=== PATIENT | female | born 1955 | race Caucasian/White ===

== ENCOUNTER → 2019-05-20 12:47 | Outpatient (BNVA) | payer MEDICARE, MEDICAID, SELFPAY | PROVIDERS: Family Provider Family Medicine; PCP Family Medicine; Visit Provider Nurse Practitioner Psychiatric/Mental Health | DX: F31.81 Bipolar II disorder (principal); F17.210 Nicotine dependence, cigarettes, uncomplicated; F41.1 Generalized anxiety disorder; F10.21 Alcohol dependence, in remission | CPT/HCPCS: 99213 ==

== ENCOUNTER → 2019-07-15 09:52 | Outpatient (BNVA) | payer MEDICARE, MEDICAID, SELFPAY | PROVIDERS: Family Provider Family Medicine; PCP Family Medicine; Visit Provider Nurse Practitioner Psychiatric/Mental Health | DX: F31.81 Bipolar II disorder (principal); F41.1 Generalized anxiety disorder; F17.210 Nicotine dependence, cigarettes, uncomplicated; F10.21 Alcohol dependence, in remission | CPT/HCPCS: 99213 ==

== ENCOUNTER → 2019-10-17 08:16 | Outpatient (BNVA) | payer MEDICARE, MEDICAID, SELFPAY | PROVIDERS: Family Provider Family Medicine; PCP Family Medicine; Visit Provider Nurse Practitioner Psychiatric/Mental Health | DX: F31.81 Bipolar II disorder (principal); F41.1 Generalized anxiety disorder; F17.210 Nicotine dependence, cigarettes, uncomplicated; F10.21 Alcohol dependence, in remission | CPT/HCPCS: 99213 ==

== ENCOUNTER → 2019-11-12 07:32 | Outpatient (BNVA) | payer MEDICARE, MEDICAID, SELFPAY | PROVIDERS: Family Provider Family Medicine; PCP Family Medicine; Visit Provider Nurse Practitioner Psychiatric/Mental Health | DX: F31.81 Bipolar II disorder (principal); F41.1 Generalized anxiety disorder; F17.210 Nicotine dependence, cigarettes, uncomplicated; F10.21 Alcohol dependence, in remission | CPT/HCPCS: 99214 ==

== ENCOUNTER → 2019-11-18 08:56 | Outpatient (BNVA) | payer MEDICARE, MEDICAID, SELFPAY | PROVIDERS: Family Provider Family Medicine; PCP Family Medicine; Visit Provider Nurse Practitioner Psychiatric/Mental Health | DX: Z79.899 Other long term (current) drug therapy (principal) | CPT/HCPCS: 80061; 83036 ==

== ENCOUNTER → 2019-12-11 07:27 | Outpatient (BNVA) | payer MEDICARE, MEDICAID, SELFPAY | PROVIDERS: Family Provider Family Medicine; PCP Family Medicine; Visit Provider Nurse Practitioner Psychiatric/Mental Health | DX: F31.81 Bipolar II disorder (principal); F41.1 Generalized anxiety disorder; F17.210 Nicotine dependence, cigarettes, uncomplicated; F10.21 Alcohol dependence, in remission | CPT/HCPCS: 99214 ==

== ENCOUNTER → 2020-01-22 07:52 | Outpatient (BNVA) | payer MEDICARE, MEDICAID, SELFPAY | PROVIDERS: Family Provider Family Medicine; PCP Family Medicine; Visit Provider Nurse Practitioner Psychiatric/Mental Health | DX: F31.81 Bipolar II disorder (principal); F41.1 Generalized anxiety disorder; F17.210 Nicotine dependence, cigarettes, uncomplicated; F10.21 Alcohol dependence, in remission | CPT/HCPCS: 99213 ==

== ENCOUNTER → 2020-02-26 07:30 | Outpatient (BNVA) | payer MEDICARE, MEDICAID, SELFPAY | PROVIDERS: Family Provider Family Medicine; PCP Family Medicine; Visit Provider Nurse Practitioner Psychiatric/Mental Health | DX: F31.81 Bipolar II disorder (principal); F41.1 Generalized anxiety disorder; F17.210 Nicotine dependence, cigarettes, uncomplicated; F10.21 Alcohol dependence, in remission | CPT/HCPCS: 99213 ==

== ENCOUNTER → 2020-04-20 07:41 | Outpatient (BNVA) | payer MEDICARE, MEDICAID, SELFPAY | PROVIDERS: Family Provider Family Medicine; PCP Family Medicine; Visit Provider Nurse Practitioner Psychiatric/Mental Health | DX: F31.81 Bipolar II disorder (principal); F41.1 Generalized anxiety disorder; F17.210 Nicotine dependence, cigarettes, uncomplicated | CPT/HCPCS: 99214 ==

== ENCOUNTER → 2020-04-21 14:58 | Outpatient (BNVA) | payer MEDICARE, MEDICAID, SELFPAY | PROVIDERS: Family Provider Family Medicine; PCP Family Medicine; Visit Provider Internal Medicine | DX: Z11.59 Encounter for screening for other viral diseases (principal); Z86.010 Personal history of colon polyps; Z01.818 Encounter for other preprocedural examination | CPT/HCPCS: 87635 ==

== ENCOUNTER 2020-04-27 08:29 | Day surgery (SDC) | payer MEDICARE, MEDICAID, SELFPAY ==
[2020-04-27 08:43] VITALS: BP 173/85; PULSE 81; RESP 18; O2SAT 96
[2020-04-27] MEDS: sodium chloride 0.9% 1,000 ML 30 ML IV (08:52)
--- NOTE | 2020-04-27 09:06 | ANES.PREANE2 ---
Pre-Anesthetic Assessment Pre-Anesthetic Assessment: Height/Weight: Height 1.65 m Weight 74.843 kg Pulse Resp BP Pulse Ox 81 18 173/85 96 04/27/20 08:43 04/27/20 08:43 04/27/20 08:43 04/27/20 08:43 Preop Diagnosis: hematochezia Proposed Procedure: Operation Date: 04/27/20 09:30 Proposed Procedures p Colonoscopy 40599 Z86.010(Not Applicable) - Tariq Carroll MD Familial anesthetic complications: None Was Beta Celina taken within 24 hours: N/A Last intake: Intake Last Liquid Date 04/26/20 Last Liquid Time 22:30 Last Solid Date 04/25/20 Last Solid Time 12:00 Social: Social History: Alcohol (bottle of wine nightly, last drink monday) and Tobacco Comment: No hx of seizures from alchohol withdrawal Exam: Pre-Anes Outpt Exam: alert, oriented x 3, clear to auscultation bilaterally and regular rate & rhythm Airway: MP: 3 Dentition: Full Pulmonary: Pulmonary: COPD CV/HEM: CV/HEM: HTN GI: GI: GERD Neuropsych: Neuropsych: Anxiety Anesthetic Plan: ASA status: 2 Anesthesia: MAC Risk of > 500 ml blood loss (7ml/kg in children): No Meds/Allergies Current Medications: Current Medications Generic Name Dose Route Start Last Admin Trade Name Freq PRN Reason Stop Dose Admin Sodium Chloride 1,000 mls @ 30 ml s/hr 04/27/20 08:45 04/27/20 08:52 Sodium Chloride 0.9% IV 04/28/20 08:44 30 mls/hr .Q24H BRITNEY Administration PFSH Anesthesia PFSH: Medical History Alcohol dependence in sustained full remission Bipolar II disorder Generalized anxiety disorder Nicotine dependence, cigarettes, uncomplicated Non morbid obesity Social History (Updated 04/21/20 @ 13:[address]) Smoking and tobacco status: current every day smoker Quit status (tobacco): has tried quititng History of recent travel: No Data Anesthesia Cardiac Studies: No Data to Display
--- NOTE | 2020-04-27 09:50 | W.PM.OPSUD ---
Surgery/Procedure H&P Update DATE OF PROCEDURE: April 27, 2020 DATE H&P PERFORMED: 04/21/20 PREOP DIAGNOSIS: hematochezia PLANNED PROCEDURE: Operation Date: 04/27/20 09:30 Proposed Procedures p Colonoscopy 49519 Z86.010(Not Applicable) - Tariq Carroll MD
[2020-04-27 10:23] VITALS: BP 150/82; PULSE 72; RESP 16; TEMP 36.1; O2SAT 97
[2020-04-27 10:41] VITALS: BP 161/72; PULSE 47; RESP 16; O2SAT 97
--- NOTE | 2020-04-27 11:53 | ANE.PACU2 ---
Documented by User: Manoj Rosenberg CRNA 04/27/20 11:53 Inpatient post-anesthesia follow up: Airway intact: Yes Vital signs: Temperature 97 F Pulse Rate 47 Respiratory Rate 16 Blood Pressure 161/72 Pulse Oximetry 97 Oxygen Delivery Me thod Room Air Oxygen Flow Rate Fraction of Inspir ed Oxygen Hydration adequate: Yes Nausea and vomiting: No Pain level: 1 Mental status: Baseline
== END 2020-04-27 10:55 | disposition home or self-care (01) ==
PROVIDERS: PCP Family Medicine; Visit Provider Internal Medicine
PROC: 0DJD8ZZ Inspection of Lower Intestinal Tract, Via Natural or Artificial Opening Endoscopic (ICD-10-PCS; CPT 45378; principal; 2020-04-27 09:30)
DX: K92.1 Melena (principal); K52.9 Noninfective gastroenteritis and colitis, unspecified; Z86.010 Personal history of colon polyps; F31.81 Bipolar II disorder; F17.210 Nicotine dependence, cigarettes, uncomplicated; J44.9 Chronic obstructive pulmonary disease, unspecified; I10 Essential (primary) hypertension; K21.9 Gastro-esophageal reflux disease without esophagitis; F41.9 Anxiety disorder, unspecified
CPT/HCPCS: 12345; 45380; 88305; J2704; J7030

== ENCOUNTER → 2020-05-18 07:37 | Outpatient (BNVA) | payer MEDICARE, MEDICAID, SELFPAY | PROVIDERS: PCP Family Medicine; Visit Provider Nurse Practitioner Psychiatric/Mental Health | DX: F31.81 Bipolar II disorder (principal); F41.1 Generalized anxiety disorder; F17.210 Nicotine dependence, cigarettes, uncomplicated | CPT/HCPCS: 99213 ==

== ENCOUNTER → 2020-07-06 07:27 | Outpatient (BNVA) | payer MEDICARE, MEDICAID, SELFPAY | PROVIDERS: PCP Family Medicine; Visit Provider Nurse Practitioner Psychiatric/Mental Health | DX: F31.81 Bipolar II disorder (principal); F41.1 Generalized anxiety disorder; F17.210 Nicotine dependence, cigarettes, uncomplicated; F10.21 Alcohol dependence, in remission | CPT/HCPCS: 99214 ==

== ENCOUNTER → 2020-08-24 07:29 | Outpatient (BNVA) | payer MEDICARE, MEDICAID, SELFPAY | PROVIDERS: PCP Family Medicine; Visit Provider Nurse Practitioner Psychiatric/Mental Health | DX: F31.81 Bipolar II disorder (principal); F41.1 Generalized anxiety disorder; F17.210 Nicotine dependence, cigarettes, uncomplicated; F10.21 Alcohol dependence, in remission | CPT/HCPCS: 99214 ==

== ENCOUNTER → 2020-09-28 07:19 | Outpatient (BNVA) | payer MEDICARE, MEDICAID, SELFPAY | PROVIDERS: PCP Family Medicine; Visit Provider Nurse Practitioner Psychiatric/Mental Health | DX: F31.81 Bipolar II disorder (principal); F41.1 Generalized anxiety disorder; F17.210 Nicotine dependence, cigarettes, uncomplicated; Z79.899 Other long term (current) drug therapy; F10.21 Alcohol dependence, in remission | CPT/HCPCS: 99214 ==

== ENCOUNTER → 2020-09-30 09:24 | Outpatient (BNVA) | payer MEDICARE, MEDICAID, SELFPAY | PROVIDERS: PCP Family Medicine; Visit Provider Nurse Practitioner Psychiatric/Mental Health | DX: S82.851A Displaced trimalleolar fracture of right lower leg, initial encounter for closed fracture (principal); X58.XXXA Exposure to other specified factors, initial encounter | CPT/HCPCS: 73610 ==

== ENCOUNTER 2020-09-30 15:32 | Outpatient (CLI) | payer MEDICARE, MEDICAID, SELFPAY | END 2020-09-30 15:33 | disposition home or self-care (01) | LOC: SPT 15:33 | PROVIDERS: PCP Family Medicine; Visit Provider Specialist | DX: Z46.89 Encounter for fitting and adjustment of other specified devices (principal); S82.851D Displaced trimalleolar fracture of right lower leg, subsequent encounter for closed fracture with routine healing; X58.XXXD Exposure to other specified factors, subsequent encounter | CPT/HCPCS: 80053; 80061; 83036; 97760; L4361 ==

== ENCOUNTER 2020-09-30 20:35 | Emergency (ER) | payer MEDICARE, MEDICAID, SELFPAY ==
[2020-09-30 20:45] VITALS: BP 154/69; PULSE 86; RESP 16; TEMP 36.8; O2SAT 95; BMI 26.1
[2020-09-30 21:02] VITALS: BP 140/71; PULSE 83; RESP 18; O2SAT 95
--- NOTE | 2020-09-30 21:06 | W.ED.GENADLT ---
HPI - General Adult General: Chief complaint: General Medical Stated complaint: low potassium, low sodium Time Seen by Provider: 09/30/20 20:39 Source: patient Mode of arrival: ambulatory Limitations: no limitations History of Present Illness: HPI narrative: 65-year-old female who states she had. But none today and her provider called her today and told she come the ER for low sodium and potassium. Her sodium level was 129 potassium was 2.8. She has no medical complaints. States she been feeling fine. She had no Associated symptoms: Deny chest pain, dyspnea, headache(s), nausea, rash or vomiting Review of Systems Const: Denies: fever(s), chills, body aches or change in appetite Eyes: Denies: blurry vision or eye discomfort ENMT: Denies: throat pain or dental pain Card: Denies: chest pain Resp: Denies: dyspnea GI: Denies: abdominal pain, nausea, vomiting or diarrhea : Denies: dysuria Musc: Denies: neck pain or back pain Skin/Breast: Denies: rash Neuro: Denies: headache(s) Psych: Denies: depression Neil/Lymph: Denies: easy bruising All/Imm: Denies: urticaria PFSH ED PFSH: Medical History Alcohol dependence in sustained full remission Bipolar II disorder Generalized anxiety disorder Nicotine dependence, cigarettes, uncomplicated Non morbid obesity Social History Smoking and tobacco status: current every day smoker Quit status (tobacco): has tried quititng History of recent travel: No Physical Exam Const: COMMON NORMALS: no acute distress, patient oriented x3 and healthy appearing HENMT: COMMON NORMALS: normocephalic and atraumatic HEAD & SCALP: normocephalic and atraumatic Eye: COMMON NORMALS: Equal, round and reactive pupils present and EOMs intact bilaterally PUPIL: Yes Equal, round and reactive pupils present Neck/C-Spine: COMMON NORMALS: full ROM and supple Chest: COMMONS NORMALS: normal inspection of the chest and normal palpation of entire chest wall Resp: COMMON NORMALS: normal respiratory effort, No retractions, No use of accessory muscles and clear to auscultation bilaterally AUSCULTATION: clear to auscultation bilaterally Cardio: COMMON NORMALS: regular rate, regular rhythm and No murmurs present (Cardio) RATE: regular rate RHYTHM: regular rhythm GI: COMMON NORMALS: Normal to inspection, nondistended, normoactive bowel sounds present, Soft to palpation, non-tender and no masses PALPATION: Yes Soft to palpation Extremity: COMMON NORMALS: normal to inspection and full ROM Neuro: COMMON NORMALS: patient oriented x3, moves all extremities and no focal motor deficits Psych: COMMON NORMALS: mental status grossly normal, Normal thought process present and cooperative THOUGHT PROCESS: Normal thought process present Skin: COMMON NORMALS: no rashes or lesions noted and no wounds GENERAL SKIN EXAM: no rashes or lesions noted Course Vital Signs: Vital signs: Vital Signs Temperature 98.2 F 09/30/20 20:45 Pulse Rate 74 09/30/20 21:59 Respiratory Rate 18 09/30/20 21:02 Blood Pressure 150/84 09/30/20 21:59 Pulse Oximetry 95 09/30/20 21:02 MDM - General Adult MDM Narrative: Medical decision making narrative: Patient presents here with hyponatremia and hypokalemia. Patient is asymptomatic and feels well. Did give patient IV fluids here and potassium replacements. I recommended a repeat BMP here before I discharged her. She states she feels well and just wants to go home. I strongly recommended a repeat BMP but she refused at this time. Informed to drink plenty of fluids at home and will discharge her with potassium replacement. She is to follow-up with PCP in 2 to 4 days and needs a repeat BMP then. She is return if she has any worsening. She understands agrees to plan. Lab Data: Labs: Lab Results 09/30/20 09/30/20 Range/Units 21:00 21:00 WBC 7.7 (4.0-10.0) 10^3/ uL RBC 4.11 (4.1-5.3) 10^6/u L Hgb 13.7 (11.5-15.3) g/dL Hct 38.4 (37.0-47.0) % MCV 93.4 (81-99) fL MCH 33.3 (28.0-34.0) pg MCHC 35.7 (30.0-36.0) g/dL RDW 13.0 (12.1-15.1) % Plt Count 351 (130-400) 10^3/c mm MPV 8.7 (7.4-10.4) fL Neut % (Auto) 47.1 % Lymph % (Auto) 41.3 % [place] % (Auto) 9.4 % Eos % (Auto) 1.3 % Baso % (Auto) 0.5 % Neut # (Auto) 3.64 (1.8-7.7) 10^3/u L Lymph # (Auto) 3.2 (0.8-4.8) 10^3/u L [place] # (Auto) 0.7 (0.2-0.9) 10^3/u L Eos # (Auto) 0.1 (0.0-0.8) 10^3/u L Baso # (Auto) 0.0 (0.0-0.1) 10^3/u L Nucleated RBC % (a uto) 0 % Nucleated RBCs # 0.0 /100WBC Sodium 126 L (136-145) mmol/L Potassium 2.9 L (3.5-5.1) mmol/L Chloride 86 L (98-107) mmol/L Carbon Dioxide 25 (22-29) mmol/L Anion Gap 17.9 (5-19) BUN 6 L (8-23) mg/dL Creatinine 0.5 (0.5-0.9) mg/dL GFR Calculation 123.8 (90-130) mL/min Glucose 113 (65-115) mg/dL Calculated Osmolal ity 260 L (285-295) mOsm/k g Calcium 9.0 (8.5-10.5) mg/dL Magnesium 1.9 (1.7-2.3) mg/dL Total Bilirubin 0.4 (0.15-1.2) mg/dL AST 29 (0-32) U/L ALT 11 (0-33) U/L Alkaline Phosphata se 106 H (35-105) IU/L Total Protein 6.9 (6.6-8.7) g/dL Albumin 4.7 (3.5-5.2) g/dL Globulin 2.2 (1.3-4.6) g/dL Discharge Plan Discharge Patient Disposition: Home Clinical Impression: Hyponatremia, Hypokalemia Condition: Stable Prescriptions: New potassium chloride 20 mEq packet 40 meq PO BID 7 Days RF: 0 No Action alprazolam [Xanax] 0.5 mg tablet 0.5 mg PO BID PRN (Reason: anxiety) Qty: 60 RF: 3 Trintellix 20 mg tablet 20 mg PO QAM Qty: 30 RF: 3 Chantix 1 mg tablet 1 mg PO BID Qty: 56 RF: 3 (DME) Jeffery Walker See Rx Instructions .ROUTE .MEDSUPPLY Qty: 1 RF: 0 prednisone 20 mg tablet 20 mg PO DAILY Qty: 20 RF: 0 sumatriptan succinate [Imitrex STATdose Pen] 6 mg/0.5 mL pen injector 6 mg SUBCUT .prn 30 Days Qty: 0.5 RF: 5 trazodone 50 mg tablet 150 mg PO BEDTIME@2100 RF: 0 omeprazole 20 mg capsule,delayed release(DR/EC) 20 mg PO DAILY@0800 RF: 0 hydrochlorothiazide 25 mg tablet 25 mg PO DAILY@0500 RF: 0 Lamictal 100 mg tablet 100 mg PO DAILY@2200 RF: 0 Abilify 5 mg tablet 5 mg PO DAILY@0500 RF: 0 Tylenol 325 mg Tablet 325 - 650 mg PO Q4H PRN (Reason: Pain) RF: 0 Discharge Orders: Discharge ED (Routine); Ordered 09/30/20 Ordered By: Anna George Referrals: Sven Gallardo MD [Primary Care Provider] - 1-3 days Discharge Diet: Advance as tolerated Discharge Activity: Resume usual activity Patient Instructions: Hyponatremia (ED), Hypokalemia (ED) Coding Level of Care Code ED Boiler Installer for Sherryg Fwd Exam Comprehensive
[2020-09-30] MEDS: sodium chloride 0.9% 1,000 ML 999 ML IV (21:14)
[2020-09-30 21:21] LABS: Basophils % 0.5 %; Eosinophils # 0.1 10^3/uL (0.0-0.8); Eosinophils % 1.3 %; Hematocrit 38.4 % (37.0-47.0); Hemoglobin 13.7 g/dL (11.5-15.3); Lymphocytes # 3.2 10^3/uL (0.8-4.8); Lymphocytes % 41.3 %; Mean Corpuscular HGB Conc 35.7 g/dL (30.0-36.0); Mean Corpuscular Hemoglobin 33.3 pg (28.0-34.0); Mean Corpuscular Volume 93.4 fL (81-99); Mean Platelet Volume 8.7 fL (7.4-10.4); Monocytes # 0.7 10^3/uL (0.2-0.9); Monocytes % 9.4 %; Neutrophils # 3.64 10^3/uL (1.8-7.7); Neutrophils % 47.1 %; Nucleated Red Blood Cells % 0 %; Platelet Count 351 10^3/cmm (130-400); Red Blood Count 4.11 10^6/uL (4.1-5.3); White Blood Count 7.7 10^3/uL (4.0-10.0)
[2020-09-30 21:30] LABS: Alanine Aminotransferase 11 U/L (0-33); Albumin Level 4.7 g/dL (3.5-5.2); Alkaline Phosphatase 106 IU/L (35-105); Anion Gap 17.9 (5-19); Aspartate Amino Transferase 29 U/L (0-32); Blood Urea Nitrogen 6 mg/dL (8-23); Carbon Dioxide 25 mmol/L (22-29); Chloride 86 mmol/L (98-107); Globulin 2.2 g/dL (1.3-4.6); Glomerular Filtration Rate 123.8 mL/min (90-130); Glucose 113 mg/dL (65-115); Magnesium 1.9 mg/dL (1.7-2.3); Osmolality Calculated 260 mOsm/kg (285-295); Sodium 126 mmol/L (136-145); Total Bilirubin 0.4 mg/dL (0.15-1.2); Total Protein 6.9 g/dL (6.6-8.7)
[2020-09-30 21:31] LABS: Potassium 2.9 mmol/L (3.5-5.1)
[2020-09-30] MEDS: sodium chloride 0.9% 500 ML 999 ML IV (21:58)
[2020-09-30] MEDS: potassium chloride ER 20 mEq Tablet 40 MEQ PO (21:58)
[2020-09-30 21:59] VITALS: BP 150/84; PULSE 74
--- NOTE | 2020-09-30 23:07 | PC.NURSE ---
Pt requested to go home. Pt states I'm fine, I'm ready to go . Physician notified.
[2020-09-30 23:16] VITALS: BP 169/78; PULSE 77; RESP 18; TEMP 36.6; O2SAT 97
== END 2020-09-30 23:18 | disposition home or self-care (01) ==
PROVIDERS: Emergency Provider Emergency Medicine; PCP Family Medicine
DX: E87.1 Hypo-osmolality and hyponatremia (principal); E87.6 Hypokalemia; F17.210 Nicotine dependence, cigarettes, uncomplicated
CPT/HCPCS: 80053; 83735; 85025; 96360; 99283; J7030; J7040

== ENCOUNTER → 2020-10-07 13:03 | Outpatient (BNVA) | payer MEDICARE, MEDICAID, SELFPAY | PROVIDERS: PCP Family Medicine; Visit Provider Family Medicine | DX: E87.6 Hypokalemia (principal) | CPT/HCPCS: 80048 ==

== ENCOUNTER → 2020-10-14 14:53 | Outpatient (BNVA) | payer MEDICARE, MEDICAID, SELFPAY | PROVIDERS: PCP Family Medicine; Visit Provider Specialist | DX: S82.851A Displaced trimalleolar fracture of right lower leg, initial encounter for closed fracture (principal); M25.571 Pain in right ankle and joints of right foot; X58.XXXA Exposure to other specified factors, initial encounter; Z46.89 Encounter for fitting and adjustment of other specified devices; S82.851D Displaced trimalleolar fracture of right lower leg, subsequent encounter for closed fracture with routine healing; X58.XXXD Exposure to other specified factors, subsequent encounter | CPT/HCPCS: 73610; 97760; L1902 ==

== ENCOUNTER 2020-10-14 16:43 | Outpatient (CLI) | payer MEDICARE, MEDICAID, SELFPAY | END 2020-10-14 16:44 | disposition home or self-care (01) | LOC: SPT 16:44 | PROVIDERS: PCP Family Medicine; Visit Provider Specialist | DX: Z46.89 Encounter for fitting and adjustment of other specified devices (principal); S82.851D Displaced trimalleolar fracture of right lower leg, subsequent encounter for closed fracture with routine healing; X58.XXXD Exposure to other specified factors, subsequent encounter | CPT/HCPCS: 97760; L1902 ==

== ENCOUNTER → 2020-10-26 08:07 | Outpatient (BNVA) | payer MEDICARE, MEDICAID, SELFPAY | PROVIDERS: PCP Family Medicine; Visit Provider Nurse Practitioner Psychiatric/Mental Health | DX: F31.81 Bipolar II disorder (principal); F41.1 Generalized anxiety disorder; F17.210 Nicotine dependence, cigarettes, uncomplicated; F10.21 Alcohol dependence, in remission; Z79.899 Other long term (current) drug therapy | CPT/HCPCS: 99214 ==

== ENCOUNTER → 2020-12-29 08:02 | Outpatient (BNVA) | payer MEDICARE, MEDICAID, SELFPAY | PROVIDERS: PCP Family Medicine; Visit Provider Nurse Practitioner Psychiatric/Mental Health | DX: F31.81 Bipolar II disorder (principal); F41.1 Generalized anxiety disorder; F17.210 Nicotine dependence, cigarettes, uncomplicated; F10.21 Alcohol dependence, in remission | CPT/HCPCS: 99214 ==

== ENCOUNTER → 2021-02-23 06:59 | Outpatient (BNVA) | payer MEDICARE, MEDICAID, SELFPAY | PROVIDERS: PCP Family Medicine; Visit Provider Nurse Practitioner Psychiatric/Mental Health | DX: F31.81 Bipolar II disorder (principal); F41.1 Generalized anxiety disorder; F17.210 Nicotine dependence, cigarettes, uncomplicated; F10.21 Alcohol dependence, in remission | CPT/HCPCS: 99214 ==

== ENCOUNTER → 2021-03-30 07:50 | Outpatient (BNVA) | payer MEDICARE, MEDICAID, SELFPAY | PROVIDERS: PCP Family Medicine; Visit Provider Nurse Practitioner Psychiatric/Mental Health | DX: F31.81 Bipolar II disorder (principal); F41.1 Generalized anxiety disorder; F17.210 Nicotine dependence, cigarettes, uncomplicated; F10.21 Alcohol dependence, in remission | CPT/HCPCS: 99214 ==

== ENCOUNTER → 2021-04-20 15:19 | Outpatient (BNVA) | payer MEDICARE, MEDICAID, SELFPAY | PROVIDERS: PCP Family Medicine; Visit Provider Family Medicine | DX: M17.11 Unilateral primary osteoarthritis, right knee (principal) | CPT/HCPCS: 73562 ==

== ENCOUNTER → 2021-06-29 08:21 | Outpatient (BNVA) | payer MEDICARE, MEDICAID, SELFPAY | PROVIDERS: PCP Family Medicine; Visit Provider Nurse Practitioner Psychiatric/Mental Health | DX: F31.81 Bipolar II disorder (principal); F41.1 Generalized anxiety disorder; F17.210 Nicotine dependence, cigarettes, uncomplicated; F10.21 Alcohol dependence, in remission | CPT/HCPCS: 99214 ==

== ENCOUNTER 2021-07-06 08:39 | Outpatient (CLI) | payer MEDICARE, MEDICAID, SELFPAY ==
--- NOTE | 2021-07-06 08:43 | XR_ITS ---
WS: [id number] HIP WITH PELVIS RIGHT TECHNIQUE: 3 views of the right hip with pelvis CLINICAL INFORMATION: worsening right leg pain COMPARISON: FINDINGS: Mild to moderate degenerative arthritis RIGHT hip with joint space narrowing. No acute fractures. Nor mal RIGHT pubic rami. Pelvic phleboliths. XR/XR hip RT 2-3V wo/w pel* [id number] IMPRESSION: Mild to moderate degenerative arthritis RIGHT hip. No acute fractures. Tonnis classification: grade 2: small cysts in femoral head/acetabulum or moder ate joint space narrowing or moderate loss of head sphericity
--- NOTE | 2021-07-06 08:43 | XR_ITS ---
WS: [id number] LUMBAR SPINE TECHNIQUE: 3 views of the lumbar spine CLINICAL INFORMATION: worsening right leg pain COMPARISON: None. FINDINGS: Five [id number] lumbar vertebral bodies. Small riblets at T12. Osteopenia. Cholecystectomy clips . Disc space narrowing worse L4-L5 and L5-S1. Slight anterolisthesis L4 on L5 measuring 4.5 mm. Moderat e facet arthropathy L4-L5 and L5-S1. No acute compression fractures XR/XR lumbar spine 2-3V* [id number] IMPRESSION: 1. Mild spondylitic changes disc space narrowing worse at L4-L5 and L5-S1. 2. Slight anterolisthesis L4 on L5 measuring 4.5 mm. 3. Moderate facet arthropathy L4-L5 and L5-S1. 4. No acute compression fractures.
== END 2021-07-06 08:40 | disposition home or self-care (01) ==
LOC: RAD 08:43
PROVIDERS: PCP Family Medicine; Visit Provider Family Medicine
DX: M79.604 Pain in right leg (principal); M16.11 Unilateral primary osteoarthritis, right hip; M47.816 Spondylosis without myelopathy or radiculopathy, lumbar region; M47.817 Spondylosis without myelopathy or radiculopathy, lumbosacral region
CPT/HCPCS: 72100; 73502

== ENCOUNTER → 2021-07-29 08:08 | Outpatient (BNVA) | payer MEDICARE, MEDICAID, SELFPAY | PROVIDERS: PCP Family Medicine; Visit Provider Nurse Practitioner Psychiatric/Mental Health | DX: F31.81 Bipolar II disorder (principal); F41.1 Generalized anxiety disorder; F17.210 Nicotine dependence, cigarettes, uncomplicated; F10.21 Alcohol dependence, in remission | CPT/HCPCS: 99214 ==

== ENCOUNTER 2021-08-16 14:41 | Outpatient (CLI) | payer MEDICARE, MEDICAID, SELFPAY ==
--- NOTE | 2021-08-16 15:15 | MR_ITS ---
WS: [id number] MRI LUMBAR SPINE NONCONTRAST HISTORY: M51.16 - Intervertebral disc disorders with radiculopathy..., RIGHT groin and leg pain. COMPARISON: CT 02/03/2019 TECHNIQUE: Sagittal and axial multisequence imaging is submitted. Mild anterior wedging and prior compression fractures at T3, T4 and T5. Mild disc bulging and small o steophytes throughout the thoracic spine. 5 lumbar type vertebral bodies. Rudimentary ribs are noted involving the most inferior thoracic verte bral body as seen on a prior CT. L4 anterolisthesis by 5 mm. Mild disc desiccation without narrowing throughout the thoracic spine. No fracture or marrow edema. Conus terminates normally at L1-2 disc level. L1-L2: Mild annular disc bulge. No stenosis. L2-L3: Annular disc bulging slightly asymmetric to the LEFT. Mild ligamentum flavum and facet arthrit is. No significant stenosis. L3-L4: Annular disc bulge with a moderate-sized RIGHT subarticular and foraminal disc protrusion. Dis c is extending into the foramen causing a moderate stenosis and contacts both the RIGHT L3 and L4 ner ve roots. Very mild narrowing of the LEFT foramen. L4-L5: Diffuse annular disc bulging and osteophytic ridging. Ligamentum flavum hypertrophy is moderat e bilateral. Slightly greater hypertrophy involving the LEFT ligamentum flavum. Combination of findin gs is resulting in at least mild central, bilateral subarticular recess and foraminal stenosis. Sligh tly greater contact on the LEFT traversing L5 nerve root. L5-S1: Mild disc bulge with a central tiny protrusion. Mild contact but no displacement on the S1 ner ve roots. MR/MR lumbar spine wo con* [id number] IMPRESSION: 1. There is at least mild central, bilateral subarticular recess and foraminal stenosis at L4-5 due to combination of disc disease and facet disease. Greates t contact with displacement involving the LEFT traversing L5 nerve root. 2. Moderate size RIGHT subarticular and foraminal disc protrusion at L3-4 with mild contact on both the RIGHT L3 and L4 nerve roots. Moderate stenosis RIGHT L3-4 foramen. 3. Very small central disc protrusion at L5-S1 with minimal contact on the S1 nerve roots.
== END 2021-08-16 14:42 | disposition home or self-care (01) ==
PROVIDERS: PCP Family Medicine; Visit Provider Family Medicine
DX: M51.16 Intervertebral disc disorders with radiculopathy, lumbar region (principal); M48.061 Spinal stenosis, lumbar region without neurogenic claudication; M51.36 Other intervertebral disc degeneration, lumbar region; M51.26 Other intervertebral disc displacement, lumbar region; M51.27 Other intervertebral disc displacement, lumbosacral region
CPT/HCPCS: 72148

== ENCOUNTER → 2021-08-19 09:25 | Outpatient (BNVA) | payer MEDICARE, MEDICAID, SELFPAY | PROVIDERS: PCP Family Medicine; Referring Provider Family Medicine; Visit Provider Physician Assistant | DX: M51.36 Other intervertebral disc degeneration, lumbar region (principal); M51.26 Other intervertebral disc displacement, lumbar region; M43.16 Spondylolisthesis, lumbar region | CPT/HCPCS: 99204; 99999 ==

== ENCOUNTER → 2021-08-24 12:49 | Outpatient (BNVA) | payer MEDICARE, MEDICAID, SELFPAY | PROVIDERS: PCP Family Medicine; Referring Provider Physician Assistant; Visit Provider Anesthesiology Pain Medicine | DX: G89.29 Other chronic pain (principal); M43.16 Spondylolisthesis, lumbar region; M51.26 Other intervertebral disc displacement, lumbar region; M51.36 Other intervertebral disc degeneration, lumbar region; M51.16 Intervertebral disc disorders with radiculopathy, lumbar region; M54.2 Cervicalgia; M17.11 Unilateral primary osteoarthritis, right knee; F17.210 Nicotine dependence, cigarettes, uncomplicated; Z79.891 Long term (current) use of opiate analgesic | CPT/HCPCS: 99205 ==

== ENCOUNTER → 2021-08-30 12:32 | Outpatient (BNVA) | payer MEDICARE, MEDICAID, SELFPAY | PROVIDERS: PCP Family Medicine; Visit Provider Anesthesiology Pain Medicine | DX: G89.29 Other chronic pain (principal); M54.16 Radiculopathy, lumbar region; F17.210 Nicotine dependence, cigarettes, uncomplicated; Z79.891 Long term (current) use of opiate analgesic | CPT/HCPCS: 64483; 64484; J1100; J3490 ==

== ENCOUNTER → 2021-09-13 12:38 | Outpatient (BNVA) | payer MEDICARE, MEDICAID, SELFPAY | PROVIDERS: PCP Family Medicine; Visit Provider Anesthesiology Pain Medicine | DX: G89.29 Other chronic pain (principal); M54.16 Radiculopathy, lumbar region; F17.210 Nicotine dependence, cigarettes, uncomplicated; Z79.891 Long term (current) use of opiate analgesic | CPT/HCPCS: 64483; 64484; J1100; J3490 ==

== ENCOUNTER → 2021-09-20 13:12 | Outpatient (BNVA) | payer MEDICARE, MEDICAID, SELFPAY | PROVIDERS: PCP Family Medicine; Visit Provider Nurse Practitioner Psychiatric/Mental Health | DX: F31.81 Bipolar II disorder (principal); F41.1 Generalized anxiety disorder; F17.210 Nicotine dependence, cigarettes, uncomplicated; F10.21 Alcohol dependence, in remission; Z79.899 Other long term (current) drug therapy | CPT/HCPCS: 99214 ==

== ENCOUNTER → 2021-10-04 12:42 | Outpatient (BNVA) | payer MEDICARE, MEDICAID, SELFPAY | PROVIDERS: PCP Family Medicine; Visit Provider Anesthesiology Pain Medicine | DX: G89.29 Other chronic pain (principal); M43.16 Spondylolisthesis, lumbar region; M51.26 Other intervertebral disc displacement, lumbar region; M51.36 Other intervertebral disc degeneration, lumbar region; M51.16 Intervertebral disc disorders with radiculopathy, lumbar region; M51.17 Intervertebral disc disorders with radiculopathy, lumbosacral region; M17.11 Unilateral primary osteoarthritis, right knee; M54.2 Cervicalgia; M79.605 Pain in left leg; F17.210 Nicotine dependence, cigarettes, uncomplicated; Z79.891 Long term (current) use of opiate analgesic | CPT/HCPCS: 99212 ==

== ENCOUNTER → 2021-10-05 10:12 | Outpatient (BNVA) | payer MEDICARE, MEDICAID, SELFPAY | PROVIDERS: PCP Family Medicine; Visit Provider Physician Assistant | DX: M43.16 Spondylolisthesis, lumbar region (principal); M51.26 Other intervertebral disc displacement, lumbar region; M51.37 Other intervertebral disc degeneration, lumbosacral region | CPT/HCPCS: 99213; 99214 ==

== ENCOUNTER 2021-11-08 06:00 | Day surgery (SDC) | payer MEDICARE, MEDICAID, SELFPAY ==
[2021-11-08 09:47] VITALS: BMI 27.1
--- NOTE | 2021-11-08 10:46 | ANES.PREANE2 ---
Pre-Anesthetic Assessment Height/Weight: Height 1.63 m Weight 71.668 kg Preop Diagnosis: hematochezia Operation Date: 11/10/21 07:00 Proposed Procedures p Spinal Fusion W/PLIF L3 L4/5 L5/S1 [id number]/M43.16(Not Applicable) - Adrien Nascimento, DO Familial anesthetic complications: none Social Alcohol (drink a bottle of wine nightly - drinking to kill pain) and Tobacco Airway Mallampati: Class III Dentition: false and full Pulmonary Chronic Obstructive Pulmonary Disease CV/HEM Hypertension GI Gastroesophageal Reflux Disease Anesthetic Plan ASA status: 3 Anesthesia: General Risk of > 500 ml blood loss (7ml/kg in children): No Other Pertinent Information Patient took phentermine on monday and will only be out by 5 days before surgery - will need to wait at least 2 more days Medications/Allergies Home Medications Medication Instructions Recorded Confirmed Last Taken Type acetaminophen 325 mg tablet 325 - 650 mg PO Q4H PRN 09/30/20 11/08/21 09/30/20 History (Tylenol) hydrochlorothiazide 25 mg tablet 25 mg PO DAILY@0500 #90 tab 07/15/21 11/08/21 Unknown Rx omeprazole 20 mg capsule,delayed See Rx Instructions .ROUTE 08/17/21 11/08/21 Unknown Rx release .COMPLEX #30 cap alprazolam 0.5 mg tablet (Xanax) 0.5 mg PO BID PRN #60 tab 09/20/21 11/08/21 Unknown Rx aripiprazole 5 mg tablet (Abilify) 5 mg PO .morning #30 tab 09/20/21 11/08/21 Unknown Rx lamotrigine 200 mg tablet 200 mg PO .5 pm #30 tab 09/20/21 11/08/21 Unknown Rx (Lamictal) trazodone 50 mg tablet 150 mg PO DIRECTED #90 tab 09/20/21 11/08/21 Unknown Rx vortioxetine 20 mg tablet 20 mg PO QAM #30 tab 09/20/21 11/08/21 Unknown Rx (Trintellix) cyclobenzaprine 5 mg tablet 5 mg PO Q8H 7 Days #21 tab 09/30/21 11/08/21 Unknown Rx diclofenac potassium 50 mg tablet 50 mg PO TID PRN 7 Days #20 tab 09/30/21 11/08/21 Unknown Rx phentermine 37.5 mg tablet 37.5 mg PO DAILY #30 tab 10/13/21 11/08/21 11/05/21 Rx Bone Growth Stimulator E0748 #1 ea 11/01/21 Unknown Rx Allergies Allergy/AdvReac Type Severity Reaction Status Date / Time codeine Allergy Unknown Unknown Verified 10/05/21 10:17 meperidine [From Demerol] Allergy Unknown Unknown Verified 10/05/21 10:17 Penicillins Allergy Unknown Unknown Verified 10/05/21 10:17 prochlorperazine Allergy Unknown Unknown Verified 10/05/21 10:17 [From Compazine] [facility] Anesthesia Medical History Alcohol dependence in sustained full remission Bipolar II disorder Generalized anxiety disorder Nicotine dependence, cigarettes, uncomplicated Non morbid obesity Psychiatric care Solar aging of skin Social History Smoking and tobacco status: current every day smoker cigarettes Quit status (tobacco): has tried quititng History of recent travel: No Data Anesthesia : 11/08/21 10:03 Cardiac Studies: No Data to Display
--- NOTE | 2021-11-08 10:58 | ECG_ITS ---
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 Measurements Intervals [place] Rate: 75 P: 43 [place]: 197 QRS: -27 QRSD: 104 T: 54 QT: 375 QTc: 421 Interpretive Statements SINUS RHYTHM BORDERLINE LEFT AXIS DEVIATION [QRS AXIS < -20] Compared to ECG 05/28/2015 15:11:22 No significant changes Electronically Signed On 11-08-2021 17:36:12 CDT by Jenaro Oseguera M.D. [id number] f
[2021-11-08 11:12] LABS: Blood Urea Nitrogen 5 mg/dL (8-23); Calcium 9.1 mg/dL (8.5-10.5); Carbon Dioxide 28 mmol/L (22-29); Chloride 89 mmol/L (98-107); Glomerular Filtration Rate 123.4 mL/min (90-130); Glucose 132 mg/dL (65-115); Osmolality Calculated 271 mOsm/kg (285-295); Sodium 131 mmol/L (136-145)
[2021-11-08 11:27] LABS: Anion Gap 16.6 (5-19); Potassium 2.6 mmol/L (3.5-5.1)
--- NOTE | 2021-11-08 11:28 | SUR.PREOP ---
critical potassium level called from lab. Level 2.[address] Patel
--- NOTE | 2021-11-08 11:37 | SUR.PREOP ---
Dr Nascimento's office was notified of critical lab result. They will contact patient to refer to PCP or ER for potassium replacement.
== END 2021-11-08 06:01 | disposition home or self-care (01) ==
LOC: OR 02-21 20:45
PROVIDERS: Anesthesiology; PCP Family Medicine; Visit Provider Orthopaedic Surgery
DX: Z01.818 Encounter for other preprocedural examination (principal)
CPT/HCPCS: 80048; 93005

== ENCOUNTER → 2021-11-17 08:21 | Outpatient (BNVA) | payer MEDICARE, MEDICAID, SELFPAY | PROVIDERS: PCP Family Medicine; Visit Provider Nurse Practitioner Psychiatric/Mental Health | DX: Z79.899 Other long term (current) drug therapy (principal) | CPT/HCPCS: 80053; 80061; 83036 ==

== ENCOUNTER 2021-12-22 15:26 | Inpatient (IN) | payer MEDICARE, MEDICAID, SELFPAY ==
[2021-12-21 09:48] VITALS: BMI 24.7
[2021-12-21 10:36] LABS: Basophils % 0.3 %; Eosinophils # 0.1 10^3/uL (0.0-0.8); Eosinophils % 0.8 %; Hematocrit 39.1 % (37.0-47.0); Hemoglobin 13.7 g/dL (11.5-15.3); Lymphocytes # 1.7 10^3/uL (0.8-4.8); Lymphocytes % 11.7 %; Mean Corpuscular Hemoglobin 32.1 pg (28.0-34.0); Mean Corpuscular Volume 91.6 fl (81-99); Mean Platelet Volume 9.2 fL (7.4-10.4); Monocytes # 0.9 10^3/uL (0.2-0.9); Monocytes % 6.4 %; Neutrophils # 11.16 10^3/uL (1.8-7.7); Nucleated Red Blood Cells % 0 %; Platelet Count 712 10^3/cmm (130-400); Red Blood Count 4.27 10^6/uL (4.1-5.3); Red Cell Distribution Width 12.6 % (12.1-15.1); White Blood Count 14.1 10^3/uL (4.0-10.0)
--- NOTE | 2021-12-21 10:43 | ANES.PREANE2 ---
Pre-Anesthetic Assessment Height/Weight: Height 1.63 m Weight 65.317 kg Preop Diagnosis: hematochezia Operation Date: 12/22/21 11:20 Proposed Procedures p Spinal Fusion L3-pelvis [id number](Not Applicable) - Adrien Nascimento DO s Posterior Lumbar Interbody Fusion L4/5 L5/S1 SI JOINT FUSION M43.16(Not Applicable) - Adrien Nascimento DO Familial anesthetic complications: None Was Beta Celina taken within 24 hours: N/A Was Clonidine taken within 24 hours: N/A Social Tobacco and No alcohol ETOH abuse hx, no withdrawl seizures or DTs. Uses marijuana Exam alert, oriented x 3, clear to auscultation bilaterally and regular rate & rhythm Airway Submandibular: within normal limits Cervical ROM: within normal limits Mallampati: Class II Dentition: false Pulmonary Denies COPD, asthma, CHASITY CV/HEM METS > 4 Sodium 127 K 3.2 Chronic hyponatremia Recurrent hypokalemia Hepatic None reported GI Hx of hematochezia Metabolic None reported Musc/skel Lower Back Pain, Osteoarthritis/DJD and None reported Sciatic nerve pain Spondylolisthesis Herniated disc Neuropsych Bipolar and Neuropathy Denies recent falls/head trauma Anesthetic Plan ASA status: 3 (66 year old smoker with hx of ETOH abuse, marijuana use, hypokalemaia, hyponatremia ) Anesthesia: Anesthesia Evaluation and General Other: We discussed risk and benefits of general anesthesia including PONV, sore throat (sometimes severe), corneal abrasion, positioning and peripheral nerve injuries, life threatening allergic reaction, post operative ICU admission requiring prolonged intubation, stroke, heart attack, , and rare incidences of recall. Patient consents to proceed with general anesthesia. Plan GETA, 2 PIV, arterial line Risk of > 500 ml blood loss (7ml/kg in children): Yes, adequate IV access and fluids planned Medications/Allergies Home Medications Medication Instructions Recorded Confirmed Last Taken Type acetaminophen 325 mg tablet 325 - 650 mg PO Q4H PRN Pain 09/30/20 12/21/21 09/30/20 History (Tylenol) hydrochlorothiazide 25 mg tablet 25 mg PO DAILY@0500 #90 tabs 07/15/21 12/21/21 Unknown Rx omeprazole 20 mg capsule,delayed See Rx Instructions .Route 08/17/21 12/21/21 Unknown Rx release .COMPLEX #30 caps aripiprazole 5 mg tablet (Abilify) 5 mg PO .morning #30 tabs 09/20/21 12/21/21 Unknown Rx lamotrigine 200 mg tablet 200 mg PO .5 pm #30 tabs 09/20/21 12/21/21 Unknown Rx (Lamictal) trazodone 50 mg tablet 150 mg PO DIRECTED #90 tabs 09/20/21 12/21/21 Unknown Rx vortioxetine 20 mg tablet 20 mg PO QAM #30 tabs 09/20/21 12/21/21 Unknown Rx (Trintellix) cyclobenzaprine 5 mg tablet 5 mg PO Q8H 7 days #21 tabs 09/30/21 12/21/21 Unknown Rx phentermine 37.5 mg tablet 37.5 mg PO DAILY #30 tabs 10/13/21 12/21/21 11/19/21 Rx Bone Growth Stimulator E0748 #1 ea 11/01/21 12/20/21 Unknown Rx cyclobenzaprine 10 mg tablet 10 mg PO TID PRN muscle spasm #20 22 12/21/21 Unknown Rx tabs alprazolam 0.5 mg tablet (Xanax) 0.5 mg PO BID PRN anxiety #60 tabs 12/10/21 12/21/21 Unknown Rx Allergies Allergy/AdvReac Type Severity Reaction Status Date / Time codeine Allergy Unknown Unknown Verified 12/20/21 14:41 meperidine [From Demerol] Allergy Unknown Unknown Verified 12/20/21 14:41 Penicillins Allergy Unknown Unknown Verified 12/20/21 14:41 prochlorperazine Allergy Unknown Unknown Verified 12/20/21 14:41 [From Compazine] [facility] Anesthesia Medical History Alcohol dependence in sustained full remission Bipolar II disorder Generalized anxiety disorder Nicotine dependence, cigarettes, uncomplicated Non morbid obesity Psychiatric care Solar aging of skin Social History Smoking and tobacco status: current every day smoker cigarettes Quit status (tobacco): has tried quititng History of recent travel: No Data Anesthesia : 12/21/21 10:20 12/21/21 10:20 Short CBC 12/21/21 Range/Units 10:20 WBC 14.1 H (4.0-10.0) 10^3/uL Hgb 13.7 (11.5-15.3) g/dL Hct 39.1 (37.0-47.0) % MCV 91.6 (81-99) fl Plt Count 712 H (130-400) 10^3/cmm Neut % (Auto) 79.0 % Neut # (Auto) 11.16 H (1.8-7.7) 10^3/uL Cardiac Studies: No Data to Display
[2021-12-21 11:55] LABS: Blood Urea Nitrogen 11 mg/dL (8-23); Carbon Dioxide 23 mmol/L (22-29); Creatinine Clr Calc Pharmacy 64.3707
[2021-12-21 12:08] LABS: Anion Gap 21.2 (5-19); Calcium 9.7 mg/dL (8.5-10.5); Chloride 86 mmol/L (98-107); Glucose 121 mg/dL (65-115); Osmolality Calculated 265 mOsm/kg (285-295); Potassium 3.2 mmol/L (3.5-5.1); Sodium 127 mmol/L (136-145)
--- NOTE | 2021-12-21 14:25 | PC.NURSE ---
Dr. Portillo notified of patient potassium level 3.2.
[2021-12-22] VITALS (35 sets, daily range): BP systolic 104–168; BP diastolic 61–91; PULSE 69–86; RESP 12–27; TEMP 36.2–36.6; O2SAT 63–99; BMI 24.9
[2021-12-22] MEDS: sodium chloride 0.9% 1,000 ML 30 ML IV (10:25)
--- NOTE | 2021-12-22 11:46 | P.ANESUD_ITS ---
Pre-Anesthetic Update Pre-Anesthetic Assessment: Date of Surgery/Procedure: 12/22/21 Preop Pita gnosis: Spondylolisthesis L4-5, Herniated nucleus pulposus L3-4, Proposed Procedure: Operation Date: 12/22/21 11:20 Proposed Procedures p Spinal Fusion L3-pelvis [id number](Not Applicable) - Adrien Lima Pily, DO s Posterior Lumbar Interbody Fusion L4/5 L5/S1 SI JOINT FUSION M43.16(Not Applicable) - Adrien Lima Pily, DO Any changes to Pre-Anesthetic Assessment?: No Last Intake: Intake Last Liquid Date 12/21/21 Last Liquid Time 23:45 Last Solid Date 12/21/21 Last Solid Time 08:30 Labs Last 48hrs: Short CBC 12/21/21 Range/Units 10:20 WBC 14.1 H (4.0-10.0) 10^3/ uL Hgb 13.7 (11.5-15.3) g/dL Hct 39.1 (37.0-47.0) % MCV 91.6 (81-99) fl Plt Count 712 H (130-400) 10^3/c mm Neut % (Auto) 79.0 % Neut # (Auto) 11.16 H (1.8-7.7) 10^3/u L BMP 12/21/21 10:20 Sodium 127 L Potassium 3.2 L Chloride 86 L Carbon Dioxide 23 BUN 11 Creatinine 0.6 Glucose 121 H Calcium 9.7 Vitals: Temperature 97.3 F L 12/22/21 09:56 Temperature Source Temporal Artery S can 12/22/21 09:56 Pulse Rate 86 12/22/21 09:56 Respiratory Rate 18 12/22/21 09:56 Blood Pressure 138/73 12/22/21 09:56 Blood Pressure Meghan n 94 12/22/21 09:56 Pulse Oximetry 94 12/22/21 09:56 Oxygen Delivery Me thod 12/22/21 10:04 Exam: Pre-Anes Outpt Exam: alert, oriented x 3, clear to auscultation bilaterally and regular rate & rhythm Cardiac Studies: No Data to Display
--- NOTE | 2021-12-22 11:55 | P.HP_ITS ---
Providers/Chief Complaint Primary Care Provider: Sven Gallardo MD Chief Complaint: PSF AND PLIF History of Present Illness Rola Morton is a 66 year old female Patient states that the pain is sharp and throbbing with 50% pain in her low back 50% pain in her right leg. The pain runs from the lumbar into the right buttocks and groin as well as into the lower right leg and knee. Patient states she had two injections with pain management without much relieve the pain.? She is failed to improve with conservative treatment involves physical therapy, pain clinic injections and conservative management. Review of Systems Const: Denies: fever(s) ENMT: Denies: throat pain, ear or mastoid pain, nasal discharge, nasal conge stion or sinus pain Card: Denies: chest pain Resp: Denies: dyspnea or wheezing GI: Denies: abdominal pain, nausea, vomiting or diarrhea Musc: Reports: back pain Skin/Breast: Denies: rash Neuro: Denies: headache(s) Psych: Denies: difficulty concentrating Medications/Allergies Home Medications Medication Instructions Recorded Confirmed Last Taken Type acetaminophen 325 mg tablet 325 - 650 mg PO Q4H PRN Pain 09/30/20 12/22/21 12/21/21 10:00 History (Tylenol) hydrochlorothiazide 25 mg tablet 25 mg PO DAILY@0500 #90 tabs 07/15/21 12/22/21 12/21/21 07:00 Rx omeprazole 20 mg capsule,delayed See Rx Instructions .Route 08/17/21 12/22/21 12/22/21 09:00 Rx release .COMPLEX #30 caps aripiprazole 5 mg tablet (Abilify) 5 mg PO .morning #30 tabs 09/20/21 12/22/21 12/21/21 07:00 Rx lamotrigine 200 mg tablet 200 mg PO .5 pm #30 tabs 09/20/21 12/22/21 12/21/21 22:00 Rx (Lamictal) trazodone 50 mg tablet 150 mg PO DIRECTED #90 tabs 09/20/21 12/22/21 12/21/21 23:00 Rx vortioxetine 20 mg tablet 20 mg PO QAM #30 tabs 09/20/21 12/22/21 12/21/21 09:00 Rx (Trintellix) phentermine 37.5 mg tablet 37.5 mg PO DAILY #30 tabs 10/13/21 12/21/21 11/19/21 Rx Bone Growth Stimulator E0748 #1 ea 11/01/21 12/20/21 Unknown Rx alprazolam 0.5 mg tablet (Xanax) 0.5 mg PO BID PRN anxiety #60 tabs 12/10/21 12/22/21 12/20/21 Rx Allergies Allergy/AdvReac Type Severity Reaction Status Date / Time codeine Allergy Unknown Unknown Verified 12/22/21 09:57 meperidine [From Demerol] Allergy Unknown Unknown Verified 12/22/21 09:57 Penicillins Allergy Unknown Unknown Verified 12/22/21 09:57 prochlorperazine Allergy Unknown Unknown Verified 12/22/21 09:57 [From Compazine] PFSH Acute PFSH: Medical History Alcohol dependence in sustained full remission Bipolar II disorder Generalized anxiety disorder Nicotine dependence, cigarettes, uncomplicated Non morbid obesity Psychiatric care Solar aging of skin Social History Smoking and tobacco status: current every day smoker cigarettes Quit status (tobacco): has tried quititng History of recent travel: No Vitals/I&O/Wt Last Vital Signs Temp 97.3 F L 12/22/21 09:56 Pulse 86 12/22/21 09:56 Resp 18 12/22/21 09:56 BP 138/73 12/22/21 09:56 Pulse Ox 94 12/22/21 09:56 O2 Del Method 12/22/21 10:04 Weight last 48 hrs Weight 144 lb Physical Exam Narrative: CONSTITUTIONAL: The patient is a normal appearing [] in no apparent distress. GENERAL: Patient in no acute distress. CARDIAC: Regular rate and rhythm. CHEST: Normal inspiratory effort, normal respiratory rate. ABDOMEN: Soft and nontender. SKIN: Clear, warm and intact. NEURO?PSYCH: The patient is alert and oriented to person, place and time. Sensorv /SILT Motor StrengthShoulder abduction C5 5/5Wrist extension C6 5/5Elbow extension C7 5/5Hand Naval Aircrewman Operator C8 5/5Finger abduction T15/5 Radial/ Ulnar/ Median n intact LowerSensory (SILT)Motor StrengthHin flexion L2/3Ant/inner thigh 5/5Hip adduction L2/3 5/5Knee extension L4 Lat thigh, 5/5Toe dorsiflexion L5 5/5Ankle dorsiflexion L5/ [id number] flexion S1 5/5 DTRBleeps 2+Triceps 2+Brachioradialis 2+Patellar 2+Achilles 2+ MUSCULOSKELETAL: [] UPPEREXTREMITIES: The patient had full active ROM in fingers, wrist, elbow, and shoulder. The patient demonstrated ability to fully flex /extend/abduct/adduct fingers, make ok sign, cross 2nd/3rd digits, extend 1st digit fully.. Radial pulse 2+, CR<2 seconds. LOWER EXTREMITIES: Pt has full, active ROM of toes, ankle, knee, and hip. Patrice salis pedis/posterior tibialis pulses 2+, CR<2 seconds. SPINE: Skin warm, dry, intact. Data : 12/21/21 10:20 12/21/21 10:20 A&P Assessment and plan (1) Spondylolisthesis at L4-L5 level: L3 to pelvis fusion with decompression Status: Acute Attestations Medical Necessity Statement*: failed conservative tx Coding Level of Care Code Acute Other Sports Official for [facility] Fwd Diagnoses Spondylolisthesis at L4-L5 level M43.16
--- NOTE | 2021-12-22 13:10 | ECG_ITS ---
[facility] Test Date: 2021-12-22 Pat Name: Rola Morton Department: Room: Gender: Female Associate Professor Of Theology: : 1955 Requested By: Veronique Patel Order Number: [id number] German MD: Judi Ulloa M.D. Measurements Intervals [place] Rate: 76 P: 77 AK: 174 QRS: 6 QRSD: 110 T: 37 QT: 444 QTc: 500 Interpretive Statements SINUS RHYTHM ST ELEVATION, CONSIDER INFERIOR INJURY [MARKED ST ELEVATION W/O NORMALLY INFLECTED T-WAVE IN II/aVF] ACUTE CO INTERPRETATION BASED ON A DEFAULT AGE OF 40 YEARS Compared to ECG 11/08/2021 10:21:22 ST (T wave) deviation now present Myocardial infarct finding now present Electronically Signed On 12-23-2021 18:46:54 CDT by Judi Ulloa M.D. [email or web address] [email or web address].[email or web address]/store/[id number] f
--- NOTE | 2021-12-22 13:39 | ECG_ITS ---
[facility] Test Date: 2021-12-22 Pat Name: Rola Morton Department: Room: Gender: Female C Engineer: : 1955 Requested By: Adrien Lima Order Number: [id number] German MD: Judi Ulloa M.D. Measurements Intervals [place] Rate: 76 P: 81 NE: 189 QRS: -3 QRSD: 110 T: 61 QT: 441 QTc: 499 Interpretive Statements SINUS RHYTHM PROLONGED QT INTERVAL Compared to ECG 12/22/2021 13:14:53 Prolonged QT interval now present ST (T wave) deviation no longer present Myocardial infarct finding no longer present Electronically Signed On 12-23-2021 18:46:43 CDT by Judi Ulloa M.D. [id number] f
--- NOTE | 2021-12-22 13:56 | XACV_ITS ---
Ht: 163 cm Wt: 66 kg BSA: 1.73 m2 Gender: Female : 1955 Any Known Allergies: Other Exam Priority: Routine Procedure(s): Procedure Description: Diagnostic procedure Procedure Description: Coronary Angiography Procedure Description: Left heart cath Procedure Description: LV gram Diagnostic Cath Status: Emergency Diagnostic Findings * No significant disease noted in the Left Main, Left Anterior Descending, Right, or Circumflex coronary arteries. * INDICATION: 66 year old female with no significant prior to cardiac history was planned for L3 to pelvis fusion with decompression. After anesthesia was administered, patient went into ventricular tachycardia that was sustained. Post conversion back to sinus rhythm showed borderline ST elevations in inferior leads. Cardiac Plywood Stock Grader was activated. * Coronary angiography shows right dominance. Conclusions 1. No significant disease noted in the Left Main, Left Anterior Descending, Right, or Circumflex coronary arteries. 2. Mild left ventricular systolic dysfunction. Ejection fraction of 45%. Recommendations * Aggressive risk factor modification. * Outpatient cardiology follow up in 4 weeks. Interventional RX Recommendation: medical therapy and/or counseling Diagnostic RX Recommendation: medical therapy and/or counseling Anticoagulation: Heparin Ventriculography Ejection Fraction: 45.0 % Pressures Phase:Rest AO : 130 / 71 ( 98 ) @ 3:25:00 PM 131 / 69 ( 98 ) @ 3:25:00 PM LV : 131 / 2 / 27 @ 3:24:00 PM 136 / 2 / 27 @ 3:24:00 PM 140 / 3 / 30 @ 3:25:00 PM 138 / 3 / 30 @ 3:25:00 PM Valves Phase:DefaultPhase AV : 7.0 @ 2:30:50 PM AV Mean Gradient: 8.0 @ 2:30:50 PM Clinical Evaluation EBL: 5mL-10mL Procedural Details Pre-Procedure Time Out. Identified patient by full name and date of as verbalized by the patient/guarantor. Does the consent match the physician's order: N/A Emergent. Accurate & Complete Informed Consent: N/A Emergent. Inpatient/Outpatient History & Physical on Chart: N/A Emergent. If H&P is completed, is and addenduem needed: N/A Emergent; If yes, is the addendum complete: N/A Emergent. Visualize and Verify Site with Patient/Guarantor: N/A. Relevant Radiology Images available: N/A Emergent. Pre-op teaching completed and patient verbalized understanding. The risks, benefits, and alternatives of sedation and/or procedure were discussed by physician. The patient agrees to continue. Procedure started. [facility] Clinical Fraility Score: 4: Vulnerable. Plywood Stock Grader Indications: ACS <= 24 hours. Chest Pain Symptom Assessment: Typical Angina Symptoms. Cardiovascular Instability: Yes, if yes, Persistant Ischemic Symptoms. Correct patient, site and procedure confirmed by cath team. Current diagnosis: STEMI. PERRLA. Strong, equal hand division chair bilaterally. Lungs clear x 5 lobes. IV Site on Arrival: 18 gauge in the right anticubital. Oxygen started at 2liters/min via nasal canula. right groin was prepped with chloroprep then draped in the usual sterile fashion. right radial was prepped with chloroprep then draped in the usual sterile fashion. Current Diagnosis : STEMI. Baseline sample Acquired. HR: 80 BPM. IV Fluids: 0.9% NaCl at KVO. 600 mL infused prior to medical laboratory technicians. January Rocha RT(R) was relieved by Osvaldo Buenrostro RN, MAP MOUNTER as monitoring person. Anesthesi here providing sedation during the case. Physician arrived. Physician scrubbed in. Immediate Pre-Procedure Time Out. Correct Patient: Yes; Correct Procedure: Yes; Correct Site: Yes; Correct Patient Position: Yes; Correct Supplies: Yes; Dried Flammable Prep: Yes; Blood Products Available: N/A;. Lidocaine 1% infiltrated to the right groin. Arterial access obtained with micropuncture set. A 5 somali TIG catheter in over wire. Multiple views taken of left coronary artery. Catheter redirected to the RCA. Multiple views taken of right coronary artery. Catheter removed over the wire. A 5 somali Angled Pig catheter in over wire. EDP Sample taken: LV 131/2,27; HR: 78 BPM; SpO2: 99%. LV gram performed in NG @ 10 mL/second for a total of 30 mL. Patient EF: Abnormal. EDP Sample taken: LV 140/3,30; HR: 78 BPM; SpO2: 99%. Pullback taken: LV 138/3,30; AO 130/71(98); Mean: 8mmHg, Peak to Peak: 7mmHg, SEP: 19sec/min; HR: 78 BPM; SpO2: 100%. Catheter removed over the wire. Physician review of films. Physician scrubbed out. A TR Band was successful obtaining hemostatsis at the Right Femoral artery insertion site. TR band placed. Hemostasis obtained. Post Procedure: Pulses reassessed and unchanged. PERRLA. Strong, equal hand division chair bilaterally. No VTE prophylaxis required. Medication waste Lido 2 ml Nitro 49.8 mg Heparin 1000 units. Total IV fluids: 500 mL. Fluoro: 2:05. Contrast type used: Omnipaque 300 mg/mL, 150 mL bottle. [id number]. Post-op diagnosis: Mild CAD; Mildly depressed EF. Complications: NONE. Estimated blood loss: 5mL-10mL. Responsiveness - Normal response to verbal stimuli; alert and oriented, PERRLA. Airway - Unaffected, no intervention required; spontaneous ventilation. Circulation: W/N/L, pulses unchanged. Nausea/Vomiting: No. Procedure completed. Patient transferred by bed to ICU. Access Site Site: Right Femoral artery Sheath Size: 6 Fr Hemostasis Method: TR Band Hemostasis Success: Successful Procedure Medications Start: 2:20 PM Stop: 2:20 PM Medication: Nitrogylcerin Amount: 200 mcg Route: I.A. Start: 2:20 PM Stop: 2:20 PM Medication: Heparin Amount: 5000 units Route: I.V. I, the attending physician, have reviewed and verified all procedure medications. Yes, all medications given per verbal order Report Signatures Finalized by Jenaro Oseguera MD on 01/01/2022 09:27 PM
--- NOTE | 2021-12-22 14:13 | P.HP_ITS ---
Same Day Surgery H&P Indication for Procedure/HPI DATE OF PROCEDURE: December 22, 2021 PREOP DIAGNOSIS: Spondylolisthesis L4-5, Herniated nucleus pulposus L3-4, PLANNED PROCEDURE: Operation Date: 12/22/21 11:20 Proposed Procedures p Spinal Fusion L3-pelvis [id number](Not Applicable) - Adrien Nascimento DO s Posterior Lumbar Interbody Fusion L4/5 L5/S1 SI JOINT FUSION M43.16(Not Applicable) - Adrien Nascimento DO Medications/Allergies* Home Medications Medication Instructions Recorded Confirmed Type acetaminophen 325 mg tablet 325 - 650 mg PO Q4H PRN Pain 09/30/20 12/22/21 History (Tylenol) Allergies/Adverse Reactions Allergy/AdvReac Type Severity Reaction Status Date / Time codeine Allergy Unknown Unknown Verified 12/22/21 09:57 meperidine [From Demerol] Allergy Unknown Unknown Verified 12/22/21 09:57 Penicillins Allergy Unknown Unknown Verified 12/22/21 09:57 prochlorperazine Allergy Unknown Unknown Verified 12/22/21 09:57 [From Compazine] Current Medications: Generic Name Dose Route Start Last Admin Trade Name Freq PRN Reason Stop Dose Admin Sodium Chloride 1,000 mls @ 30 mls/hr 12/22/21 10:00 12/22/21 10:25 Sodium Chloride 0.9% IV 12/23/21 09:59 30 mls/hr .Q24H BRITNEY Administration Pertinent History/Comorbid Conditions* Medical History (Updated 10/05/21 @ 17:27 by Jagdish Browne PA-C) Alcohol dependence in sustained full remission Bipolar II disorder Generalized anxiety disorder Nicotine dependence, cigarettes, uncomplicated Non morbid obesity Psychiatric care Solar aging of skin Social History Smoking and tobacco status: current every day smoker cigarettes Quit status (tobacco): has tried quititng History of recent travel: No Coding Level of Care Code Acute 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
--- NOTE | 2021-12-22 14:28 | P.CONIM_ITS ---
Providers/Reason For Consult Consulting Physician/Specialty*: Jenaro Oseguera MD/Interventional Cardiology Reason for Consult*: Ventricular tachycardia Requesting Physician: Dr Bob Attending Physician: Adrien Nascimento DO Primary Care Provider: Sven Gallardo MD History of Present Illness History of Present Illness Rola Morton is a 66 year old female with no significant prior to cardiac history was planned for L3 to pelvis fusion with decompression. After anesthesia was administered, patient went into ventricular tachycardia that was sustained. Post conversion back to sinus rhythm showed borderline ST elevations in inferior leads. Cardiac Manager Of Loss Prevention Operations was activated. Patient was brought to the cardiac Manager Of Loss Prevention Operations. Coronary angiogram revealed nonobstructive CAD. Review of Systems Const: Denies: fever(s) ENMT: Denies: throat pain, ear or mastoid pain, nasal discharge, nasal congestion or sinus pain Card: Denies: chest pain Resp: Denies: dyspnea or wheezing GI: Denies: abdominal pain, nausea, vomiting or diarrhea Musc: Reports: back pain Skin/Breast: Denies: rash Neuro: Denies: headache(s) Psych: Denies: difficulty concentrating Medications/Allergies Home Medications Medication Instructions Recorded Confirmed Last Taken Type acetaminophen 325 mg tablet 325 - 650 mg PO Q4H PRN Pain 09/30/20 12/22/21 12/21/21 10:00 History (Tylenol) hydrochlorothiazide 25 mg tablet 25 mg PO DAILY@0500 #90 tabs 07/15/21 12/22/21 12/21/21 07:00 Rx omeprazole 20 mg capsule,delayed See Rx Instructions .Route 08/17/21 12/22/21 12/22/21 09:00 Rx release .COMPLEX #30 caps aripiprazole 5 mg tablet (Abilify) 5 mg PO .morning #30 tabs 09/20/21 12/22/21 12/21/21 07:00 Rx lamotrigine 200 mg tablet 200 mg PO .5 pm #30 tabs 09/20/21 12/22/21 12/21/21 22:00 Rx (Lamictal) trazodone 50 mg tablet 150 mg PO DIRECTED #90 tabs 09/20/21 12/22/21 12/21/21 23:00 Rx vortioxetine 20 mg tablet 20 mg PO QAM #30 tabs 09/20/21 12/22/2112/21/22 09:00 Rx (Trintellix) phentermine 37.5 mg tablet 37.5 mg PO DAILY #30 tabs 10/13/21 12/21/21 11/19/21 Rx Bone Growth Stimulator E0748 #1 ea 11/01/21 12/20/21 Unknown Rx alprazolam 0.5 mg tablet (Xanax) 0.5 mg PO BID PRN anxiety #60 tabs 12/10/21 12/22/21 12/20/21 Rx Allergies Allergy/AdvReac Type Severity Reaction Status Date / Time codeine Allergy Unknown Unknown Verified 12/22/21 09:57 meperidine [From Demerol] Allergy Unknown Unknown Verified 12/22/21 09:57 Penicillins Allergy Unknown Unknown Verified 12/22/21 09:57 prochlorperazine Allergy Unknown Unknown Verified 12/22/21 09:57 [From Compazine] Current Medications Generic Name Dose Route Start Last Admin Trade Name Freq PRN Reason Stop Dose Admin Sodium Chloride 1,000 mls @ 30 mls/hr 12/22/21 10:00 12/22/21 10:25 Sodium Chloride 0.9% IV 12/23/21 09:59 30 mls/hr .Q24H BRITNEY Administration PFSH Acute PFSH: Medical History Alcohol dependence in sustained full remission Bipolar II disorder Generalized anxiety disorder Nicotine dependence, cigarettes, uncomplicated Non morbid obesity Psychiatric care Solar aging of skin Social History Smoking and tobacco status: current every day smoker cigarettes Quit status (tobacco): has tried quititng History of recent travel: No Vitals/I&O/Wt Last Vital Signs Temp 97.2 F L 12/22/21 13:52 Pulse 82 12/22/21 13:52 Resp 18 12/22/21 13:52 BP 138/73 12/22/21 09:56 Pulse Ox 94 12/22/21 09:56 O2 Del Method 12/22/21 10:04 O2 Flow Rate 6 12/22/21 13:52 12/21/21 12/22/21 12/22/21 22:59 06:59 14:59 Intake Total 10 / 10 Output Total 0 / 0 Balance 10 / 10 Weight last 48 hrs Weight 144 lb Physical Exam Narrative: GENERAL: Patient is drowsy NECK: No jugular vein distension. [] HEENT: No cyanosis. No icterus. No pallor. [] HEART: Regular S1 and S2. No murmur, rub or gallop. [] LUNGS: Clear to auscultate bilaterally. [] ABDOMEN: Soft, nontender and nondistended. Positive bowel sounds. No guarding, rebound or tenderness. [] CENTRAL NERVOUS SYSTEM: Grossly nonfocal. [] EXTREMITIES: Lower extremities with no edema bilaterally. Pulses palpable in the lower extremities, both dorsalis pedis and posterior tibial. [] Data : 12/21/21 10:20 12/21/21 10:20 A&P Assessment and plan (1) Ventricular tachycardia: Status: Acute Plan Patient had ventricular tachycardia under general anesthesia. Post conversion EKG demonstrated borderline ST elevations in inferior leads. Coronary angiogram not demonstrating any significant CAD. Mildly decreased LV systolic function on LV gram Keep potassium more than 4, magnesium more than 2. Will obtain echocardiogram. Blood pressure control Thank you for involving us with care of this patient. We will continue to follow. 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
--- NOTE | 2021-12-22 14:29 | W.PM.OPSUD ---
Surgery/Procedure H&P Update DATE OF PROCEDURE: December 22, 2021 DATE H&P PERFORMED: 12/22/21 H&P UPDATE INFORMATION: I have reviewed H&P completed within last 30 days, I have examined patient prior to procedure and No changes to prior documentation PREOP DIAGNOSIS: Ventricular tachycardia PRIMARY INDICATION FOR PROCEDURE: Ventricular tachycardia PLANNED PROCEDURE: Left heart catheterization with possible percutaneous coronary intervention PATIENT REASSESSED PRIOR TO SEDATION, WITH NO CHANGE NOTED: Yes PHYSICAL EXAM: alert, oriented x 3, clear to auscultation bilaterally and regular rate & rhythm OTHER PERTINENT EXAM FINDINGS: Anesthesia team available for administration of sedation ADDITIONAL INFORMATION: Moderate sedation
--- NOTE | 2021-12-22 14:30 | PC.NURSE ---
AFTER INTUBATION PT BEGAN HAVING CHANGES IN RHYTHM. PT MAINTAINED PULSE. ANESTHESIOLOGIST AND MACHINE INSTALLER CALLED TO ROOM. 12 LEAD EKG ORDERED WELL BMP LABS. EKG WAS REVIEWED BY CARDIOLOGY. PHYSICIANS DECIDED IT WAS PTS BEST INTEREST TO CANCEL CASE. THIS RN AND PALLET REPAIRER PROCEEDED WITH WAKING PT AND TRANSFERED HER TO PACU.
[2021-12-22 15:21] LABS: Troponin T (5th) Once 13 ng/L (0-10)
[2021-12-22] MEDS: fentaNYL 50 mcg/mL INJ 2mL 12.5 MCG IVP (15:41)
[2021-12-22] MEDS: HYDROcodone-acetaminophen 5-325 mg Tablet PO ×2 (16:54→23:05)
[2021-12-22] MEDS: lamoTRIgine 100 mg Tablet 200 MG PO (16:55)
--- NOTE | 2021-12-22 17:58 | P.MISC_ITS ---
Miscellaneous Note Note: Called to OR. Patient had went into sustained VTACH (stable) and was in what appeared to be a bigeminal rhythm. She was acutely Hypertensive w/ systolics of 230s and diastolics over 100. Anesthesia had already been deepened for the BP and was coming down. 12 lead EKG was obtained intraoperatively and showed ST elevation. BMP and troponins were drawn. Contacted cardiologists (Laila and harmeet). Repeat EKG 20 minutes following first EKG still showed some elevation. Thus the patient was awoken and brought to laboratory apparatus glass blower. Mild CAD found and some reduced EF possible. Dr. Nascimento made the decision to postpone the case as well, before results of second EKG, for further cardiac evaluation before juliet paulie.
--- NOTE | 2021-12-22 19:30 | PC.NURSE ---
Pt. laying in bed, no complaints or needs expressed at this time. TR band in place to right radial cath site. Will continue to deflate and remove as ordered.
--- NOTE | 2021-12-22 19:37 | PC.NURSE ---
received patient form calibration laboratory technician stff at 1500. Patient is alert and oriented to person, place, time, and situation, but is lethargic. RR:14, HR: 74, BP: 158/69, Temp: 98. SPO2: 98%. Patient's family brought to bedside. Patient complains of pain to the right leg related to preexisting nerve issues which she was supposed to get surgery for today.
--- NOTE | 2021-12-22 19:38 | PC.NURSE ---
Patient reported urge to urinate, but unable to do so. Nurse bladder scanned patient and it shows 700mL of urine is retained. NUrse assisted patient with ambulation in room and helped her to a bedside commode. After ambulation, she was able to void. 400mL.
--- NOTE | 2021-12-22 19:40 | PC.NURSE ---
SHift Summary: uneventful shift. Patient came back form metallurgy laboratory technician, has been alert and oriented to person, place, time, and situation. Vitals iwthin normal limits. TR band in place, but only 3 mL of air remaining during shift change with no signs of bleeding. Hydrocodone for pain control, patient also reports a warm blanket to affected leg and brief ambulation helps with pain.
[2021-12-22 19:55] LABS: Blood Urea Nitrogen 9 mg/dL (8-23); Calcium 9.4 mg/dL (8.5-10.5); Carbon Dioxide 25 mmol/L (22-29); Glucose 113 mg/dL (65-115)
[2021-12-22 20:17] LABS: Anion Gap 19.2 (5-19); Chloride 91 mmol/L (98-107); Osmolality Calculated 273 mOsm/kg (285-295); Potassium 3.2 mmol/L (3.5-5.1); Sodium 132 mmol/L (136-145)
--- NOTE | 2021-12-22 21:00 | PC.NURSE ---
TR band removed from RIght radial cath site. Site is clean, clear, and intact. Gauze with tagaderm placed over site. No needs expressed at this time.
[2021-12-23] VITALS (12 sets, daily range): BP systolic 109–142; BP diastolic 69–95; PULSE 66–76; RESP 10–24; TEMP 36.6; O2SAT 92–97
[2021-12-23] MEDS: hydroCHLOROthiazide 25 mg Tablet PO (05:50)
[2021-12-23 06:55] LABS: Basophils % 0.5 %; Eosinophils # 0.2 10^3/uL (0.0-0.8); Eosinophils % 2.1 %; Hematocrit 37.2 % (37.0-47.0); Hemoglobin 12.6 g/dL (11.5-15.3); Lymphocytes # 2.5 10^3/uL (0.8-4.8); Lymphocytes % 32.5 %; Mean Corpuscular HGB Conc 33.9 g/dL (30.0-36.0); Mean Corpuscular Hemoglobin 31.7 pg (28.0-34.0); Mean Corpuscular Volume 93.7 fl (81-99); Monocytes # 0.6 10^3/uL (0.2-0.9); Monocytes % 7.9 %; Neutrophils % 54.9 %; Nucleated Red Blood Cells % 0 %; Platelet Count 703 10^3/cmm (130-400); Red Blood Count 3.97 10^6/uL (4.1-5.3); Red Cell Distribution Width 12.7 % (12.1-15.1); White Blood Count 7.6 10^3/uL (4.0-10.0)
[2021-12-23 07:09] LABS: Blood Urea Nitrogen 8 mg/dL (8-23); Calcium 9.5 mg/dL (8.5-10.5); Carbon Dioxide 26 mmol/L (22-29); Chloride 92 mmol/L (98-107); Glucose 120 mg/dL (65-115); Osmolality Calculated 272 mOsm/kg (285-295); Sodium 131 mmol/L (136-145)
[2021-12-23] MEDS: HYDROcodone-acetaminophen 5-325 mg Tablet PO ×2 (07:35→12:10)
--- NOTE | 2021-12-23 07:41 | PC.NURSE ---
C/O 02/21 pain to Right knee, PRN Landers administered per MAR
--- NOTE | 2021-12-23 07:53 | P.PN_ITS ---
Subjective Subjective: Patient resting comfortably. Complains of right leg pain and back pain. Denies any chest pain, shortness of breath. Vitals/I&O/Wt Last Vital Signs Temp 98 F 12/22/21 17:05 Pulse 68 12/23/21 06:00 Resp 17 12/22/21 17:10 BP 120/72 12/22/21 17:10 Pulse Ox 97 12/22/21 17:10 O2 Del Method 12/22/21 17:05 O2 Flow Rate 6 12/22/21 14:03 12/22/21 12/23/21 12/23/21 22:59 06:59 14:59 Output Total 400 / 400 300 / 700 Balance -400 / -390 -300 / -690 Weight last 48 hrs Weight 145 lb Weight 144 lb Physical Exam Narrative: She is alert orient x3 has a good general appearance normal mood and affect. Pain with palpation in her low back down the right lower extremity. Positive straight leg raise on the right. Skin is clear warm femoral cap refill dorsalis pedis posterior pulses are palpable calves are supple. HENMT: COMMON NORMALS: normocephalic HEAD & SCALP: normocephalic Resp: COMMON NORMALS: normal respiratory effort Cardio: COMMON NORMALS: regular rate and regular rhythm RATE: regular rate RHYTHM: regular rhythm GI: COMMON NORMALS: Soft to palpation and non-tender PALPATION: Yes Soft to palpation : COMMON NORMALS: Yes no CVA tenderness BLADDER/KIDNEY EXAM: Yes no CVA tenderness Back/Pelvis: COMMON NORMALS: no CVA tenderness Psych: COMMON NORMALS: mental status grossly normal and cooperative Data : 12/23/21 06:18 12/23/21 06:18 A&P Assessment and plan (1) DDD (degenerative disc disease), lumbosacral: With her arrhythmias preoperatively Dr. Nascimento made the decision to abort the surgery for cardiac work-up. This a.m. she is hypokalemic with a potassium of 3.0. She denies any chest pain shortness of breath. Discussed at length with her that this is the safest decision to make sure she is medically stable to proceed with anything operative on her back. We will await for medical clearance from the chicken raiser and the hospitalist team will proceed with rescheduling her for the lumbar procedure in the future. At this point will defer to the chicken raiser and hospitalist team and we will see her back in the office for reevaluation. Status: Acute (2) Spondylolisthesis at L4-L5 level: Status: Acute (3) Herniated nucleus pulposus, L3-4 right: Status: Acute Attestations Medical Necessity Statement*: defer to medical team Coding Level of Care Code Acute Correctional Probation Officer for g Fwd Diagnoses DDD (degenerative disc disease), lumbosacral M51.37 Spondylolisthesis at L4-L5 level M43.16 Herniated nucleus pulposus, L3-4 right M51.26
[2021-12-23] MEDS: ARIPiprazole 10 mg Tablet 5 MG PO (08:32)
--- NOTE | 2021-12-23 10:01 | P.PN_ITS ---
Subjective Subjective: Patient is stable. No complaints of chest pain. No more VT episodes Vitals/I&O/Wt Last Vital Signs Temp 98 F 12/22/21 17:05 Pulse 74 12/23/21 09:00 Resp 19 H 12/23/21 09:00 BP 125/87 12/23/21 09:00 Pulse Ox 92 12/23/21 09:00 O2 Del Method 12/22/21 17:05 O2 Flow Rate 6 12/22/21 14:03 12/22/21 12/23/21 12/23/21 22:59 06:59 14:59 Intake Total 250 / 250 Output Total 400 / 400 300 / 700 Balance -400 / -390 -300 / -690 250 / 250 Weight last 48 hrs Weight 145 lb Physical Exam Narrative: GENERAL: Patient is drowsy NECK: No jugular vein distension. [] HEENT: No cyanosis. No icterus. No pallor. [] HEART: Regular S1 and S2. No murmur, rub or gallop. [] LUNGS: Clear to auscultate bilaterally. [] ABDOMEN: Soft, nontender and nondistended. Positive bowel sounds. No guarding, rebound or tenderness. [] CENTRAL NERVOUS SYSTEM: Grossly nonfocal. [] EXTREMITIES: Lower extremities with no edema bilaterally. Pulses palpable in the lower extremities, both dorsalis pedis and posterior tibial. [] Data : 12/23/21 06:18 12/23/21 06:18 A&P Assessment and plan (1) Ventricular tachycardia: Status: Acute Plan Patient had ventricular tachycardia under general anesthesia. Post conversion EKG demonstrated borderline ST elevations in inferior leads. Coronary angiogram not demonstrating any significant CAD. Mildly decreased LV systolic function on LV gram Echocardiogram shows EF of 45 to 50%. Patient is hypokalemic. Getting replacement for potassium today. Will start Coreg 3.125 mg twice daily and KCl 10 mEq. Patient is stable to be discharged from cardiology standpoint. Please call with questions Attestations Medical Necessity Statement*: Care not expected to cross 2 midnights. Coding Level of Care Code Acute Community Health Counselor for Mauro Ariza Diagnoses Ventricular tachycardia I47.2
--- NOTE | 2021-12-23 12:49 | PM.DCS ---
Discharge Providers Date of Admission: 12/22/21 15:26 Date of Discharge: December 23, 2021 Attending Provider at Admission: Adrien Nascimento DO Attending Provider at Discharge: Adrien Nascimento DO Primary Care Provider: Sven Gallardo MD Diagnoses at Discharge Discharge Diagnosis (1) DDD (degenerative disc disease), lumbosacral: Status: Acute (2) Spondylolisthesis at L4-L5 level: Status: Acute (3) Herniated nucleus pulposus, L3-4 right: Status: Acute Reason for Visit Reason for Visit: PSF AND PLIF Hospital Course Hospital Course Patient surgery was canceled and she ended up getting a heart cath. Discharge Data Studies Completed and Pending Pending at discharge Category Date Time Status CLERICAL GRADER request for service Routine Exams 12/22/21 13:56 Taken CV. echo complete* [id number] Routine Ultrasound 12/22/21 20:18 Taken Laboratory Results WBC 7.6 10^3/uL (4.0-10.0) 12/23/21 06:18 RBC 3.97 10^6/uL (4.1-5.3) L 12/23/21 06:18 Hgb 12.6 g/dL (11.5-15.3) 12/23/21 06:18 Hct 37.2 % (37.0-47.0) 12/23/21 06:18 MCV 93.7 fl (81-99) 12/23/21 06:18 MCH 31.7 pg (28.0-34.0) 12/23/21 06:18 MCHC 33.9 g/dL (30.0-36.0) 12/23/21 06:18 RDW 12.7 % (12.1-15.1) 12/23/21 06:18 Plt Count 703 10^3/cmm (130-400) H 12/23/21 06:18 MPV 9.0 fL (7.4-10.4) 12/23/21 06:18 Neut % (Auto) 54.9 % 12/23/21 06:18 Lymph % (Auto) 32.5 % 12/23/21 06:18 [place] % (Auto) 7.9 % 12/23/21 06:18 Eos % (Auto) 2.1 % 12/23/21 06:18 Baso % (Auto) 0.5 % 12/23/21 06:18 Neut # (Auto) 4.20 10^3/uL (1.8-7.7) 12/23/21 06:18 Lymph # (Auto) 2.5 10^3/uL (0.8-4.8) 12/23/21 06:18 [place] # (Auto) 0.6 10^3/uL (0.2-0.9) 12/23/21 06:18 Eos # (Auto) 0.2 10^3/uL (0.0-0.8) 12/23/21 06:18 Baso # (Auto) 0.0 10^3/uL (0.0-0.1) 12/23/21 06:18 Nucleated RBC % (auto) 0 % 12/23/21 06:18 Nucleated RBCs # 0.0 /100WBC 12/23/21 06:18 Sodium 131 mmol/L (136-145) L 12/23/21 06:18 Potassium 3.0 mmol/L (3.5-5.1) L 12/23/21 06:18 Chloride 92 mmol/L (98-107) L 12/23/21 06:18 Carbon Dioxide 26 mmol/L (22-29) 12/23/21 06:18 Anion Gap 16.0 (5-19) 12/23/21 06:18 BUN 8 mg/dL (8-23) 12/23/21 06:18 Creatinine 0.6 mg/dL (0.5-0.9) 12/23/21 06:18 GFR Calculation 100.0 mL/min (90-130) 12/23/21 06:18 Glucose 120 mg/dL (65-115) H 12/23/21 06:18 Calculated Osmolality 272 mOsm/kg (285-295) L 12/23/21 06:18 Calcium 9.5 mg/dL (8.5-10.5) 12/23/21 06:18 Troponin T Gen 5 ng/L 13 ng/L (0-10) H 12/22/21 13:14 Blood Type O Positive 12/22/21 10:15 Rho(D) Type Positive 12/22/21 10:15 Antibody Screen Negative 12/22/21 10:15 Vitals Last Vital Signs Temp 98 F 12/22/21 17:05 Pulse 74 12/23/21 09:00 Resp 19 H 12/23/21 09:00 BP 125/87 12/23/21 09:00 Pulse Ox 92 12/23/21 09:00 O2 Del Method 12/22/21 17:05 O2 Flow Rate 6 12/22/21 14:03 Discharge Plan Discharge Patient Disposition: Home Condition: Stable Prescriptions: Continued Trintellix 20 mg tablet 20 mg PO QAM Qty: 30 6RF alprazolam [Xanax] 0.5 mg tablet 0.5 mg PO BID PRN (Reason: anxiety) Qty: 60 3RF hydrochlorothiazide 25 mg tablet 25 mg PO DAILY@0500 Qty: 90 3RF (DME) Bone Growth Stimulator E0748 See Rx Instructions .Route .MEDSUPPLY Qty: 1 0RF Rx Instructions: As directed Subvenite 200 mg tablet 200 mg PO DAILY@17 trazodone 50 mg tablet 150 mg PO BEDTIME acetaminophen 500 mg Tablet 1,000 mg PO Q6H PRN (Reason: Pain) aripiprazole 5 mg tablet 5 mg PO QAM magnesium oxide 400 mg magnesium Tablet 400 mg PO QAM omeprazole 20 mg capsule,delayed release(DR/EC) 20 mg PO QAM Discharge Orders: Discharge Order (Routine); Ordered 12/23/21 Ordered By: Adrien Nascimento Discharge Diet: Advance as tolerated Discharge Activity: Limit activity as instructed Patient Instructions: Opioid Safety Activity Restrictions/Additional Instructions: follow up at spine clinic in 2 weeks Discharge Attestations Time Spent in Discharge Care*: less than 30 min Quality Metrics Clinical Quality Measures [ No reported AMI, CVA or VTE this stay] Coding Level of Care Code Acute Chg FW DC note Diagnoses DDD (degenerative disc disease), lumbosacral M51.37 Spondylolisthesis at L4-L5 level M43.16 Herniated nucleus pulposus, L3-4 right M51.26
--- NOTE | 2021-12-23 12:54 | PC.NURSE ---
Discharge order Patient notified this nurse Dr. Oseguera informed her she is cleared on cardiology and can d/c once Dr. Nascimento approves. this nurse called Dr. Oseguera who informed this nurse patient can d/c after receiving po 40 mEq lasix x1 dose for low k on labs. dr nascimento approved d/c and put in d/c orders
[2021-12-23] MEDS: potassium chloride ER 20 mEq Tablet 40 MEQ PO (13:00)
--- NOTE | 2021-12-23 16:04 | PC.NURSE ---
All D/C instructions educated to patient and , no questions or concerns expressed. patient signed d/c form
--- NOTE | 2021-12-23 16:19 | PC.NURSE ---
Patient JAVAD at this time, transported by significant other
--- NOTE | 2021-12-23 20:18 | USCV_ITS ---
Rola Morton Age: 66 Gender: F : 1955 Exam Date: 12/23/2021 02:41 Ordering Phys: Jenaro Oseguera M.D ([email or web address]) Technologist: BALWINDER Exam Location: [facility] – [place] Indication: BP: 120 / 72 HR: 81 Rhythm: Sinus Technical Quality: Adequate MEASUREMENTS (Male / Female) Normal Values 2D ECHO LV Diastolic Diameter PLAX 3.9 cm 4.2 - 5.9 / 3.9 - 5.3 cm LV Systolic Diameter PLAX 2.6 cm IVS Diastolic Thickness 1.5 cm 0.6 - 1.0 / 0.6 - 0.9 cm IVS Systolic Thickness 1.5 cm LVPW Diastolic Thickness 1.2 cm 0.6 - 1.0 / 0.6 - 0.9 cm LVPW Systolic Thickness 1.3 cm LVOT Diameter 1.8 cm LV Ejection Fraction 2D Teich 59.9 % LV Ejection Fraction MOD 2C 69.7 % LV Ejection Fraction 2C AL 69.0 % LA Diameter 3.0 cm LA Width 3.0 cm LA Height 4.9 cm RA Width 3.2 cm Aorta at Sinotubular Diameter 3.1 cm IVC Diameter 1.6 cm M-MODE Aortic Annulus Diameter 3.1 cm LA Ao Ratio MM 1.0 MV E Point Septal Separation 0.3 cm DOPPLER AV Peak Velocity 116.0 cm/s LVOT Peak Velocity 104.0 cm/s AV Area Cont Eq vti 2.3 cm squared AV Area Cont Eq pk 2.4 cm squared MV Area PHT 4.1 cm squared Mitral E to A Ratio 1.7 MV E' Velocity 50.5 cm/s Mitral E to MV E' Ratio 10.4 Mitral E to LV E' Lateral Ratio 10.6 Mitral E to LV E' Septal Ratio 10.1 TR Peak Velocity 211.0 cm/s TR Peak Gradient 17.8 mmHg TV Peak E Velocity 58.0 cm/s Right Atrial Pressure 5.0 mmHg Pulmonary Artery Systolic Pressu 22.8 mmHg PV Peak Velocity 91.0 cm/s RV Acceleration Time 0.1 s RV Ejection Time 0.4 s RV AcT/ET 0.3 FINDINGS Left Ventricle Normal left ventricular size. LV systolic function is mildly reduced with EF of 45 to 50%. Borderline global hypokinesis. Right Ventricle The right ventricle is normal in size and function. Right Atrium The right atrium is normal in size. Left Atrium The left atrium is normal in size. Mitral Valve Structurally normal mitral valve without significant stenosis or prolapse. There is no mitral regurgitation. Aortic Valve Structurally normal aortic valve without significant sclerosis or stenosis. There is no aortic regurgitation. Tricuspid Valve Mild tricuspid regurgitation. Pulmonary artery systolic pressure is normal. Pulmonic Valve Trace pulmonic regurgitation Pericardium Trivial pericardial effusion Aorta Normal ascending aorta dimension. IVC CONCLUSIONS LV systolic function is borderline reduced with EF of 45 to 50%. Borderline global hypokinesis. Mild tricuspid regurgitation. Trace pulmonic regurgitation. Trivial pericardial effusion. No comparison studies present Jenaro Oseguera MD (Electronically Signed) Final Date: 23 December 2021 18:41 S
== END 2021-12-23 16:21 | disposition home or self-care (01) | DRG 552 ==
LOC: ICU 15:29
PROVIDERS: Anesthesiology; Internal Medicine; Admitting Provider Orthopaedic Surgery; PCP Family Medicine; Visit Provider Orthopaedic Surgery
PROC: B2111ZZ Fluoroscopy of Multiple Coronary Arteries using Low Osmolar Contrast (ICD-10-PCS; principal; 2021-12-22 14:00)
DX: M43.16 Spondylolisthesis, lumbar region (principal); I47.2 Ventricular tachycardia; E87.1 Hypo-osmolality and hyponatremia; M51.37 Other intervertebral disc degeneration, lumbosacral region; M51.26 Other intervertebral disc displacement, lumbar region; I25.10 Atherosclerotic heart disease of native coronary artery without angina pectoris; E87.6 Hypokalemia; I10 Essential (primary) hypertension; F17.210 Nicotine dependence, cigarettes, uncomplicated
CPT/HCPCS: 36415; 80048; 84484; 85025; 86850; 86900; 93005; 93306; 93452; 93458; 96360; C1769; C1887; C1894; J1100; J1644; J2250; J2405; J2704; J3010; J3490; J7030; Q9967

== ENCOUNTER → 2021-12-31 09:49 | Outpatient (BNVA) | payer MEDICARE, MEDICAID, SELFPAY | PROVIDERS: PCP Family Medicine; Visit Provider Nurse Practitioner Family | DX: I25.10 Atherosclerotic heart disease of native coronary artery without angina pectoris (principal); F17.210 Nicotine dependence, cigarettes, uncomplicated | CPT/HCPCS: 36415; 80048; 99213; 99214 ==

== ENCOUNTER → 2022-01-06 13:51 | Outpatient (BNVA) | payer MEDICARE, MEDICAID, SELFPAY | PROVIDERS: PCP Family Medicine; Visit Provider Orthopaedic Surgery | DX: M54.50 Low back pain, unspecified (principal) | CPT/HCPCS: 99214 ==

== ENCOUNTER 2022-02-04 13:43 | Inpatient (IN) | payer MEDICARE, MEDICAID, SELFPAY ==
[2022-01-31 08:24] VITALS: BMI 25.4
--- NOTE | 2022-01-31 08:50 | ANES.PREANE2 ---
Pre-Anesthetic Assessment Height/Weight: Height 1.63 m Weight 67.132 kg Preop Diagnosis: Ventricular tachycardia Operation Date: 02/04/22 07:00 Proposed Procedures p L3-PELVIS PSF W PLIF @ L4/5 L5/S1 SI JOINT FUSION [id number](Not Applicable) - Adrien Nascimento, DO Familial anesthetic complications: Vtach after induction (microbiology laboratory manager activated, no obstruction) Social Tobacco and No alcohol Exam alert, oriented x 3, clear to auscultation bilaterally and regular rate & rhythm Airway Mallampati: Class I Dentition: full Pulmonary Asthma, Chronic Obstructive Pulmonary Disease and Sleep Apnea CV/HEM Hypertension mild CAD GI Gastroesophageal Reflux Disease Metabolic recurrent and chronic hyponatremia and hypokalemia Anesthetic Plan ASA status: 3 Anesthesia: General Other: A-line Risk of > 500 ml blood loss (7ml/kg in children): Yes, adequate IV access and fluids planned Medications/Allergies Home Medications Medication Instructions Recorded Confirmed Last Taken Type hydrochlorothiazide 25 mg tablet 25 mg PO DAILY@0500 #90 tabs 07/15/21 01/31/22 Unknown Rx Bone Growth Stimulator E0748 #1 ea 11/01/21 01/25/22 Unknown Rx alprazolam 0.5 mg tablet (Xanax) 0.5 mg PO BID PRN anxiety #60 tabs 12/10/21 01/31/22 Unknown Rx acetaminophen 500 mg tablet 1,000 mg PO Q6H PRN Pain 12/23/21 01/31/22 Unknown History carvedilol 3.125 mg tablet (Coreg) 3.125 mg PO BID #120 tabs 12/23/21 01/31/22 Unknown Rx magnesium oxide 400 mg PO QAM 12/23/21 01/31/22 Unknown History omeprazole 20 mg capsule,delayed 20 mg PO QAM 12/23/21 01/31/22 Unknown History release potassium chloride 10 mEq 10 meq PO DAILY #60 caps 12/23/21 01/31/22 Unknown Rx capsule,extended release aripiprazole 5 mg tablet (Abilify) 5 mg PO .morning #30 tabs 01/25/22 01/31/22 Unknown Rx lamotrigine 200 mg tablet 200 mg PO .5 pm #30 tabs 01/25/22 01/31/22 Unknown Rx (Lamictal) trazodone 50 mg tablet 150 mg PO DIRECTED #90 tabs 01/25/22 01/31/22 Unknown Rx vortioxetine 20 mg tablet 20 mg PO QAM #30 tabs 01/25/22 01/31/22 Unknown Rx (Trintellix) Allergies Allergy/AdvReac Type Severity Reaction Status Date / Time codeine Allergy Unknown Unknown Verified 01/25/22 11:25 meperidine [From Demerol] Allergy Unknown Unknown Verified 01/25/22 11:25 Penicillins Allergy Unknown Unknown Verified 01/25/22 11:25 prochlorperazine Allergy Unknown Unknown Verified 01/25/22 11:25 [From Compazine] [facility] Anesthesia Medical History Alcohol dependence in sustained full remission Atherosclerosis of coronary artery Bipolar II disorder Generalized anxiety disorder Nicotine dependence, cigarettes, uncomplicated Non morbid obesity Psychiatric care Solar aging of skin Social History Smoking and tobacco status: current every day smoker cigarettes Quit status (tobacco): has tried quititng History of recent travel: No Data Anesthesia Cardiac Studies: Echocardiogram 12/23/21
[2022-01-31 09:45] LABS: Anion Gap 15.3 (5-19); Blood Urea Nitrogen 8 mg/dL (8-23); Carbon Dioxide 28 mmol/L (22-29); Chloride 98 mmol/L (98-107); Glomerular Filtration Rate 83.5 mL/min (90-130); Glucose 97 mg/dL (65-115); Osmolality Calculated 284 mOsm/kg (285-295); Potassium 3.3 mmol/L (3.5-5.1); Sodium 138 mmol/L (136-145)
[2022-02-04] VITALS (25 sets, daily range): BP systolic 80–132; BP diastolic 49–108; PULSE 67–88; RESP 14–74; TEMP 36.2–37; O2SAT 90–99; BMI 25.4
--- NOTE | 2022-02-04 | SCC_ITS ---
Procedure done: 1. L5/S1 Interbody fusion with posterolateral fusion 2. Instrumentation L3/S1 3. Lumbopelvic fixation 4. Cage at L5/S1 5. L3/4 Laminectomy with partial facetectomies 6. L4/5 Laminectomy with partial facetectomies 7. L5/S1 laminectomy with partial facetectomies 8. Use of autograft from same incision 9. allograft 10. Bone marrow aspirate from right iliac crest 11. use of computer navigation/ stereotactic for spine 8 seconds of fluoroscopic guidance, for a cumulative dose of 25.8 mGy, was provided to Dr. Nascimento by the radiology department. C-arm images of the lumbar spine were saved for the patient's permanent record. [facility]
--- NOTE | 2022-02-04 | XR_ITS ---
WS: [id number] Lumbar spine, C-arm fluoroscopy, 02/04/2022 Clinical Data: L3-pelvis plif Comparison: Lumbar spine, 07/06/2021. Findings: Dr. Nascimento performed a lumbosacral posterior fusion with bilateral pedicle screws and connecting rods from L3 to S1. There are oblique screws fusing the SI joints. There is an artificial disc at L5-S1. There are laminectomies from L3 through L5. There is bony fusion from L4 through L5 bilaterally. XR/XR lumbar spine 2-3V* [id number] Impression: Posterior lumbosacral fusion.
[2022-02-04] MEDS: sodium chloride 0.9% 1,000 ML 30 ML IV (07:51)
[2022-02-04 08:00] LABS: Basophils # 0.1 10^3/uL (0.0-0.1); Basophils % 0.8 %; Eosinophils # 0.3 10^3/uL (0.0-0.8); Eosinophils % 3.5 %; Hematocrit 39.1 % (37.0-47.0); Hemoglobin 13.2 g/dL (11.5-15.3); Lymphocytes # 3.2 10^3/uL (0.8-4.8); Lymphocytes % 41.1 %; Mean Corpuscular HGB Conc 33.8 g/dL (30.0-36.0); Mean Corpuscular Hemoglobin 31.7 pg (28.0-34.0); Mean Corpuscular Volume 93.8 fl (81-99); Mean Platelet Volume 8.9 fL (7.4-10.4); Monocytes # 0.5 10^3/uL (0.2-0.9); Monocytes % 6.6 %; Neutrophils # 3.66 10^3/uL (1.8-7.7); Neutrophils % 47.7 %; Nucleated Red Blood Cells % 0 %; Platelet Count 411 10^3/cmm (130-400); Red Blood Count 4.17 10^6/uL (4.1-5.3); Red Cell Distribution Width 13.3 % (12.1-15.1); White Blood Count 7.7 10^3/uL (4.0-10.0)
[2022-02-04 08:16] LABS: Anion Gap 16.1 (5-19); Blood Urea Nitrogen 6 mg/dL (8-23); Calcium 9.7 mg/dL (8.5-10.5); Carbon Dioxide 28 mmol/L (22-29); Chloride 99 mmol/L (98-107); Glomerular Filtration Rate 83.5 mL/min (90-130); Glucose 111 mg/dL (65-115); Osmolality Calculated 286 mOsm/kg (285-295); Potassium 4.1 mmol/L (3.5-5.1); Sodium 139 mmol/L (136-145)
--- NOTE | 2022-02-04 08:57 | W.PM.OPSUD ---
Surgery/Procedure H&P Update DATE OF PROCEDURE: February 04, 2022 DATE H&P PERFORMED: 01/06/22 H&P UPDATE INFORMATION: I have reviewed H&P completed within last 30 days, I have examined patient prior to procedure and No changes to prior documentation PREOP DIAGNOSIS: Spondylolisthesis L4-5, right-sided L3-4 HNP,DDD Lspine PLANNED PROCEDURE: Operation Date: 02/04/22 08:30 Proposed Procedures p L3-PELVIS PSF W PLIF @ L4/5 L5/S1 SI JOINT FUSION [id number](Not Applicable) - Adrien Nascimento, DO
--- NOTE | 2022-02-04 09:18 | P.ANESUD_ITS ---
Pre-Anesthetic Update Pre-Anesthetic Assessment: Date of Surgery/Procedure: 02/04/22 Preop Pita gnosis: Spondylolisthesis L4-5, right-sided L3-4 HNP,DDD Lspine Proposed Procedure: Operation Date: 02/04/22 08:30 Proposed Procedures p L3-PELVIS PSF W PLIF @ L4/5 L5/S1 SI JOINT FUSION [id number](Not Applicable) - Adrien Nascimento, DO Any changes to Pre-Anesthetic Assessment?: No Last Intake: Intake Last Liquid Date 02/03/22 Last Liquid Time 23:30 Last Solid Date 02/03/22 Last Solid Time 23:30 Labs Last 48hrs: Short CBC 02/04/22 Range/Units 07:50 WBC 7.7 (4.0-10.0) 10^3/ uL Hgb 13.2 (11.5-15.3) g/dL Hct 39.1 (37.0-47.0) % MCV 93.8 (81-99) fl Plt Count 411 H (130-400) 10^3/c mm Neut % (Auto) 47.7 % Neut # (Auto) 3.66 (1.8-7.7) 10^3/u L BMP 02/04/22 07:50 Sodium 139 Potassium 4.1 Chloride 99 Carbon Dioxide 28 BUN 6 L Creatinine 0.7 Glucose 111 Calcium 9.7 Vitals: Temperature 97.7 F 02/04/22 07:25 Temperature Source Temporal Artery S can 02/04/22 07:25 Pulse Rate 67 02/04/22 07:25 Respiratory Rate 16 02/04/22 07:25 Blood Pressure 132/108 02/04/22 07:25 Blood Pressure Meghan n 116 02/04/22 07:25 Pulse Oximetry 97 02/04/22 07:25 Oxygen Delivery Me thod 02/04/22 07:25 Exam: Pre-Anes Outpt Exam: alert, oriented x 3, clear to auscultation bilate rally and regular rate & rhythm Cardiac Studies: Echocardiogram 12/23/21
[2022-02-04 12:32] LABS: Hematocrit 28.5 % (37.0-47.0); Hemoglobin 9.7 g/dL (11.5-15.3)
--- NOTE | 2022-02-04 13:02 | PM.OP ---
Operative Report Date of procedure: February 04, 2022 Pre-op diagnosis: Preop Diagnosis Spondylolisthesis L4-5, right-sided L3-4 HNP,DDD Lspine Post-op diagnosis: same Procedure done: 1. L5/S1 Interbody fusion with posterolateral fusion 2. Instrumentation L3/S1 3. Lumbopelvic fixation 4. Cage at L5/S1 5. L3/4 Laminectomy with partial facetectomies 6. L4/5 Laminectomy with partial facetectomies 7. L5/S1 laminectomy with partial facetectomies 8. Use of autograft from same incision 9. allograft 10. Bone marrow aspirate from right iliac crest 11. use of computer navigation/ stereotactic for spine Surgeon: Adrien Nascimento Galley Cook: Jagdish Browne Galley Cook: The neurosurgical physician assistant, Jagdish Browne, SALAS was needed for his expertise under the microscope. He was important and necessary throughout the procedure to complete in a safe and timely manner. He assisted with patient positioning prepping and draping tissue retraction suctioning of the operative field protection of the dural sac and tissue closure Estimated blood loss (mL): 1,200 Procedure: 1. L5/S1 Interbody fusion with posterolateral fusion 2. Instrumentation L3/S1 3. Lumbopelvic fixation 4. Cage at L5/S1 5. L3/4 Laminectomy with partial facetectomies 6. L4/5 Laminectomy with partial facetectomies 7. L5/S1 laminectomy with partial facetectomies 8. Use of autograft from same incision 9. allograft 10. Bone marrow aspirate from right iliac crest 11. use of computer navigation/ stereotactic for spine Patient is brought to the operative suite. After undergoing anesthesia, the patient had neuro monitoring attached. Patient was then placed in the prone position on the Aleksander table. All areas of impingement were well-padded. Patient was then prepped and draped in the normal sterile fashion. Skin incision was then made over the L3 to S1 space. Subperiosteal dissection was made out to the transverse processes of L3, L4, L5, and the sacral ala. The pedicle screws the [employer] bone marrow aspirate kit was used to aspirate bone marrow aspirate from the right iliac crest. This was done by using the sharp probe to open up the bone. Aspiration was performed and then the blunt probe was then used to dissect down to through the bone tunnel. An aspirating well drawn back a millimeter approximately 20 cc of bone marrow aspirate was used. Admixed with the allograft and autograft bone that will be used. Next attention was brought to the placement of the fiducial for computer navigation. 2 pins were placed into the right iliac crest. These pins were later can be removed. The fusion was attached. The C-arm was brought in and spun around the patient and the information was loaded the computer this will allow the placement of pedicle screws through navigation. The technique for placing the pedicle screws was to use a drill followed by the gearshift probe linked to computer navigation. Followed by the ball probe to feel the superior inferior medial lateral oconnor of the pedicles. Then placement of the screws with computer navigation. Was done at each pedicle. Screws were placed at L 3 bilaterally, L4 bilaterally, L5 bilaterally and S1 bilaterally. Next attention was brought to placing the iliac screws. These were placed in the sacral ala iliac fashion. This was done using computer navigation. The gearshift probe was placed into the sacrum through the ala through the SI joint into the iliac crest. Pedicle feeler was then used. Then the screws placed under computer navigation. These were size 80 8.5 millimeters screws from [place]. This was placed bilaterally into the left and right side. Next attention was brought to performing the laminectomy of L3. This was done with a high-speed bur. Partial facetectomies were also performed at L3-4 bilaterally. This again was done with a high-speed bur. Kerrison rongeurs were then used to clean the edges. The ligamentum flavum was taken down from L3-L4. Once is completed a [place] was used to ensure that the L3 nerve was freed up bilaterally through the L3-4 foramens and the L4 nerve went around bilateral pedicles. Next attention was brought to performing the laminectomy of L4. This was done with a high-speed bur. Partial facetectomies were also performed at L4/5 bilaterally. This again was done with a high-speed bur. Kerrison rongeurs were then used to clean the edges. The ligamentum flavum was taken down from L4/5. Once is completed a Brenda was used to ensure that the L4 nerve was freed up bilaterally through the L4/5 foramens and the L5 nerve went around bilateral pedicles. Next attention was brought to performing the laminectomy ofL5. This was done using the high-speed bur Kerrisons and curettes. Once the lamina was removed and then attention was brought to performing a partial facetectomy on the contralateral side. This was done again using the high-speed bur curettes and Kerrisons. The ligamentum flavum was taken down bilaterally from L5 to S1. Attention was then brought to the facet on the ipsilateral side. The facet was taken down. The S1 nerve was decompressed as it passed around the S1 pedicle. The laminectomy was done for purposes of decompressing the nerve as well as placement of the cage. The L5 nerve was identified as it traversed through the L5/S1 foramen. The thecal sac was identified and retracted. The L5/S1 disc base was identified. Using a knife the disc base was opened. And then sequential kristina were placed. The first shaver was a 6 and the last shaver was a 11. Using a pituitary and down going curette the endplates were scraped and disc material was removed from the space. Once adequate decompression of the disc base was felt to be had. Osteoamp sponge was packed into the anterior aspect of the disc base. Then a size 12 cage from [employer] was placed after packing osteoamp into the cage. While placing the cage the thecal sac and S1 nerve was protected. C arm was used to ensure that the cages placed in the appropriate position. Attention was then brought to attaching the rods to the screws placed in the L3 bilaterally, L4 bilaterally, L5 bilaterally, S1 bilaterally and also down to the iliac screws bilaterally. Caps were torqued into position. Locking the construct in place. Wound was copiously irrigated and then attention was brought to decorticating the facets and transverse processes laterally. Bone that was taken down from the lamina was used along with osteoamp fibers and sponges were packed into the lateral gutters along the facet joints. This was done bilaterally. Wound was then closed in a layered fashion starting with the thoracolumbar fascia. 0-vicryl was used the sub cutaneous tissue was closed with 2-0 vicryl and skin with 4-0 monocryl. Glue was then used to seal the skin and a steril dressing was applied. Patient was then placed in the supine position. The endotracheal tube was removed and patient was transferred to the PACU in stable condition.
--- NOTE | 2022-02-04 13:34 | ANE.PACU2 ---
Inpatient post-anesthesia follow up: Airway intact: Yes Vital signs: Temperature 97.1 F Pulse Rate 81 Respiratory Rate 18 Blood Pressure 95/61 Pulse Oximetry 93 Oxygen Delivery Me thod Room Air Oxygen Flow Rate Fraction of Inspir ed Oxygen Hydration adequate: Yes Nausea and vomiting: No Pain level: 1 Mental status: Baseline
[2022-02-04] MEDS: lactated ringers 1,000 ML 90 ML IV ×2 (14:22→19:32)
[2022-02-04] MEDS: ketorolac 30 mg/mL INJ IVP (14:23)
--- NOTE | 2022-02-04 14:31 | PC.NURSE ---
nurse notified for Blood pressure
--- NOTE | 2022-02-04 15:04 | PC.NURSE ---
nurse was notified about low blood pressure
[2022-02-04] MEDS: clindamycin 900 MG/50 ML PREMIX 100 MG IV (16:54)
[2022-02-04] MEDS: lamoTRIgine 100 mg Tablet 200 MG PO (16:54)
[2022-02-04] MEDS: sodium chloride 0.9% (100 ml) 100 ML 150 ML (17:04)
[2022-02-04] MEDS: docusate sodium 100 mg Capsule PO (17:04)
[2022-02-04] MEDS: HYDROcodone-acetaminophen 5-325 mg Tablet PO ×2 (17:04→21:53)
[2022-02-04] MEDS: ondansetron 2 mg/ML SDV 2 mL 4 MG IVP (17:50)
[2022-02-04] MEDS: alum-mag-hydroxide-sime 30 mL UDC PO (17:52)
[2022-02-04] MEDS: morphine 4 mg/mL SDV 1 mL IVP (17:55)
[2022-02-05] VITALS (8 sets, daily range): BP systolic 95–124; BP diastolic 54–70; PULSE 67–77; RESP 16–19; TEMP 36.4–36.8; O2SAT 90–98
[2022-02-05] MEDS: clindamycin 900 MG/50 ML PREMIX 100 MG IV ×2 (00:23→08:05)
[2022-02-05] MEDS: alum-mag-hydroxide-sime 30 mL UDC PO (03:57)
[2022-02-05] MEDS: HYDROcodone-acetaminophen 5-325 mg Tablet PO ×5 (04:16→20:58)
[2022-02-05] MEDS: hydroCHLOROthiazide 25 mg Tablet PO (05:44)
[2022-02-05] MEDS: magnesium oxide 400 mg tablet PO (05:45)
[2022-02-05] MEDS: lactated ringers 1,000 ML 90 ML IV (05:46)
--- NOTE | 2022-02-05 07:28 | P.PN_ITS ---
Subjective Subjective: POD 1 Patient up in bed no apparent distress. Moderate back pain mild leg pain. Denies any chest pain, shortness of breath, headaches. Vitals/I&O/Wt Last Vital Signs Temp 98.2 F 02/05/22 04:00 Pulse 68 02/05/22 04:00 Resp 17 02/05/22 04:00 BP 105/61 02/05/22 04:00 Pulse Ox 96 02/05/22 04:00 O2 Del Method 02/04/22 15:30 02/04/22 02/05/22 02/05/22 22:59 06:59 14:59 Intake Total 1964.5 / 3964.5 1751 / 5715.5 Output Total 220 / 1760 1175 / 2935 Balance 1744.5 / 2204.5 576 / 2780.5 Weight last 48 hrs Weight 148 lb Physical Exam Narrative: Patient presents alert and oriented x3 with a good general appearance normal mood and affect. Normal coordination normal stability. Mild tenderness around the incisional site with the incision appears clean and dry with Hemovac intact. No signs of erythema or drainage. No signs of infection. Patient denies any fevers or chills. 4/5 motor strength both lower extremities with negative straight leg raise bilaterally. Calves are supple no medial thigh tenderness. Pulses are 2+ at the dorsalis pedis and posterior tibial region. Good capillary refill throughout normal sensation light touch both lower extremities. Urinary Catheter Management: Masters: Cath Placed During This Visit: yes Reason for Continuing Indwelling Catheter: Required Immobilization for Trauma or Surgery or Anesthesia Urinary Catheter Date of Insertion: 02/04/22 Urinary Catheter Time of Insertion: 10:00 Data : 02/04/22 12:25 02/04/22 07:50 A&P Assessment and plan (1) Status post lumbar spinal fusion: We will discontinue the Masters catheter. Have physical therapy evaluate for mobilizing in the halls. Continue incentive spirometry for pulmonary toilet. Work with laxative of choice to help with the BM. We will hold her discharge until tomorrow morning for better pain control and mobilization for more stable transition home. We will discontinue Hemovac drain tomorrow prior to discharge. (2) Acute blood loss as cause of postoperative anemia: Attestations Medical Necessity Statement*: Discharge home tomorrow when better pain control and medically stable Coding Level of Care Code Acute Law Enforcement Instructor for Chg Fwd Diagnoses Status post lumbar spinal fusion Z98.1 Acute blood loss as cause of postoperative anemia D62
[2022-02-05] MEDS: ARIPiprazole 10 mg Tablet 5 MG PO (08:05)
[2022-02-05] MEDS: ketorolac 30 mg/mL INJ IVP ×3 (08:05→20:58)
[2022-02-05] MEDS: docusate sodium 100 mg Capsule PO ×2 (08:06→18:25)
[2022-02-05] MEDS: carvedilol 3.125 mg Tablet PO ×2 (08:06→18:25)
[2022-02-05] MEDS: potassium chloride ER 10 mEq Tablet PO (08:06)
[2022-02-05] MEDS: pantoprazole DR 40 mg Tablet PO (08:06)
[2022-02-05 08:13] LABS: Hemoglobin 9.5 g/dL (11.5-15.3)
[2022-02-05 09:11] LABS: Anion Gap 14.2 (5-19); Blood Urea Nitrogen 10 mg/dL (8-23); Calcium 8.2 mg/dL (8.5-10.5); Carbon Dioxide 26 mmol/L (22-29); Chloride 93 mmol/L (98-107); Glomerular Filtration Rate 83.5 mL/min (90-130); Glucose 108 mg/dL (65-115); Osmolality Calculated 270 mOsm/kg (285-295); Potassium 3.2 mmol/L (3.5-5.1); Sodium 130 mmol/L (136-145)
[2022-02-05] MEDS: lamoTRIgine 100 mg Tablet 200 MG PO (16:52)
[2022-02-05] MEDS: morphine 4 mg/mL SDV 1 mL IVP (18:25)
[2022-02-06] VITALS: BP 150/80; PULSE 86; RESP 18; TEMP 36.6; O2SAT 96
[2022-02-06] MEDS: lactated ringers 1,000 ML 90 ML IV (00:06)
[2022-02-06] MEDS: ondansetron 2 mg/ML SDV 2 mL 4 MG IVP (00:20)
[2022-02-06] MEDS: HYDROcodone-acetaminophen 5-325 mg Tablet PO ×2 (03:06→14:14)
[2022-02-06] MEDS: ALPRAZolam 0.5 mg Tablet PO (03:14)
[2022-02-06 04:00] VITALS: BP 109/67; PULSE 82; RESP 17; TEMP 36.8; O2SAT 92
[2022-02-06] MEDS: magnesium oxide 400 mg tablet PO (06:06)
[2022-02-06] MEDS: hydroCHLOROthiazide 25 mg Tablet PO (06:06)
[2022-02-06 06:09] VITALS: RESP 18
[2022-02-06] MEDS: morphine 4 mg/mL SDV 1 mL IVP (06:09)
--- NOTE | 2022-02-06 07:47 | PM.PN ---
Subjective Subjective: POD 2 Patient resting comfortably. Mild back pain leg pain has improved. She still has not had a bowel movement. Denies any chest pain, shortness of breath, headaches. Vitals/I&O/Wt Last Vital Signs Temp 98.3 F 02/06/22 04:00 Pulse 82 02/06/22 04:00 Resp 18 02/06/22 06:09 BP 109/67 02/06/22 04:00 Pulse Ox 92 02/06/22 04:00 O2 Del Method 02/05/22 16:00 02/05/22 02/06/22 02/06/22 22:59 06:59 14:59 Intake Total 1000 / 1530 750 / 2280 Output Total 150 / 150 Balance 850 / 1380 750 / 2130 Weight last 48 hrs Weight 148 lb Physical Exam Narrative: Patient presents alert and oriented x3 with a good general appearance normal mood and affect.? Normal coordination normal stability.? Mild tenderness around the incisional site with the incision appears clean and dry.? No signs of erythema or drainage.? No signs of infection.? Patient denies any fevers or chills.? 4/5 motor strength both lower extremities with negative straight leg raise bilaterally.? Calves are supple no medial thigh tenderness.? Pulses are 2+ at the dorsalis pedis and posterior tibial region.? Good capillary refill throughout normal sensation light touch both lower extremities. Abdomen slightly distended but soft positive for bowel sounds. Urinary Catheter Management: Masters: Cath Placed During This Visit: yes, but has since been removed by the nurse Reason for Continuing Indwelling Catheter: Decision to DC Catheter Urinary Catheter Date of Insertion: 02/04/22 Urinary Catheter Time of Insertion: 10:00 Date Urinary Catheter Removed: 02/05/22 Time Urinary Catheter Discontinued: 11:00 Data : 02/05/22 07:55 02/05/22 07:55 A&P Assessment and plan (1) Acute blood loss as cause of postoperative anemia: Encourage mobilization with a walker. Discussed with the nurse to have laxative choice to help with bowel movement prior to discharge. We will see her back in the office in 1 week's time for a wound check. Continue with incentive spirometry at home for pulmonary toilet. She will call if she is having problems. (2) Status post lumbar spinal fusion: Attestations Medical Necessity Statement*: DC home today Coding Level of Care Code Acute Last Marker for Chg Fwd Diagnoses Acute blood loss as cause of postoperative anemia D62 Status post lumbar spinal fusion Z98.1
[2022-02-06 07:57] VITALS: BP 102/51; PULSE 81; RESP 16; TEMP 36.8; O2SAT 91
[2022-02-06] MEDS: docusate sodium 100 mg Capsule PO (08:33)
[2022-02-06] MEDS: bisacodyl 10 mg Supp PR (08:33)
[2022-02-06] MEDS: ARIPiprazole 10 mg Tablet 5 MG PO (08:34)
[2022-02-06] MEDS: carvedilol 3.125 mg Tablet PO (08:34)
[2022-02-06] MEDS: potassium chloride ER 10 mEq Tablet PO (08:34)
[2022-02-06] MEDS: pantoprazole DR 40 mg Tablet PO (08:34)
[2022-02-06] MEDS: magnesium hydroxide 30 mL UDC PO (11:00)
[2022-02-06 11:59] VITALS: BP 105/61; PULSE 85; RESP 16; TEMP 37.5; O2SAT 91
[2022-02-06] MEDS: Fleet Enema 133 mL Enema PR (13:35)
--- NOTE | 2022-02-06 14:47 | PC.NURSE ---
discharge instructions given and explained.pt and cg verb understanding of instructions.douglas gardiner notified that pain med was escribed to [facility]..and they are not open today.he will have med escribed to [facility] in [place].discharged via w/c to exit.spouse to drive pt home.
--- NOTE | 2022-02-06 14:49 | PM.DCS ---
Discharge Providers Date of Admission: 02/04/22 13:43 Date of Discharge: February 06, 2022 Attending Provider at Admission: Adrien Nascimento DO Attending Provider at Discharge: Adrien Nascimento DO Primary Care Provider: Sven Gallardo MD Diagnoses at Discharge Discharge Diagnosis (1) Acute blood loss as cause of postoperative anemia: Status: Acute (2) Status post lumbar spinal fusion: Status: Acute Reason for Visit Reason for Visit: PLIF L3-PELVIS L4/5 L5/S1 Hospital Course Hospital Course uneventful Physical Exam Urinary Catheter Management: Masters: Cath Placed During This Visit: yes, but has since been removed by the nurse Reason for Continuing Indwelling Catheter: Decision to DC Catheter Urinary Catheter Date of Insertion: 02/04/22 Urinary Catheter Time of Insertion: 10:00 Date Urinary Catheter Removed: 02/05/22 Time Urinary Catheter Discontinued: 11:00 Discharge Data Studies Completed and Pending Completed Studies During Hospitalization Category Date Time Status XR lumbar spine 2-3V* 87600 Routine Exams 02/04/22 Completed Pending at discharge Category Date Time Status C-arm Fluoroscopy [id number] Routine Exams 02/04/22 07:14 Taken Radiology Impressions Lumbar Spine X-Ray 02/04/22 00:00 Impression: Posterior lumbosacral fusion. Laboratory Results WBC 7.7 10^3/uL (4.0-10.0) 02/04/22 07:50 RBC 4.17 10^6/uL (4.1-5.3) 02/04/22 07:50 Hgb 9.5 g/dL (11.5-15.3) L 02/05/22 07:55 Hct 27.0 % (37.0-47.0) L 02/05/22 07:55 MCV 93.8 fl (81-99) 02/04/22 07:50 MCH 31.7 pg (28.0-34.0) 02/04/22 07:50 MCHC 33.8 g/dL (30.0-36.0) 02/04/22 07:50 RDW 13.3 % (12.1-15.1) 02/04/22 07:50 Plt Count 411 10^3/cmm (130-400) H 02/04/22 07:50 MPV 8.9 fL (7.4-10.4) 02/04/22 07:50 Neut % (Auto) 47.7 % 02/04/22 07:50 Lymph % (Auto) 41.1 % 02/04/22 07:50 Bea[place]gard % (Auto) 6.6 % 02/04/22 07:50 Eos % (Auto) 3.5 % 02/04/22 07:50 Baso % (Auto) 0.8 % 02/04/22 07:50 Neut # (Auto) 3.66 10^3/uL (1.8-7.7) 02/04/22 07:50 Lymph # (Auto) 3.2 10^3/uL (0.8-4.8) 02/04/22 07:50 Bea[place]gard # (Auto) 0.5 10^3/uL (0.2-0.9) 02/04/22 07:50 Eos # (Auto) 0.3 10^3/uL (0.0-0.8) 02/04/22 07:50 Baso # (Auto) 0.1 10^3/uL (0.0-0.1) 02/04/22 07:50 Nucleated RBC % (auto) 0 % 02/04/22 07:50 Nucleated RBCs # 0.0 /100WBC 02/04/22 07:50 Sodium 130 mmol/L (136-145) L 02/05/22 07:55 Potassium 3.2 mmol/L (3.5-5.1) L 02/05/22 07:55 Chloride 93 mmol/L (98-107) L 02/05/22 07:55 Carbon Dioxide 26 mmol/L (22-29) 02/05/22 07:55 Anion Gap 14.2 (5-19) 02/05/22 07:55 BUN 10 mg/dL (8-23) 02/05/22 07:55 Creatinine 0.7 mg/dL (0.5-0.9) 02/05/22 07:55 GFR Calculation 83.5 mL/min (90-130) L 02/05/22 07:55 Glucose 108 mg/dL (65-115) 02/05/22 07:55 Calculated Osmolality 270 mOsm/kg (285-295) L 02/05/22 07:55 Calcium 8.2 mg/dL (8.5-10.5) L 02/05/22 07:55 Blood Type O Positive 02/04/22 07:50 Rho(D) Type Positive 02/04/22 07:50 Antibody Screen Negative 02/04/22 07:50 Crossmatch See Detail 02/04/22 07:50 Vitals Last Vital Signs Temp 99.5 F 02/06/22 11:59 Pulse 85 02/06/22 11:59 Resp 16 02/06/22 11:59 BP 105/61 02/06/22 11:59 Pulse Ox 91 02/06/22 11:59 O2 Del Method 02/06/22 11:59 Discharge Plan Discharge Patient Disposition: Home Condition: Stable Prescriptions: New hydrocodone-acetaminophen 5-325 mg Tablet 1 - 2 tab PO Q4H PRN (Reason: Postop Pain) Qty: 40 0RF Continued alprazolam [Xanax] 0.5 mg tablet 0.5 mg PO BID PRN (Reason: anxiety) Qty: 60 3RF aripiprazole [Abilify] 5 mg tablet 5 mg PO .morning Qty: 30 6RF Rx Instructions: Take one tablet every morning lamotrigine [Lamictal] 200 mg tablet 200 mg PO .5 pm Qty: 30 6RF Rx Instructions: Take one tablet at 5 pm Trintellix 20 mg tablet 20 mg PO QAM Qty: 30 6RF trazodone 50 mg tablet 150 mg PO DIRECTED Qty: 90 6RF Rx Instructions: Take three tablets 30-60 min prior to bedtime hydrochlorothiazide 25 mg tablet 25 mg PO DAILY@0500 Qty: 90 3RF (DME) Bone Growth Stimulator E0748 See Rx Instructions .Route .MEDSUPPLY Qty: 1 0RF Rx Instructions: As directed acetaminophen 500 mg Tablet 1,000 mg PO Q6H PRN (Reason: Pain) magnesium oxide 400 mg magnesium Tablet 400 mg PO QAM omeprazole 20 mg capsule,delayed release(DR/EC) 20 mg PO QAM carvedilol [Coreg] 3.125 mg tablet 3.125 mg PO BID Qty: 120 2RF Rx Instructions: must administer with a meal/food potassium chloride 10 mEq capsule, extended release 10 meq PO DAILY Qty: 60 2RF Discharge Orders: Discharge Order (Routine); Ordered 02/06/22 Ordered By: Jagdish Browne Referrals: Sven Gallardo MD [Primary Care Provider] - 1 week (Please call and schedule a follow up appointment on Wednesday 02/07. ) Discharge Diet: Advance as tolerated Discharge Activity: Limit activity as instructed Patient Instructions: Hydrocodone/Acetaminophen (By mouth), Lumbar Spinal Fusion (GEN) Activity Restrictions/Additional Instructions: Thank you for choosing [facility] for your care! The following is a list of instructions, from your provider, to follow upon your discharge to ensure you have the optimal recovery from your recent injury or surgery. Follow-up care is a montoya part of your treatment and safety. Be sure to make and go to all appointments and call your doctor if you are having problems. If you do not already have a follow-up appointment made, call Dr. Nascimento's] office in the next 1-3 days to make follow up appointment for 1 weeks at [phone]. It is also a good idea to know your test results and keep a list of the medicines you take. Medications will be prescribed for you at your provider's discretion. These medications are to be used as instructed; if they are taken more often that prescribed they will not be refilled early and in most cases will not be refilled at all. > When a refill is needed, you should contact ivania fowler 2-3 business days before your prescription runs out. Medications will NOT be refilled by instructional interventionist providers after hours! > Many pain medications contain Tylenol (Acetaminophen). Do not consume more than 4,000 mg of Tylenol per day in total with any combination of medications. > Pain medications can cause constipation. Please use an over the counter stool softener as directed, while taking pain medications. Consult your local pharmacist with questions or recommendations on stool softeners. If constipation persists, contact our office or your primary care provider. > While under our care, you are not to receive pain medications or other controlled substances from any other provider unless our office is notified and approves. Any attempts to do so will result in refusal to prescribe any further pain medications and possible dismissal from our practice. ? Walking is essential for the healing process after surgery. We would like you to slowly advance your walking. This should be done on relatively flat clear ground (inside or out) or can be done on a treadmill. Remember this goal does not have to happen all at once, slowly increase your distance and duration. This can be broken into more more than one walk per day as tolerated. Patients who walk as directed after surgery rarely require Physical Therapy. In the unlikely event this issue arises your provider will direct hospital staff to make the appropriate arrangements. ? No lifting over 5 pounds {a gallon of milk) or bending/twisting until further notice. Each of these activities places an unnecessary amount of stress onto the body and can impede the delicate healing process. > Instead of bending at the waist, keep your back straight and bend at the knees. > Instead of twisting your torso, keep your back straight and turn your entire body with your feet. ? You may sleep in any position which makes you comfortable. Many patients find comfort sleeping in a reclining chair. It is not abnormal to have difficulty sleeping for the first several weeks following your surgery. We recommend trying Benadry! or Tylenol PM as directed to help with your sleeping difficulties. Both medications are over the counter and available without prescription. ? NO SMOKING!!! Smoking dramatically increases the probability of developing postoperative wound infections. ? Common complaints after lumbar and/or thoracic spine surgery include, but are not limited to: numbness and/or tingling in the legs, pain around the incision and surrounding tissues, muscle spasms, or stiffness of the middle to low back. Contact our office if these symptoms persist or if an acute change occurs. ? No driving for the first 3-5days, and not while taking narcotics until seen at your follow-up appointment and cleared. There are no restrictions for riding on short trips, however if you take a longer trip, arrangements should be made to make regular stops to get out of the vehicle and stretch . ? Swelling is an unfortunate event that will take place with any surgery and is the primary source of your postoperative discomfort. While walking and regular approved activities helps control inflammation, there are additional steps you can take to minimize swelling. > Place ice over the surgical site and surrounding tissue for twenty minutes, followed by applying a low/medium heat (heating pad) for an additional twenty minutes every 1-2 hours as needed for painrelief. > You may use of over the counter anti-inflammatory medications (Ibuprofen, Motrin, Aleve, Advil, etc) as directed on the package label. These types of medicines will significantly reduce the amount of discomfort you experience after surgery from swelling. It should be noted that if you have and allergy to any of these medications, or a history of ulcers or kidney disease you should consult you primary care provider prior to starting these medications. Discharge Attestations Time Spent in Discharge Care*: less than 30 min Quality Metrics Clinical Quality Measures [ No reported AMI, CVA or VTE this stay] Coding Level of Care Code Acute Chg FW DC note Diagnoses Acute blood loss as cause of postoperative anemia D62 Status post lumbar spinal fusion Z98.1
[2022-02-06 14:51] VITALS: BP 105/61; PULSE 85; RESP 16; TEMP 37.5; O2SAT 91
== END 2022-02-06 14:53 | disposition home or self-care (01) | DRG 454 ==
LOC: MEDSURG 13:44
PROVIDERS: Anesthesiology; Physician Assistant; Admitting Provider Orthopaedic Surgery; PCP Family Medicine; Visit Provider Orthopaedic Surgery
PROC: 0SG30AJ Fusion of Lumbosacral Joint with Interbody Fusion Device, Posterior Approach, Anterior Column, Open Approach (ICD-10-PCS; CPT 22612; principal; 2022-02-04 08:30)
DX: M43.16 Spondylolisthesis, lumbar region (principal); D62 Acute posthemorrhagic anemia; F31.81 Bipolar II disorder; Z98.1 Arthrodesis status; M51.36 Other intervertebral disc degeneration, lumbar region; G89.29 Other chronic pain; Z88.5 Allergy status to narcotic agent; Z88.0 Allergy status to penicillin; F10.21 Alcohol dependence, in remission; I25.10 Atherosclerotic heart disease of native coronary artery without angina pectoris; F41.1 Generalized anxiety disorder; F17.210 Nicotine dependence, cigarettes, uncomplicated; Z79.891 Long term (current) use of opiate analgesic
CPT/HCPCS: 36415; 36430; 51702; 72100; 76000; 80048; 85014; 85018; 85025; 86850; 86900; 86920; 97110; 97116; 97161; 97530; C1713; J1100; J1170; J1200; J1885; J2250; J2270; J2405; J2704; J2710; J3010; J3490; J7030; P9016

== ENCOUNTER → 2022-02-10 10:16 | Outpatient (BNVA) | payer MEDICARE, MEDICAID, SELFPAY | PROVIDERS: PCP Family Medicine; Visit Provider Physician Assistant | DX: Z47.89 Encounter for other orthopedic aftercare (principal); Z98.1 Arthrodesis status | CPT/HCPCS: 99024 ==

== ENCOUNTER → 2022-02-14 15:32 | Outpatient (BNVA) | payer MEDICARE, MEDICAID, SELFPAY | PROVIDERS: PCP Family Medicine; Visit Provider Family Medicine | DX: D62 Acute posthemorrhagic anemia (principal); E87.6 Hypokalemia; Z09 Encounter for follow-up examination after completed treatment for conditions other than malignant neoplasm; Z98.1 Arthrodesis status | CPT/HCPCS: 80048; 85025 ==

== ENCOUNTER → 2022-02-17 13:04 | Outpatient (BNVA) | payer MEDICARE, MEDICAID, SELFPAY | PROVIDERS: PCP Family Medicine; Visit Provider Physician Assistant | DX: Z47.89 Encounter for other orthopedic aftercare (principal); Z98.1 Arthrodesis status | CPT/HCPCS: 72100; 99024 ==

== ENCOUNTER → 2022-03-01 13:25 | Outpatient (BNVA) | payer MEDICARE, MEDICAID, SELFPAY | PROVIDERS: PCP Family Medicine; Visit Provider Physician Assistant | DX: Z98.1 Arthrodesis status (principal); Z47.89 Encounter for other orthopedic aftercare; M17.11 Unilateral primary osteoarthritis, right knee | CPT/HCPCS: 72100; 73560; 73565; 99024; 99213 ==

== ENCOUNTER 2022-03-20 11:55 | Emergency (ER) | payer MEDICARE, MEDICAID, SELFPAY ==
[2022-03-20 12:05] VITALS: BP 137/94; PULSE 75; RESP 16; TEMP 36.4; O2SAT 97; BMI 24.7
[2022-03-20 12:15] VITALS: BP 137/94; PULSE 75; RESP 16; TEMP 36.4; O2SAT 97
--- NOTE | 2022-03-20 12:19 | ED_ITS ---
HPI - Back Pain/Injury General: Chief Complaint: Back Pain/Injury Stated Complaint: groin pain Time Seen by Provider: 03/20/22 12:14 Source: patient Mode of arrival: ambulatory Limitations: no limitations History of Present Illness: 67-year-old female presents to the ER today for worsening low back pain that is radiating down the right leg for the last several days. Patient reports she had a spinal fusion done in the fall and she reports since then she has had continued pain. Patient has seen the specialist and had an MRI given she had a fall after the surgery however the MRI did not indicate anything acute. Patient reports she was on pain medicine but ran out on . Patient reports even on the pain meds she has pain but is tolerable. Patient denies any loss of bowel or bladder control. Denies any neurological deficits. Patient reports the pain starts in the low back and radiates down around the front of her leg to about the knee. Patient has an appointment with her PCP tomorrow. She will see the specialist later in the week also. Review of Systems General: Reports: 10 or more systems reviewed and unremarkable except in HPI and below PFSH ED PFSH: Medical History Alcohol dependence in sustained full remission Atherosclerosis of coronary artery Bipolar II disorder Generalized anxiety disorder Nicotine dependence, cigarettes, uncomplicated Non morbid obesity Psychiatric care Solar aging of skin Social History Smoking and tobacco status: current every day smoker cigarettes Quit status (tobacco): has tried quititng History of recent travel: No Physical Exam Const: COMMON NORMALS: average body habitus, patient oriented x3, no limitations, healthy appearing, alert and well nourished Eye: COMMON NORMALS: conjunctivae normal CONJUNCTIVA: Yes conjunctivae normal Resp: COMMON NORMALS: normal respiratory effort EFFORT & INSPECTION: Yes able to speak in complete sentences Cardio: COMMON NORMALS: regular rate and regular rhythm RATE: regular rate RHYTHM: regular rhythm Back/Pelvis: COMMON NORMALS: thoracic and lumbar spine normal to inspection OTHER: R SI joint tenderness, mild midline tenderness Extremity: COMMON NORMALS: normal to inspection, full ROM and no pedal edema Neuro: COMMON NORMALS: patient oriented x3 SENSORIUM/ORIENTATION: Yes alert Psych: COMMON NORMALS: Normal thought process present and cooperative THOUGHT PROCESS: Normal thought process present Skin: COMMON NORMALS: no rashes or lesions noted and no wounds GENERAL SKIN EXAM: no rashes or lesions noted Course ED course: Presents for worsening low back pain. She reports she ran out of pain meds on . She has appointment with PCP tomorrow and specialist on . Patient has had continued pain since her spinal fusion done earlier in the fall. Denies any new pain just reports it is worse given she ran out of pain meds. She has no neurological deficits and no reason for new imaging at this time. Vital Signs: Vital signs: Vital Signs Temperature 97.6 F 03/20/22 12:15 Pulse Rate 75 03/20/22 12:15 Respiratory Rate 16 03/20/22 12:15 Blood Pressure 137/94 03/20/22 12:15 Pulse Oximetry 97 03/20/22 12:15 Oxygen Delivery Me thod 03/20/22 12:15 MDM - Back Pain/Injury Medical Decision Making Patient has no neurological deficits or reason for imaging. We will refill patient's hydrocodone for the next 24 hours. Patient does have a follow-up tomorrow with her PCP and should discuss pain control beyond tomorrow with them. Patient has no new symptoms, this is been an ongoing issue since her surgery. Return to the ER with new or worsening symptoms. Patient verbalized understanding was in agreement with the treatment plan. Critical Care Time Critical Care Time: Critical Care Time: No Discharge Plan Discharge Patient Disposition: Home Clinical Impression: Chronic radicular low back pain Condition: Stable Prescriptions: New Medrol (Den) 4 mg tablets,dose pack See Rx Instructions .ROUTE .COMPLEX Qty: 21 0RF Rx Instructions: orally per package directions hydrocodone-acetaminophen 5-325 mg tablet 1 tab PO Q8H PRN (Reason: pain) 2 Days Qty: 6 0RF No Action alprazolam [Xanax] 0.5 mg tablet 0.5 mg PO BID PRN (Reason: anxiety) Qty: 60 3RF aripiprazole [Abilify] 5 mg tablet 5 mg PO .morning Qty: 30 6RF Rx Instructions: Take one tablet every morning lamotrigine [Lamictal] 200 mg tablet 200 mg PO .5 pm Qty: 30 6RF Rx Instructions: Take one tablet at 5 pm Trintellix 20 mg tablet 20 mg PO QAM Qty: 30 6RF trazodone 50 mg tablet 150 mg PO DIRECTED Qty: 90 6RF Rx Instructions: Take three tablets 30-60 min prior to bedtime omeprazole 20 mg capsule,delayed release(DR/EC) 20 mg PO QAM Qty: 90 1RF potassium chloride 10 mEq capsule, extended release 10 meq PO TID Qty: 90 2RF ferrous sulfate 325 mg (65 mg iron) tablet 325 mg PO BID Qty: 90 2RF hydrocodone-acetaminophen 5-325 mg tablet 1 - 2 tab PO Q4H PRN (Reason: Postop Pain) 5 Days Qty: 40 0RF cyclobenzaprine 10 mg tablet 10 mg PO TID PRN (Reason: muscle spasm) Qty: 30 1RF tramadol 50 mg tablet 50 mg PO Q4H PRN (Reason: pain) Qty: 40 0RF hydrochlorothiazide 25 mg tablet 25 mg PO DAILY@0500 Qty: 90 3RF (DME) Bone Growth Stimulator E0748 See Rx Instructions .Route .MEDSUPPLY Qty: 1 0RF Rx Instructions: As directed hydrocodone-acetaminophen 5-325 mg tablet 1 - 2 tab PO .Q4-6H Qty: 40 0RF acetaminophen 500 mg Tablet 1,000 mg PO Q6H PRN (Reason: Pain) magnesium oxide 400 mg magnesium Tablet 400 mg PO QAM carvedilol [Coreg] 3.125 mg tablet 3.125 mg PO BID Qty: 120 2RF Rx Instructions: must administer with a meal/food Discharge Orders: Discharge ED (Routine); Ordered 03/20/22 Ordered By: Sheila Calloway Referrals: Sven Gallardo MD [Primary Care Provider] - Discharge Diet: Usual diet Discharge Activity: Increase activity as tolerated Patient Instructions: Opioid Safety, Pain Management Activity Restrictions/Additional Instructions: Hydrocodone as prescribed. Take Medrol Dosepak as prescribed. Follow-up with PCP and specialist this week at previously scheduled appointments. Recommend warm, moist heat. Rest recommended. Topical muscle rub recommended. Return to the ER with new or worsening symptoms. Coding Level of Care Code ED Economic Geographer for Mauro Ariza
== END 2022-03-20 12:30 | disposition home or self-care (01) ==
PROVIDERS: Emergency Provider Physician Assistant; PCP Family Medicine
DX: M54.16 Radiculopathy, lumbar region (principal); G89.29 Other chronic pain; F17.210 Nicotine dependence, cigarettes, uncomplicated; M43.20 Fusion of spine, site unspecified
CPT/HCPCS: 99283

== ENCOUNTER → 2022-03-24 12:49 | Outpatient (BNVA) | payer MEDICARE, MEDICAID, SELFPAY | PROVIDERS: PCP Family Medicine; Visit Provider Physician Assistant | DX: Z47.89 Encounter for other orthopedic aftercare (principal); Z98.1 Arthrodesis status | CPT/HCPCS: 72100; 99024 ==

== ENCOUNTER 2022-03-29 08:34 | Outpatient (CLI) | payer MEDICARE, MEDICAID, SELFPAY ==
--- NOTE | 2022-03-29 08:45 | MR_ITS ---
WS: [id number] MRI RIGHT KNEE HISTORY: worsening knee pain 5 weeks COMPARISON: Radiograph 03/01/2022 Anterior cruciate ligament: Mild mucoid degeneration. No full-thickness tear. Posterior cruciate ligament: Intact. Medial collateral ligament: Intact. Posterior lateral corner structures: Intact. Medial menisci: Intact. Normal signal, size and shape. Lateral meniscus: Intact. Normal signal, size and shape. Extensor mechanism: Distal quadriceps tendon and patellar tendons are intact. Fluid and soft tissue: Small joint effusion. Small Kee's cyst. Osseous and articular structures: Patellofemoral compartment: Mild narrowing of patellofemoral joint space. Mild chondromalacia. No mar row edema. Medial compartment: Mild narrowing of the medial compartment. Mild diffuse loss of cartilage. Full-th ickness cartilage defect along the weightbearing surface of the medial femoral condyle measures 5 mm. This full-thickness cartilage defect is near the intercondylar notch. No marrow edema. Lateral compartment: Very mild narrowing of the lateral compartment with superficial fissuring and th inning of the cartilage. No marrow edema. MR/MR knee RT wo con* [id number] IMPRESSION: 1. No ACL tear. 2. No meniscal tear. 3. Mild narrowing medial and lateral compartment. 4. Moderate chondromalacia in the medial compartment with a more focal 5 mm fu ll-thickness cartilage defect involving the femoral condyle. 5. Mild patellofemoral joint space narrowing with chondromalacia. 6. Small joint effusion. 7. Small Kee's cyst.
== END 2022-03-29 08:35 | disposition home or self-care (01) ==
LOC: RAD 08:35
PROVIDERS: PCP Family Medicine; Visit Provider Family Medicine
DX: S83.241A Other tear of medial meniscus, current injury, right knee, initial encounter (principal); X58.XXXA Exposure to other specified factors, initial encounter; M25.461 Effusion, right knee; M71.21 Synovial cyst of popliteal space [Baker], right knee; M94.261 Chondromalacia, right knee
CPT/HCPCS: 73721

== ENCOUNTER → 2022-04-18 10:30 | Outpatient (BNVA) | payer MEDICARE, MEDICAID, SELFPAY | PROVIDERS: PCP Family Medicine; Visit Provider Internal Medicine Cardiovascular Disease | DX: E87.6 Hypokalemia (principal); F10.21 Alcohol dependence, in remission; F17.210 Nicotine dependence, cigarettes, uncomplicated; F31.81 Bipolar II disorder; I42.8 Other cardiomyopathies | CPT/HCPCS: 99213 ==

== ENCOUNTER → 2022-04-25 14:19 | Outpatient (BNVA) | payer MEDICARE, MEDICAID, SELFPAY | PROVIDERS: PCP Family Medicine; Referring Provider Family Medicine; Visit Provider Specialist | DX: M22.41 Chondromalacia patellae, right knee (principal); S83.241A Other tear of medial meniscus, current injury, right knee, initial encounter; X58.XXXA Exposure to other specified factors, initial encounter | CPT/HCPCS: 20610; 73560; 73565; 99213; J1100; J2795; J3301 ==

== ENCOUNTER → 2022-05-03 08:42 | Outpatient (BNVA) | payer MEDICARE, MEDICAID, SELFPAY | PROVIDERS: PCP Family Medicine; Visit Provider Physician Assistant | DX: Z98.1 Arthrodesis status (principal) | CPT/HCPCS: 72100; 99212 ==

== ENCOUNTER → 2022-07-28 08:12 | Outpatient (BNVA) | payer MEDICARE, MEDICAID, SELFPAY | PROVIDERS: PCP Family Medicine; Visit Provider Physician Assistant | DX: Z98.1 Arthrodesis status (principal) | CPT/HCPCS: 72100; 99213 ==

== ENCOUNTER → 2022-08-01 11:20 | Outpatient (BNVA) | payer MEDICARE, MEDICAID, SELFPAY | PROVIDERS: PCP Family Medicine; Visit Provider Obstetrics & Gynecology | DX: N81.10 Cystocele, unspecified (principal) | CPT/HCPCS: 76857 ==

== ENCOUNTER → 2022-09-09 08:17 | Outpatient (BNVA) | payer MEDICARE, MEDICAID, SELFPAY | PROVIDERS: PCP Family Medicine; Visit Provider Nurse Practitioner Family | DX: K13.0 Diseases of lips (principal); L82.1 Other seborrheic keratosis; L82.0 Inflamed seborrheic keratosis; L57.0 Actinic keratosis; L85.3 Xerosis cutis; Z72.0 Tobacco use | CPT/HCPCS: 17000; 17003; 17110; 99213 ==

== ENCOUNTER → 2022-10-17 16:21 | Outpatient (BNVA) | payer MEDICARE, MEDICAID, SELFPAY | PROVIDERS: PCP Family Medicine; Visit Provider Family Medicine | DX: E78.00 Pure hypercholesterolemia, unspecified (principal); R73.9 Hyperglycemia, unspecified; E87.1 Hypo-osmolality and hyponatremia; E87.6 Hypokalemia; D62 Acute posthemorrhagic anemia; E66.9 Obesity, unspecified | CPT/HCPCS: 80053; 80061; 83036; 85025 ==

== ENCOUNTER → 2022-12-07 14:49 | Outpatient (BNVA) | payer MEDICARE, MEDICAID, SELFPAY | PROVIDERS: PCP Family Medicine; Visit Provider Physician Assistant | DX: Z98.1 Arthrodesis status (principal); M70.62 Trochanteric bursitis, left hip; Y93.9 Activity, unspecified | CPT/HCPCS: 72100; 99213 ==

== ENCOUNTER → 2022-12-22 14:34 | Outpatient (BNVA) | payer MEDICARE, MEDICAID, SELFPAY | PROVIDERS: PCP Family Medicine; Visit Provider Emergency Medicine | DX: M25.562 Pain in left knee (principal) | CPT/HCPCS: 73562 ==

== ENCOUNTER → 2023-01-04 15:22 | Outpatient (BNVA) | payer MEDICARE, MEDICAID, SELFPAY | PROVIDERS: PCP Family Medicine; Referring Provider Family Medicine; Visit Provider Specialist | DX: M23.92 Unspecified internal derangement of left knee (principal); S83.241A Other tear of medial meniscus, current injury, right knee, initial encounter; X50.9XXA Other and unspecified overexertion or strenuous movements or postures, initial encounter | CPT/HCPCS: 73560; 73565; 99204 ==

== ENCOUNTER → 2023-01-24 08:09 | Outpatient (BNVA) | payer MEDICARE, MEDICAID, OTHER, SELFPAY | PROVIDERS: PCP Family Medicine; Visit Provider Physician Assistant | DX: Z98.1 Arthrodesis status (principal); M25.562 Pain in left knee; Z98.890 Other specified postprocedural states | CPT/HCPCS: 72100; 99213 ==

== ENCOUNTER 2023-01-31 08:26 | Outpatient (CLI) | payer MEDICARE, MEDICAID, SELFPAY ==
--- NOTE | 2023-01-31 08:45 | MR_ITS ---
WS: [id number] MRI LEFT KNEE HISTORY: Positive mcmurrays COMPARISON: Radiograph 01/04/2023 Anterior cruciate ligament: Small amount of increased T2 signal in the ACL. Fibers are normal course. Posterior cruciate ligament: Intact. Medial collateral ligament: There is a large amount of edema along the medial knee surrounding the MC L but the MCL appears intact. Posterior lateral corner structures: Intact. Medial menisci: Increased T2 signal in the meniscal root of the posterior horn consistent with a tear . Anterior horn is normal. Lateral meniscus: Intact. Normal signal, size and shape. Extensor mechanism: Distal quadriceps tendon and patellar tendons are intact. Fluid and soft tissue: Small suprapatellar joint effusion. There is a large amount of edema surroundi ng the knee. Greatest amount of edema along the medial knee joint. Large Kee cyst. Multiple loculat ions. The cyst extends over a length of at least 5.7 cm. Osseous and articular structures: Patellofemoral compartment: Mild narrowing and mild chondromalacia. Medial compartment: Severe narrowing of the medial compartment with complete loss of cartilage. Janis nal osteophytes. There is a large amount of marrow edema along the tibial plateau extending into the proximal diaphysis. There is an additional small amount of marrow edema along the weightbearing surfa ce of the femoral condyle. Lateral compartment: Mild narrowing of the lateral compartment. Mild chondromalacia. No marrow edema. IMPRESSION: 1. Intact ACL. 2. Large amount of marrow edema along the medial tibial plateau extending into the proximal diaphysis . 3. Severe narrowing medial compartment with loss of cartilage and marrow edema. 4. Tear involving the meniscal root posterior horn medial meniscus. 5. Soft tissue edema surrounding the knee, greatest along the medial compartment. 6. Mild narrowing patellofemoral compartment with mild diffuse chondromalacia.
== END 2023-01-31 08:27 | disposition home or self-care (01) ==
LOC: RAD 08:28
PROVIDERS: PCP Family Medicine; Visit Provider Specialist
DX: M23.92 Unspecified internal derangement of left knee (principal); S83.242A Other tear of medial meniscus, current injury, left knee, initial encounter; X58.XXXA Exposure to other specified factors, initial encounter
CPT/HCPCS: 73721

== ENCOUNTER 2023-02-08 10:44 | Outpatient (CLI) | payer MEDICARE, MEDICAID, SELFPAY | END 2023-02-08 10:45 | disposition home or self-care (01) | LOC: SPT 10:45 | PROVIDERS: PCP Family Medicine; Visit Provider Specialist | DX: Z46.89 Encounter for fitting and adjustment of other specified devices (principal); M25.562 Pain in left knee; M17.11 Unilateral primary osteoarthritis, right knee; M23.92 Unspecified internal derangement of left knee; S83.241A Other tear of medial meniscus, current injury, right knee, initial encounter; X50.9XXA Other and unspecified overexertion or strenuous movements or postures, initial encounter; Y93.02 Activity, running | CPT/HCPCS: 97760; 99214; L1812 ==

== ENCOUNTER 2023-02-22 11:54 | Outpatient (CLI) | payer MEDICARE, MEDICAID, SELFPAY ==
--- NOTE | 2023-02-22 12:00 | CT_ITS ---
WS: [id number] CT LEFT KNEE, NONCONTRAST HISTORY: left knee pain Technique: All CT scans at [facility] use at least one of these dose optimization techniques: automated exposure control; mA and/or kV adjustment per patient size (includes targeted exams where dose is matched to clinical indication); or iterative reconstruction. DLP: 279.19 mGy.cm COMPARISON: Radiographs 01/04/2023. Prior MRI 01/31/2023 No acute fractures. Increased bony sclerosis involving the medial tibial plateau extending in to the metaphysis. No acute fracture is identified. There is evidence for trabecular injury and marrow edema . Very slight irregularity involving the cortex of the anterior medial tibial plateau. Mild narrowin g of the medial joint. Mild soft tissue edema surrounding the knee. There is a small suprapatellar joint effusion. Moderate- sized Kee's cyst extends over a length of 4.9 cm. No loose bodies are identified in the joint space . Soft tissue appearance of the ACL and PCL are normal. IMPRESSION: 1. Sclerosis involving the medial tibial plateau and metaphysis. Consistent with a healing trabecular injury. Slight cortical irregularity involving the anterolateral tibial plateau could be a healing f racture. There is no displacement. 2. Small suprapatellar joint effusion and moderate size Kee's cyst. 3. No loose body in the joint space.
== END 2023-02-22 11:55 | disposition home or self-care (01) ==
PROVIDERS: PCP Family Medicine; Visit Provider Specialist
DX: M25.562 Pain in left knee (principal); M89.9 Disorder of bone, unspecified; M25.462 Effusion, left knee; M71.22 Synovial cyst of popliteal space [Baker], left knee; L82.0 Inflamed seborrheic keratosis; L57.0 Actinic keratosis
CPT/HCPCS: 17000; 17110; 73700; 99213

== ENCOUNTER 2023-03-01 12:20 | Outpatient (CLI) | payer MEDICARE, MEDICAID, SELFPAY | END 2023-03-01 12:21 | disposition home or self-care (01) | PROVIDERS: PCP Family Medicine; Visit Provider Nurse Practitioner | DX: Z46.89 Encounter for fitting and adjustment of other specified devices (principal); S82.142D Displaced bicondylar fracture of left tibia, subsequent encounter for closed fracture with routine healing; X58.XXXD Exposure to other specified factors, subsequent encounter; S82.132D Displaced fracture of medial condyle of left tibia, subsequent encounter for closed fracture with routine healing | CPT/HCPCS: 27532; 97760; 99214; L1832 ==

== ENCOUNTER → 2023-03-13 13:42 | Outpatient (BNVA) | payer MEDICARE, MEDICAID, SELFPAY | PROVIDERS: PCP Family Medicine; Visit Provider Family Medicine | DX: E78.00 Pure hypercholesterolemia, unspecified (principal); I25.10 Atherosclerotic heart disease of native coronary artery without angina pectoris | CPT/HCPCS: 80053; 80061; 85025 ==

== ENCOUNTER → 2023-04-03 10:41 | Outpatient (BNVA) | payer MEDICARE, MEDICAID, OTHER, SELFPAY | PROVIDERS: PCP Family Medicine; Visit Provider Nurse Practitioner | DX: M25.562 Pain in left knee (principal); S82.132D Displaced fracture of medial condyle of left tibia, subsequent encounter for closed fracture with routine healing; X58.XXXD Exposure to other specified factors, subsequent encounter; M17.12 Unilateral primary osteoarthritis, left knee | CPT/HCPCS: 73562; 99213 ==

== ENCOUNTER 2023-04-04 12:41 | Observation (INO) | payer MEDICARE, MEDICAID, SELFPAY ==
--- NOTE | 2023-03-27 13:19 | ANES.PREANE2 ---
Pre-Anesthetic Assessment Height/Weight: Height 1.63 m Operation Date: 04/04/23 07:00 Proposed Procedures p Anterior Colporrhaphy(Not Applicable) - Cirilo Glez MD s Posterior Colporrhaphy(Not Applicable) - Cirilo Glez MD s Anterior and posterior colporrhaphy 06722, single incision sling 49109, N81.6, N81.10(Not Applicable) - Cirilo Glez MD Familial anesthetic complications: hx Vtach Social No alcohol and No tobacco Exam alert, oriented x 3, clear to auscultation bilaterally and regular rate & rhythm Airway Mallampati: Class II Dentition: false Pulmonary None reported CV/HEM Arrythmia and Hypertension None reported Hepatic None reported GI Gastroesophageal Reflux Disease Metabolic None reported Neuropsych None reported Anesthetic Plan ASA status: 2 Anesthesia: General Risk of > 500 ml blood loss (7ml/kg in children): No Medications/Allergies Home Medications Medication Instructions Recorded Confirmed Last Taken Type hydroxyzine pamoate 50 mg capsule 50 mg PO BID PRN anxiety #180 caps 05/31/22 03/27/23 Unknown Rx (Vistaril) hydrochlorothiazide 25 mg tablet 25 mg PO DAILY@0500 #90 tabs 07/11/22 03/27/23 03/27/23 Rx oxybutynin chloride 5 mg 5 mg PO DAILY #30 tabs 10/28/22 03/27/23 03/27/23 Rx tablet,extended release 24 hr lamotrigine 200 mg tablet 200 mg PO .5 pm #90 tabs 01/19/23 03/27/23 03/27/23 Rx (Lamictal) vortioxetine 20 mg tablet 20 mg PO QAM #30 tabs 01/19/23 03/27/23 03/27/23 Rx (Trintellix) potassium chloride 10 mEq 10 meq PO TID #90 caps 01/27/23 03/27/23 03/27/23 Rx capsule,extended release hinge knee brace #1 ea 02/08/23 03/27/23 Unknown Rx lamotrigine 25 mg tablet (Lamictal) 25 mg PO .morning 02/23/23 03/27/23 03/27/23 History trazodone 100 mg tablet 100 mg PO BEDTIME PRN insomnia #30 02/23/23 03/27/23 03/26/23 Rx tabs Bledso ROM Knee Brace #1 ea 03/01/23 03/27/23 Unknown Rx omeprazole 20 mg capsule,delayed 20 mg PO BID #60 caps 03/08/23 03/27/23 03/27/23 Rx release phentermine 37.5 mg tablet 37.5 mg PO DAILY #30 tabs 03/08/23 03/27/23 03/27/23 Rx atorvastatin 20 mg tablet 20 mg PO DAILY 03/27/23 03/27/23 03/27/23 History meloxicam 15 mg tablet 15 mg PO DAILY 03/27/23 03/27/23 03/26/23 History quetiapine 50 mg tablet (Seroquel) 50 mg PO BEDTIME 03/27/23 03/27/23 03/26/23 History Allergies Allergy/AdvReac Type Severity Reaction Status Date / Time codeine Allergy Unknown Unknown Verified 03/27/23 12:58 meperidine [From Demerol] Allergy Unknown Unknown Verified 03/27/23 12:58 Penicillins Allergy Unknown Unknown Verified 03/27/23 12:58 prochlorperazine Allergy Unknown Unknown Verified 03/27/23 12:58 [From Compazine] [facility] Anesthesia Medical History Alcohol dependence in sustained full remission Atherosclerosis of coronary artery Bipolar II disorder Generalized anxiety disorder Hypercholesterolemia Hypertension Nicotine dependence, cigarettes, uncomplicated No pertinent past medical history neghx: dm,thyroid,dvt/pe PCP: Dr. Gallardo Non morbid obesity Nonischemic cardiomyopathy Psychiatric care Solar aging of skin Trimalleolar fracture of right ankle Surgical History H/O: hysterectomy (~1986) took ovaries, she reports she had this done due to heavy cycles History of lumbar fusion (~01/2022) Hx laparoscopic cholecystectomy (~1979) Family History Daughter Breast cancer dx age 30 Denies family history of Colon cancer Ovarian cancer Diabetes Heart disease Hypercholesteremia Hypertension Uterine cancer Thyroid disease Stroke Data Anesthesia Cardiac Studies: Echocardiogram 12/23/21
[2023-04-04] VITALS (16 sets, daily range): BP systolic 111–155; BP diastolic 58–78; PULSE 68–100; RESP 16–24; TEMP 36.3–36.8; O2SAT 92–100; BMI 26.1
[2023-04-04] MEDS: scopolamine 1.5 Patch 1 PATCH TRANSDERMA (08:48)
[2023-04-04] MEDS: enoxaparin 30 mg/0.3 mL Syringe SUBCUT (08:49)
[2023-04-04] MEDS: vancomycin 1,000 MG in sodium chloride 0.9% 250 ML 250 MG IV (08:49)
[2023-04-04] MEDS: sodium chloride 0.9% 1,000 ML 30 ML IV (09:07)
[2023-04-04] MEDS: sodium chloride 0.9% 500 ML IV (09:10)
--- NOTE | 2023-04-04 09:37 | ECG_ITS ---
Test Date: 2023-04-04 Pat Name: Rloa Morton Department: Room: Gender: Female 911 Operator: : 1955 Requested By: Cirilo Elizabeth Order Number: [id number] German MD: Blaine Valerio M.D. Measurements Intervals [place] Rate: 65 P: 32 OH: 203 QRS: -3 QRSD: 102 T: 57 QT: 431 QTc: 450 Interpretive Statements SINUS RHYTHM LOW QRS VOLTAGE IN PRECORDIAL LEADS [QRS DEFLECTION < 1.0 mV IN CHEST LEADS] Compared to ECG 12/22/2021 13:43:26 Low QRS voltage now present Electronically Signed On 04-04-2023 14:32:21 DRAGLINE MECHANIC by Blaine Valerio M.D. [id number]
--- NOTE | 2023-04-04 09:56 | P.ANESUD_ITS ---
Pre-Anesthetic Update Pre-Anesthetic Assessment: Date of Surgery/Procedure: 04/04/23 Preop Pita gnosis: Cystocele, rectocele, mixed incontinence Proposed Procedure: Operation Date: 04/04/23 10:05 Proposed Procedures p Anterior Colporrhaphy(Not Applicable) - Cirilo Glez MD s Posterior Colporrhaphy(Not Applicable) - Cirilo Glez MD s Anterior and posterior colporrhaphy 53302, single incision sling 79950, N81.6, N81.10(Not Applicable) - Cirilo Glez MD Any changes to Pre-Anesthetic Assessment?: No Last Intake: Intake Last Liquid Date 04/03/23 Last Liquid Time 22:00 Last Solid Date 04/03/23 Last Solid Time 22:00 Labs Last 48hrs: Blood Bank 04/04/23 08:57 Blood Type Cancelled Rho(D) Type Cancelled Antibody Screen Cancelled Vitals: Temperature 97.6 F 04/04/23 08:43 Temperature Source Temporal Artery S can 04/04/23 08:43 Pulse Rate 68 04/04/23 08:43 Pulse Rhythm Regular 04/04/23 08:44 Pulse Strength 3+ Normal 04/04/23 08:44 Respiratory Rate 16 04/04/23 08:43 Blood Pressure 155/73 04/04/23 08:43 Blood Pressure Meghan n 100 04/04/23 08:43 Pulse Oximetry 96 04/04/23 08:43 Oxygen Delivery Me thod Room Air 04/04/23 08:44 Exam: Pre-Anes Outpt Exam: alert, oriented x 3, clear to auscultation bilaterally and regular rate & rhythm Cardiac Studies: Echocardiogram 12/23/21
--- NOTE | 2023-04-04 10:05 | W.PM.OPSUD ---
Surgery/Procedure H&P Update DATE OF PROCEDURE: April 04, 2023 DATE H&P PERFORMED: 03/17/23 H&P UPDATE INFORMATION: I have reviewed H&P completed within last 30 days, I have examined patient prior to procedure and No changes to prior documentation PREOP DIAGNOSIS: Cystocele, rectocele, mixed incontinence PLANNED PROCEDURE: Operation Date: 04/04/23 10:05 Proposed Procedures p Anterior Colporrhaphy(Not Applicable) - Cirilo Glez MD s Posterior Colporrhaphy(Not Applicable) - Cirilo Glez MD s Anterior and posterior colporrhaphy 78739, single incision sling 31063, N81.6, N81.10(Not Applicable) - Cirilo Glez MD
[2023-04-04 11:33] LABS: Add Urine Microscopic? YES; Bilirubin Urine Neg (Negative); Blood Urine 2+ (Negative); Glucose Urine UA Norm (Normal); Ketones Urine Negative (Negative); Leukocyte Esterase Urine Negative (Negative); Nitrate Urine Negative (Negative); Protein Urine 1+ (Negative); RBC Urine 0-4 /hpf (0-2); Squamous Epithelial Cell Urine 0-4 /hpf (0-5); Urine Appearance Clear (CLEAR); Urine Color Yellow (Yellow); Urobilinogen Urine Neg (Negative); WBC Urine 0-4 /hpf (0-5); pH Urine 6 (5-7)
[2023-04-04 11:34] LABS: Add Urine Culture? No; Bacteria Urine TRACE /hpf; Hyaline Casts Urine 0-4 /lpf; Mucus Urine 1+ /hpf
[2023-04-04] MEDS: lidocaine-epi 2% 20 mL INJ INJECTION (11:49)
[2023-04-04] MEDS: estrogens Conjugated Cream 30 gm 1 APPLIC VAGINAL (11:50)
--- NOTE | 2023-04-04 12:10 | PM.OP ---
Operative Report Date of procedure: April 04, 2023 Pre-op diagnosis: Rectocele cystocele urinary incontinence Post-op diagnosis: same Procedure done: Single incision midurethral sling Posterior colporrhaphy Cystoscopy Surgeon: Cirilo Glez MD Estimated blood loss (mL): 400 IV fluids (mL): 1,000 Urine output (mL): 500 Complications: None Procedure: After obtaining informed consent, the patient was taken to the operating room and placed in the supine position, given general anesthesia, and prepped and draped in sterile fashion. The abdomen, vulva and vagina were prepped and draped in a sterile manner. A time out procedure was performed. The anterior vaginal mucosa beneath the midurethra was infiltrated with 0.5% Marcaine with epinephrine. A vertical midline incision was made beneath the midurethra, nearly 1.5 cm length. Careful submucosal dissection was performed bilaterally up to the interior portion of the inferior pubic ramus. The insertion of adductor longus tendon on the patient?s pubic ramus was identified as reference land ana. Palpated the notch along the internal edge of ischiopubic ramus where the adductor longus tendon and the inferior pubic ramus meet. The Altis single incision sling (SIS) was selected. Then the needle of the SIS inserted aiming at the location of this notch. One of the integrated self-fixating tips place onto the needle by sliding it over the end of the needle. The needle/sling assembly was inserted toward the location of identified reference notch making sure that the flat of the handle is perpendicular to the desired path. The needle was tracked along the posterior surface of the ischiopubic ramus until the midline ana on the mesh is approximately at the midline position under the urethra. The needle was removed and the same was repeated on the contralateral side until the appropriate sling tension under the urethra was achieved ensuring that the mesh lays flat. The needle was removed and vaginal incision was closed in a running interlocking fashion with 2-0 Vicryl. Then it was observed cystsocele resolved and no anteriror colporrhaphy was needed. Then proceeded to perform the posterior colporrhaphy. A dilute 2% lidocaine with epinephrine solution was infiltrated under the posterior vaginal mucosa midline and into the perineal body. An inverted triangle was cut in the perineum. The posterior vaginal wall was opened vertically and midline up to the apex of the rectocele. The cut edges were held and splayed laterally with a series of Allis clamp. The open vaginal mucosa was then dissected laterally with a combination of sharp and blunt dissection, exposing the perirectal fascia. The perirectal fascia was then reapproximated with interrupted #2-0 Vicryl sutures to draw the lateral folds together and tuck the rectocele back. Deep interrupted sutures of #0 Vicryl were used to reapproximate the fibers of the levator ani muscles. The excess vaginal mucosa was trimmed. The posterior vaginal wall was closed with a running locked #0 Vicryl to the hymenal tags. The superficial perineal muscles were closed with running unlocked #0 Vicryl and the perineal skin was closed with running subcuticular #2-0 Vicryl. Then the Masters catheter was removed and cystoscope was inserted. The bladder was filled with sterile water. Complete evaluation of the bladder mucosa was performed noting no lacerations, dimpling, tears, bleeding of the mucosa or muscular layers. Both ureteral orifices were identified. Prompt excretion of urine from both ureteral orifices was noted. Cystoscope was withdrawn. The Masters catheter was replaced. Excellent hemostasis was obtained. A vaginal pack is placed overnight as postoperative support for the vaginal tissues after graft placement and closure of vaginal incisions. Sponge, lap, needle, and instrument counts were correct times three. The patient was taken to the recovery room, awake and in stable condition.
--- NOTE | 2023-04-04 13:03 | PC.NURSE ---
1245 - Report called to MARC Ceballos - notified nurse of pt vag packing with premarin cream
[2023-04-04] MEDS: alum-mag-hydroxide-sime 30 mL UDC PO (13:18)
[2023-04-04] MEDS: dextrose 5%-lactated ringers 1,000 ML 125 ML IV (13:19)
[2023-04-04] MEDS: ketorolac 30 mg/mL INJ IVP ×2 (13:20→19:48)
--- NOTE | 2023-04-04 13:43 | ANE.PACU2 ---
Inpatient post-anesthesia follow up: Airway intact: Yes Vital signs: Temperature 98.0 F Pulse Rate 82 Respiratory Rate 20 Blood Pressure 111/78 Pulse Oximetry 92 Oxygen Delivery Me thod Room Air Oxygen Flow Rate 6 Fraction of Inspir ed Oxygen Hydration adequate: Yes Nausea and vomiting: No Pain level: 2 Mental status: Baseline
[2023-04-04] MEDS: HYDROcodone-acetaminophen 5-325 mg Tablet PO ×2 (14:25→21:34)
[2023-04-04] MEDS: potassium chloride ER 10 mEq Tablet PO ×2 (16:04→21:34)
[2023-04-04] MEDS: lamoTRIgine 100 mg Tablet 200 MG PO (17:28)
[2023-04-04] MEDS: docusate sodium 100 mg Capsule PO (17:29)
[2023-04-04] MEDS: pantoprazole DR 40 mg Tablet PO (17:29)
[2023-04-04] MEDS: quetiapine 25 mg Tablet 50 MG PO (21:34)
[2023-04-05] MEDS: ketorolac 30 mg/mL INJ IVP (01:53)
[2023-04-05 05:16] VITALS: BP 92/58; PULSE 78; RESP 16; TEMP 36.5; O2SAT 93
--- NOTE | 2023-04-05 05:28 | PC.NURSE ---
At this time Selena Almaraz RN and Sandy Sunshine RN removed urinary catheter and vaginal packing.
[2023-04-05 05:36] LABS: Hematocrit 27.2 % (36-47); Mean Corpuscular HGB Conc 33.8 g/dL (30-55); Mean Corpuscular Hemoglobin 29.7 pg (27-33); Mean Corpuscular Volume 87.7 fl (85-98); Platelet Count 250 10^3/cmm (157-399); Red Cell Distribution Width 12.6 % (12.1-15.1); White Blood Count 12.48 10^3/uL (3.29-11.43)
--- NOTE | 2023-04-05 06:23 | PC.NURSE ---
Patient voided 50 ml. with 9 ml bladder scanned after void
[2023-04-05] MEDS: HYDROcodone-acetaminophen 5-325 mg Tablet PO (06:54)
[2023-04-05] MEDS: docusate sodium 100 mg Capsule PO (08:55)
[2023-04-05 08:57] VITALS: BP 109/55; PULSE 73; RESP 15; TEMP 36.2; O2SAT 95
--- NOTE | 2023-04-05 09:12 | P.DS_ITS ---
Discharge Providers FRAMING MANAGER Date of Admission: 04/04/23 12:41 Date of Discharge: 04/05/23 Attending Provider at Admission: Cirilo Glez MD Attending Provider at Discharge: Cirilo Glez MD Primary Care Provider: Sven Gallardo MD Reason for Visit Reason for Visit: N81.10, N81.6 Hospital Course Hospital Course Mrs. Morton 68-year-old female, post hysterectomy with a history of cystocele stage I with mixed urinary incontinence and rectocele stage III. She was admitted for planned anterior colporrhaphy with single incision mid urethral sling and posterior colporrhaphy. After the single incision mid urethral sling the mild cystocele resolved and no anterior colporrhaphy was needed. Then the posterior colporrhaphy was performed without complications. Overnight observation uneventful. She is afebrile and hemodynamically stable postoperative day 1. Ambulating without difficulty. Tolerating diet well. She was counseled regarding pelvic rest for 6 weeks (no sex, no tampons, no vaginal douches). Return to the emergency room if any fever, increased bleeding or pain. Physical Exam Narrative: GA: Alert and oriented ?3. HEENT: WNL. Heart: Regular rate and rhythm. Lungs: Clear to auscultation bilaterally. Abdomen: Bowel sounds present, nontender, minimal tenderness, incision clean and dry, no redness, pain or edema. PURCHASING EXPEDITOR: No bleeding. Extremities: No edema, no cyanosis, no calves pain. Urinary Catheter Management: Masters: Cath Placed During This Visit: yes, but has since been removed by the nurse Reason for Continuing Indwelling Catheter: Decision to DC Catheter Urinary Catheter Date of Insertion: 04/04/23 Urinary Catheter Time of Insertion: 10:30 Date Urinary Catheter Removed: 04/05/23 Time Urinary Catheter Discontinued: 05:27 History History History 4 Term 3 0 Miscarriages/Ectopic 1 Living Children 2 Discharge Data Studies Completed and Pending Laboratory Results WBC 12.48 10^3/uL (3.29-11.43) H 04/05/23 05:29 RBC 3.10 10^6/uL (3.85-5.65) L 04/05/23 05:29 Hgb 9.20 g/dL (11.27-16.99) L 04/05/23 05:29 Hct 27.2 % (36-47) L 04/05/23 05:29 MCV 87.7 fl (85-98) 04/05/23 05:29 MCH 29.7 pg (27-33) 04/05/23 05:29 MCHC 33.8 g/dL (30-55) 04/05/23 05:29 RDW 12.6 % (12.1-15.1) 04/05/23 05:29 Plt Count 250 10^3/cmm (157-399) 04/05/23 05:29 MPV 9.0 fL (7.4-10.4) 04/05/23 05:29 Urine Color Yellow (Yellow) 04/04/23 10:15 Urine Appearance Clear (CLEAR) 04/04/23 10:15 Urine pH 6 (5-7) 04/04/23 10:15 Ur Specific Sawyer 1.020 (1.005-1.030) 04/04/23 10:15 Urine Protein 1+ (Negative) H 04/04/23 10:15 Urine Glucose (UA) Norm (Normal) 04/04/23 10:15 Urine Ketones Negative (Negative) 04/04/23 10:15 Urine Blood 2+ (Negative) H 04/04/23 10:15 Urine Nitrate Negative (Negative) 04/04/23 10:15 Urine Bilirubin Neg (Negative) 04/04/23 10:15 Urine Urobilinogen Neg mg/dL (Negative) 04/04/23 10:15 Ur Leukocyte Esterase Negative (Negative) 04/04/23 10:15 Urine RBC 0-4 /hpf (0-2) H 04/04/23 10:15 Urine WBC 0-4 /hpf (0-5) H 04/04/23 10:15 Ur Squamous Epith Cells 0-4 /hpf (0-5) H 04/04/23 10:15 Amorphous Sediment Not Reportable 04/04/23 10:15 Urine Bacteria Trace /hpf (NONE) 04/04/23 10:15 Hyaline Casts 0-4 /lpf H 04/04/23 10:15 Urine Mucus 1+ /hpf 04/04/23 10:15 Blood Type O Positive 04/04/23 09:18 Rho(D) Type Rh positive 04/04/23 09:18 Antibody Screen Negative 04/04/23 09:18 Vitals Last Vital Signs Temp 97.1 F L 04/05/23 08:57 Pulse 73 04/05/23 08:57 Resp 15 04/05/23 08:57 BP 109/55 04/05/23 08:57 Pulse Ox 95 04/05/23 08:57 O2 Del Method Room Air 04/05/23 08:57 O2 Flow Rate 6 04/04/23 12:18 Results Labs OB ([facility]): Blood Type O Positive 04/04/23 Antibody Screen Negative 04/04/23 Hct 27.2 % (36-47) L 04/05/23 Hgb 9.20 g/dL (11.27-16.99) L 04/05/23 Rho(D) Type Rh positive 04/04/23 Plt Count 250 10^3/cmm (157-399) 04/05/23 Hemoglobin A1c 5.0 % (4.0-6.0) 10/17/22 Discharge Plan Discharge Patient Disposition: Home Condition: Stable Prescriptions: New hydrocodone-acetaminophen 5-325 mg tablet 1 tab PO Q4H PRN (Reason: pain) Qty: 20 0RF acetaminophen 325 mg capsule 325 mg PO Q4H PRN (Reason: fever or pain) Qty: 60 0RF ibuprofen 800 mg tablet 800 mg PO TID PRN (Reason: pain) Qty: 60 0RF docusate sodium [Colace] 100 mg capsule 100 mg PO BID Qty: 60 0RF Continued hydroxyzine pamoate [Vistaril] 50 mg capsule 50 mg PO BID PRN (Reason: anxiety) Qty: 180 2RF Rx Instructions: Take one capsule twice per day as needed for anxiety trazodone 100 mg tablet 100 mg PO BEDTIME PRN (Reason: insomnia) Qty: 30 3RF Rx Instructions: May take one tablet at bedtime as needed for sleep lamotrigine [Lamictal] 25 mg tablet 25 mg PO .morning Rx Instructions: Take one tablet in morning x 7 days then discontinue-last dose on 03/01/23 meloxicam 15 mg tablet 15 mg PO DAILY Qty: 90 0RF Rx Instructions: TAKE 1 TABLET BY MOUTH EVERY DAY phentermine 37.5 mg tablet 37.5 mg PO DAILY Qty: 30 0RF omeprazole 20 mg capsule,delayed release(DR/EC) 20 mg PO BID Qty: 60 5RF oxybutynin chloride 5 mg tablet extended release 24hr 5 mg PO DAILY Qty: 30 6RF lamotrigine [Lamictal] 200 mg tablet 200 mg PO .5 pm Qty: 90 2RF Rx Instructions: Take one tablet at 5 pm Trintellix 20 mg tablet 20 mg PO QAM Qty: 30 6RF (DME) hinge knee brace See Rx Instructions .Route .MEDSUPPLY Qty: 1 0RF Rx Instructions: As directed (DME) Bledso ROM Knee Brace See Rx Instructions .Route .MEDSUPPLY Qty: 1 0RF Rx Instructions: As directed hydrochlorothiazide 25 mg tablet 25 mg PO DAILY@0500 Qty: 90 3RF potassium chloride 10 mEq capsule, extended release 10 meq PO TID Qty: 90 3RF atorvastatin 20 mg tablet 20 mg PO DAILY Rx Instructions: TAKE 1 TABLET BY MOUTH EVERY DAY quetiapine [Seroquel] 50 mg tablet 50 mg PO BEDTIME Rx Instructions: Take one tablet at bedtime Discharge Orders: Discharge Order (Routine); Ordered 04/05/23 Ordered By: Cirilo Glez Referrals: Cirilo Glez MD [Physician] - 04/19/23 11:00 am (Two week check up on April 19 at 11:00am Six week check up on at 2:30pm) Discharge Diet: GI Soft and Soft Mechanical Discharge Activity: Limit activity as instructed Patient Instructions: Bladder Sling for Women (DC), OB Discharge Report, OB Food/Drug Interaction Guide, Opioid Safety, Posterior Vaginal Repair (GEN) Activity Restrictions/Additional Instructions: 1. Please call [facility] on next working day to make your post-operative appointment in 2 weeks. 2. Please stay home until you come back to the clinic on first post- hospatilization check up. 3. Please follow instructions on your medications CAREFULLY. 4. If you have abdominal incision, do not cover it unless dressing is necessary because of drainage. OK to shower, but avoid bath. Leave steri-strips until they fall off. If they are still on one week after surgery, you may remove them. 5. If you had vaginal surgery or vaginal repair, Dr. Glez may instruct you to take SITZ bath. 6. Yellow, blood tinged odorous vaginal discharge is usually normal after hysterectomy or vaginal surgeries. 7. No SEXUAL INTERCOURSE, tampons, or douches until you are completely released from the post-operative care. 8. Avoid constipation by eating right and maybe using some Metamucil or Milk of Magnesia. 9. All prescription refills are given during the working hours. Please do no wait till it runs out. Call the clinic at [phone] before your medication runs out. The clinic will get in touch with your doctor to prescribe medications if necessary. 10. Please remain within 40 mile radius from our hospital because emergencies do happen now and then during the post-operative period. 11. If you have stairs at home, take one step at a time slowly and minimize the number of trips. It helps to stay in one floor for the next few days. No lifting except what you can lift by one hand until you are released from the post-operative care. 12. Driving is discouraged until you are well healed. It may be 3-4 weeks before you feel strong enough to drive. You should be able to turn and look through the rear window without pain and you should be able to push the brake pedal very hard without pain before you drive. No fast rules, but SAFETY should be your primary concern. DO NOT drive if you are on sedating medications such as narcotics. 13. Call the clinic (during working hours) to make urgent appointment or go to the Emergency room, if any of the following occurs: i. Vaginal bleeding becomes heavy, more than a period. ii. Incision becomes red and sore, or drains pus. iii. Your TEMPERATURE is over 100.4F or you have chill. iv. IV site becomes red and swollen (a little ``knot?? is usually OK) v. Persistent nausea and vomiting vi. Persistent constipation or diarrhea vii. Rash or allergic reaction to medications. Discharge Attestations FRAMING MANAGER Time Spent in Discharge Care*: greater than 30 min Coding Level of Care Code Acute Code for Chg Fwd Diagnoses
--- NOTE | 2023-04-05 10:29 | PC.NURSE ---
PVR done 04-05-23 @1002 104ml of residual urine left.
[2023-04-05 10:40] VITALS: BP 119/58; PULSE 67; RESP 15; TEMP 36.6; O2SAT 97
== END 2023-04-05 10:41 | disposition home or self-care (01) ==
LOC: OBGYN 12:41
PROVIDERS: Admitting Provider Obstetrics & Gynecology; PCP Family Medicine; Visit Provider Obstetrics & Gynecology
PROC: 0JQC0ZZ Repair Pelvic Region Subcutaneous Tissue and Fascia, Open Approach (ICD-10-PCS; CPT 57240; principal; 2023-04-04 10:05)
PROC: (CPT 57250; 2023-04-04 10:05)
PROC: (CPT 57288; 2023-04-04 10:05)
DX: N81.10 Cystocele, unspecified (principal); R32 Unspecified urinary incontinence; N81.6 Rectocele; I10 Essential (primary) hypertension; K21.9 Gastro-esophageal reflux disease without esophagitis; I25.10 Atherosclerotic heart disease of native coronary artery without angina pectoris
CPT/HCPCS: 57250; 57267; 57288; 36415; 51798; 81001; 85027; 86850; 86900; 93005; 93010; 96374; 96376; C1713; G0378; J1100; J1650; J1885; J2405; J2704; J2710; J3010; J3370; J3490; J7030; J7040; J7050; J7121; Q9968

== ENCOUNTER → 2023-05-03 12:56 | Outpatient (BNVA) | payer MEDICARE, MEDICAID, SELFPAY | PROVIDERS: PCP Family Medicine; Visit Provider Nurse Practitioner | DX: M17.12 Unilateral primary osteoarthritis, left knee | CPT/HCPCS: 73560; 73565; 99214 ==

== ENCOUNTER → 2023-05-04 15:33 | Outpatient (BNVA) | payer MEDICARE, MEDICAID, SELFPAY | PROVIDERS: PCP Family Medicine; Visit Provider Internal Medicine | DX: I47.20 Ventricular tachycardia, unspecified (principal); F10.21 Alcohol dependence, in remission; F17.210 Nicotine dependence, cigarettes, uncomplicated; F31.81 Bipolar II disorder; I42.8 Other cardiomyopathies | CPT/HCPCS: 99214 ==

== ENCOUNTER → 2023-05-22 15:07 | Outpatient (BNVA) | payer MEDICARE, MEDICAID, SELFPAY | PROVIDERS: PCP Family Medicine; Visit Provider Obstetrics & Gynecology | DX: Z98.890 Other specified postprocedural states (principal); Z79.899 Other long term (current) drug therapy | CPT/HCPCS: 85025 ==

== ENCOUNTER 2023-08-15 08:40 | Outpatient (CLI) | payer MEDICARE, MEDICAID, SELFPAY ==
--- NOTE | 2023-08-15 09:00 | MM_ITS ---
WS: [id number] BILATERAL 3D TOMOSYNTHESIS DIGITAL SCREENING MAMMOGRAPHY WITH CAD CLINICAL INFORMATION: Z12.31 - Encounter for screening mammogram for malignant ... HISTORY: Screening mammogram. No current complaints. COMPARISON: 2008 TECHNIQUE: Bilateral CC and MLO views. FINDINGS: Scattered fibroglandular densities bilaterally. No suspicious focal mass, asymmetry, calcifications, or architectural distortion. No evidence of malignancy. Incidental punctate calcifications. Vascular calcifications. IMPRESSION: MM/[place] [id number] BI-RADS: 2-Benign FOLLOW UP: 1 Year Follow-up Recommend return to annual screening mammography.
== END 2023-08-15 08:41 | disposition home or self-care (01) ==
PROVIDERS: PCP Family Medicine; Visit Provider Obstetrics & Gynecology
DX: Z12.31 Encounter for screening mammogram for malignant neoplasm of breast (principal)
CPT/HCPCS: 77063; 77067

== ENCOUNTER → 2023-08-16 12:44 | Outpatient (BNVA) | payer MEDICARE, MEDICAID, SELFPAY | PROVIDERS: PCP Family Medicine; Visit Provider Nurse Practitioner Psychiatric/Mental Health | DX: Z79.899 Other long term (current) drug therapy (principal) | CPT/HCPCS: 80053; 80061; 82306; 82607; 83036; 83540; 85025 ==

== ENCOUNTER → 2023-11-23 13:06 | Outpatient (BNVA) | payer MEDICARE, MEDICAID, OTHER, SELFPAY | PROVIDERS: PCP Family Medicine; Visit Provider Family Medicine | DX: E03.9 Hypothyroidism, unspecified (principal); E53.8 Deficiency of other specified B group vitamins; F31.81 Bipolar II disorder; E66.9 Obesity, unspecified; E78.00 Pure hypercholesterolemia, unspecified | CPT/HCPCS: 82607; 84443 ==

== ENCOUNTER → 2024-01-08 07:32 | Outpatient (BNVA) | payer MEDICARE, MEDICAID, SELFPAY | PROVIDERS: PCP Family Medicine; Referring Provider Nurse Practitioner Psychiatric/Mental Health; Visit Provider Psychiatry & Neurology Neurology | DX: G25.0 Essential tremor (principal); E53.8 Deficiency of other specified B group vitamins; I51.89 Other ill-defined heart diseases; F10.20 Alcohol dependence, uncomplicated; G25.9 Extrapyramidal and movement disorder, unspecified | CPT/HCPCS: 99203; 99204 ==

== ENCOUNTER → 2024-01-11 09:41 | Outpatient (BNVA) | payer MEDICARE, MEDICAID, SELFPAY | PROVIDERS: PCP Family Medicine; Visit Provider Nurse Practitioner Family | DX: L57.0 Actinic keratosis (principal); L82.1 Other seborrheic keratosis; L81.4 Other melanin hyperpigmentation; D22.5 Melanocytic nevi of trunk; L57.8 Other skin changes due to chronic exposure to nonionizing radiation | CPT/HCPCS: 17000; 99213 ==

== ENCOUNTER 2024-02-06 12:45 | Outpatient (CLI) | payer MEDICARE, MEDICAID, SELFPAY ==
--- NOTE | 2024-02-06 13:00 | MR_ITS ---
WS: [id number] MRI BRAIN WITH AND WITHOUT CONTRAST HISTORY: G25.0 - Essential tremor COMPARISON: None available. TECHNIQUE: Multiplanar imaging performed through the brain with MultiHance 13 ml's IV. No acute infarcts are seen. Delgado-white matter differentiation is well preserved. No susceptibility artifacts or prior lacunar infarcts. Ventricles and extra-axial spaces are normal. Clivus and pituitary gland are normal. Visualized posterior fossa and brainstem are also normal. Postcontrast images are negative for masses or vascular malformations. Dural venous sinuses are normal. Paranasal sinuses: Mild mucoperiosteal thickening. No air-fluid levels. Mastoid air cells: Normal. Calvarium and scalp: Normal. MR/MR head wo/w con [id number] IMPRESSION: 1. No acute infarct or mass. No hemorrhage. 2. No significant volume loss. No prior infarct. No significant small vessel d isease.
== END 2024-02-06 12:46 | disposition home or self-care (01) ==
LOC: RAD 12:46
PROVIDERS: PCP Family Medicine; Visit Provider Psychiatry & Neurology Neurology
DX: G25.0 Essential tremor (principal)
CPT/HCPCS: 70553

== ENCOUNTER 2024-02-08 08:34 | Outpatient (CLI) | payer MEDICARE, MEDICAID, SELFPAY ==
--- NOTE | 2024-02-08 08:45 | USCV_ITS ---
Rola Morton Age: 69 Gender: F : 1955 Exam Date: 02/08/2024 08:52 Ordering Phys: Vikas Noble MD Technologist: [facility] Exam Location: [facility] [place] Indication: tremors Risk Factors: Previous Vascular Surgery: Right Brachial BP: / Left Brachial BP: / Right Left Velocity (cm/s) Spectral Plaque Velocity (cm/s) Spectral Plaque Syst/Diast Broadening Syst/Diast Broadening 102.00/16.20 Prox CCA 105.50/ 23.00 98.40/ 19.90 Mid CCA 92.90 / 25.80 73.30/ 19.50 Distal CCA 87.10 / 27.10 52.70/ 13.40 Prox ICA 60.70 / 16.60 44.30/ 15.00 Mid ICA 53.40 / 13.80 56.70/ 22.60 Distal ICA 59.80 / 18.50 78.80 ECA 85.70 0.80 ICA/CCA 0.70 Antegrade Vertebral Antegrade 50.60/ 13.40 cm/s 46.40/ 13.80 cm/s Tri Subclavian Tri 179.6 109.1 0 0 CONCLUSIONS Right ICA stenosis <50%. Left ICA stenosis <50%. Normal antegrade Doppler flow noted in the right vertebral artery. Normal antegrade Doppler flow noted in the left vertebral artery. Ventura Garner MD (Electronically Signed) Final Date: 08 February 2024 12:02 S
== END 2024-02-08 08:35 | disposition home or self-care (01) ==
LOC: RAD 08:35
PROVIDERS: PCP Family Medicine; Visit Provider Psychiatry & Neurology Neurology
DX: I51.89 Other ill-defined heart diseases (principal)
CPT/HCPCS: 93880

== ENCOUNTER 2024-02-27 12:56 | Oncology outpatient (recurring) (ONCR) | payer MEDICARE, MEDICAID, SELFPAY ==
[2024-02-27 13:31] LABS: Basophils # 0.1 10^3/uL (0.0-0.1); Basophils % 0.8 %; Eosinophils # 0.2 10^3/uL (0.0-0.8); Eosinophils % 2.2 %; Lymphocytes # 2.5 10^3/uL (0.8-4.8); Lymphocytes % 26.7 %; Mean Corpuscular HGB Conc 33.8 g/dL (30-55); Mean Corpuscular Hemoglobin 30.1 pg (27-33); Mean Corpuscular Volume 89.2 fl (85-98); Mean Platelet Volume 8.9 fL (7.4-10.4); Monocytes # 0.6 10^3/uL (0.2-0.9); Monocytes % 6.8 %; Neutrophils # 5.85 10^3/uL (1.8-7.7); Neutrophils % 63.3 %; Nucleated Red Blood Cells % 0 %; Platelet Count 369 10^3/cmm (157-399); Red Blood Count 4.15 10^6/uL (3.85-5.65); Red Cell Distribution Width 12.8 % (12.1-15.1); Reticulocyte % 1.8 % (0.5-2.0); White Blood Count 9.24 10^3/uL (3.29-11.43)
[2024-02-27 13:48] LABS: Alanine Aminotransferase 10 U/L (0-33); Albumin Level 4.8 g/dL (3.5-5.2); Alkaline Phosphatase 94 U/L (35-105); Anion Gap 10.7 (5-19); Aspartate Amino Transferase 12 U/L (0-32); Blood Urea Nitrogen 8 mg/dL (8-23); Calcium 9.3 mg/dL (8.5-10.5); Carbon Dioxide 31 mmol/L (22-29); Chloride 97 mmol/L (98-107); Creatinine Clr Calc Pharmacy 61.1911; Globulin 2.5 g/dL (1.3-4.6); Glomerular Filtration Rate 71.1 mL/min (90-130); Glucose 104 mg/dL (65-115); Iron 70 ug/dL (37-145); Osmolality Calculated 279 mOsm/kg (285-295); Potassium 3.7 mmol/L (3.5-5.1); Sodium 135 mmol/L (136-145); Total Bilirubin 0.5 mg/dL (0.15-1.2); Total Iron Binding Capacity 318 mcg/dl; Total Protein 7.3 g/dL (6.6-8.7); Unsaturated Iron Binding 248 ug/dL (112-347)
[2024-02-27 14:10] LABS: Folate Level 13.6 ng/mL (4.8-37.3)
[2024-02-27 15:54] LABS: Vitamin B12 219 pg/mL (232-1245)
[2024-03-01 16:20] LABS: Vitamin B6 Plasma 5.8 ng/mL (2.1-21.7)
[2024-03-02 11:20] LABS: Vitamin B1 (Thiamine),Blood 243 nmol/L (78-185)
[2024-03-20 14:35] LABS: Soluble Transferrin Receptor 0.93
== END 2024-03-14 23:59 | disposition home or self-care (01) ==
LOC: ONCMED 12:57
PROVIDERS: PCP Family Medicine; Visit Provider Internal Medicine Hematology & Oncology
DX: E53.8 Deficiency of other specified B group vitamins (principal)
CPT/HCPCS: 36415; 80053; 82607; 82746; 83010; 83540; 83550; 84207; 84238; 84425; 85025; 85045; 99204

== ENCOUNTER 2024-04-10 14:30 | Oncology outpatient (recurring) (ONCR) | payer MEDICARE, MEDICAID, SELFPAY ==
[2024-04-01 15:13] VITALS: BP 145/76; PULSE 64; RESP 18; TEMP 36.2; O2SAT 98
[2024-04-01] MEDS: cyanocobalamin 1,000 mcg/mL SDV 1000 MCG IM (15:14)
[2024-04-02] MEDS: cyanocobalamin 1,000 mcg/mL SDV 1000 MCG IM (14:57)
[2024-04-03] MEDS: cyanocobalamin 1,000 mcg/mL SDV 1000 MCG IM (11:43)
[2024-04-10] MEDS: cyanocobalamin 1,000 mcg/mL SDV 1000 MCG IM (12:48)
== END 2024-04-13 23:59 | disposition home or self-care (01) ==
PROVIDERS: PCP Family Medicine; Visit Provider Internal Medicine
DX: Z53.9 Procedure and treatment not carried out, unspecified reason (principal); Z79.899 Other long term (current) drug therapy; E53.8 Deficiency of other specified B group vitamins
CPT/HCPCS: 96372; 96401; J3420

== ENCOUNTER 2024-05-02 16:00 | Oncology outpatient (recurring) (ONCR) | payer MEDICARE, MEDICAID, SELFPAY ==
[2024-04-17] MEDS: cyanocobalamin 1,000 mcg/mL SDV 1000 MCG IM (15:16)
[2024-04-17 15:17] VITALS: BP 150/76; PULSE 72; RESP 16; TEMP 36.5; O2SAT 93
[2024-04-24] MEDS: cyanocobalamin 1,000 mcg/mL SDV 1000 MCG IM (12:53)
[2024-05-02] MEDS: cyanocobalamin 1,000 mcg/mL SDV 1000 MCG IM (15:21)
== END 2024-05-14 23:59 | disposition home or self-care (01) ==
PROVIDERS: PCP Family Medicine; Visit Provider Internal Medicine
DX: Z53.9 Procedure and treatment not carried out, unspecified reason (principal); Z79.899 Other long term (current) drug therapy; E53.9 Vitamin B deficiency, unspecified
CPT/HCPCS: 96372; 99214; J3420

== ENCOUNTER → 2024-05-06 14:55 | Outpatient (BNVA) | payer MEDICARE, MEDICAID, SELFPAY ==
[2024-05-06 15:10] VITALS: BP 146/72; BMI 24.5
== END ==
PROVIDERS: PCP Family Medicine; Visit Provider Internal Medicine
DX: R01.1 Cardiac murmur, unspecified (principal)
CPT/HCPCS: 99213

== ENCOUNTER → 2024-05-13 13:30 | Outpatient (BNVA) | payer MEDICARE, MEDICAID, SELFPAY ==
[2024-05-06 15:10] VITALS: BP 146/72; BMI 24.5
== END ==
PROVIDERS: PCP Family Medicine; Visit Provider Nurse Practitioner Family
DX: L81.4 Other melanin hyperpigmentation (principal); L57.8 Other skin changes due to chronic exposure to nonionizing radiation; L57.0 Actinic keratosis
CPT/HCPCS: 17000; 99213

== ENCOUNTER 2024-05-28 06:07 | Outpatient (CLI) | payer MEDICARE, MEDICAID, SELFPAY ==
[2024-05-06 15:10] VITALS: BP 146/72; BMI 24.5
--- NOTE | 2024-05-28 06:15 | USCV_ITS ---
Rola Morton Age: 69 Gender: F : 1955 Exam Date: 05/28/2024 06:27 Ordering Phys: Jenaro Oseguera M.D ([email or web address]) Technologist: Exam Location: [facility] [place] Indication: murmur BP: 120 / 70 HR: 69 Rhythm: Sinus Technical Quality: Good MEASUREMENTS (Male / Female) Normal Values 2D ECHO LV Diastolic Diameter PLAX 4.5 cm 4.2 - 5.9 / 3.9 - 5.3 cm IVS Diastolic Thickness 0.9 cm 0.6 - 1.0 / 0.6 - 0.9 cm IVS Systolic Thickness 1.4 cm LVPW Diastolic Thickness 1.3 cm 0.6 - 1.0 / 0.6 - 0.9 cm LVPW Systolic Thickness 1.8 cm LVOT Diameter 2.0 cm LV Ejection Fraction 2D Teich 64.8 % LV Ejection Fraction MOD 4C 66.2 % LV Ejection Fraction MOD 2C 72.7 % LV Ejection Fraction 2C AL 72.4 % LA Diameter 2.9 cm RA Systolic Volume 4C AL 19.7 ml RA Systolic Volume 4C MOD 18.5 ml Aorta at Sinotubular Diameter 2.9 cm IVC Diameter 1.8 cm M-MODE LA Ao Ratio MM 1.0 AV Cusp Separation MM 1.9 cm DOPPLER AV Peak Velocity 156.3 cm/s LVOT Peak Velocity 105.0 cm/s AV Area Cont Eq vti 2.4 cm squared AV Area Cont Eq pk 2.1 cm squared MV Peak Velocity 88.0 cm/s MV Area PHT 4.7 cm squared Mitral E to A Ratio 1.0 TV Peak Velocity 171.0 cm/s TR Peak Velocity 206.0 cm/s TR Peak Gradient 17.0 mmHg TV Peak E Velocity 81.0 cm/s PV Peak Velocity 107.0 cm/s FINDINGS Left Ventricle Left ventricle is normal in size. LV systolic function is normal with EF of 60 to 65%. No regional wall motion abnormalities are seen. Right Ventricle Normal in size and function Right Atrium Normal in size Left Atrium Normal in size Mitral Valve Structurally normal mitral valve. Trace mitral regurgitation. Aortic Valve Aortic valve is thickened. No significant stenosis. Mild aortic regurgitation. Tricuspid Valve Mild tricuspid regurgitation. Insufficient TR jet to calculate RVSP. Pulmonic Valve Not well visualized Pericardium Normal Aorta Normal in size IVC Appears to be normal CONCLUSIONS LV systolic function is normal with EF of 60 to 65%. Trace mitral regurgitation. Mild aortic regurgitation Mild tricuspid regurgitation. Compared to prior echocardiogram from 2021, LV systolic function has improved and is normal now. Jenaro Oseguera MD (Electronically Signed) Final Date: 04 June 2024 08:39 S
== END 2024-05-28 06:08 | disposition home or self-care (01) ==
LOC: RAD 06:10
PROVIDERS: PCP Family Medicine; Visit Provider Internal Medicine
DX: R01.1 Cardiac murmur, unspecified (principal); I35.8 Other nonrheumatic aortic valve disorders; I35.1 Nonrheumatic aortic (valve) insufficiency; I07.1 Rheumatic tricuspid insufficiency
CPT/HCPCS: 93306

== ENCOUNTER 2024-06-19 11:47 | Oncology outpatient (recurring) (ONCR) | payer MEDICARE, MEDICAID, SELFPAY ==
[2024-05-06 15:10] VITALS: BP 146/72; BMI 24.5
[2024-06-19 12:07] LABS: Basophils # 0.1 10^3/uL (0.0-0.1); Basophils % 0.6 %; Eosinophils # 0.2 10^3/uL (0.0-0.8); Eosinophils % 2.4 %; Hematocrit 37.1 % (36-47); Lymphocytes # 2.8 10^3/uL (0.8-4.8); Lymphocytes % 34.6 %; Mean Corpuscular HGB Conc 34.2 g/dL (30-55); Mean Corpuscular Hemoglobin 29.2 pg (27-33); Mean Corpuscular Volume 85.3 fl (85-98); Monocytes # 0.6 10^3/uL (0.2-0.9); Neutrophils # 4.33 10^3/uL (1.8-7.7); Neutrophils % 54.3 %; Nucleated Red Blood Cells % 0 %; Platelet Count 323 10^3/cmm (157-399); Red Blood Count 4.35 10^6/uL (3.85-5.65); White Blood Count 7.98 10^3/uL (3.29-11.43)
[2024-06-19 12:45] LABS: Alanine Aminotransferase 12 U/L (0-33); Albumin Level 4.7 g/dL (3.5-5.2); Alkaline Phosphatase 92 U/L (35-105); Anion Gap 14.6 (5-19); Aspartate Amino Transferase 13 U/L (0-32); Blood Urea Nitrogen 12 mg/dL (8-23); Calcium 9.5 mg/dL (8.5-10.5); Carbon Dioxide 30 mmol/L (22-29); Chloride 96 mmol/L (98-107); Creatinine Clr Calc Pharmacy 61.9514; Globulin 2.3 g/dL (1.3-4.6); Glucose 108 mg/dL (65-115); Osmolality Calculated 284 mOsm/kg (285-295); Potassium 3.6 mmol/L (3.5-5.1); Sodium 137 mmol/L (136-145); Thyroid Stimulating Hormone 1.09 uIU/mL (0.27-4.20); Total Bilirubin 0.5 mg/dL (0.15-1.2); Vitamin B12 664 pg/mL (232-1245)
[2024-06-19 13:00] LABS: 25 Hydroxy Vitamin D 110 ng/mL (30-100)
== END 2024-07-12 23:59 | disposition home or self-care (01) ==
PROVIDERS: Nurse Practitioner; PCP Family Medicine; Visit Provider Internal Medicine
DX: Z53.9 Procedure and treatment not carried out, unspecified reason (principal); E53.8 Deficiency of other specified B group vitamins; M79.10 Myalgia, unspecified site; M17.11 Unilateral primary osteoarthritis, right knee; M17.12 Unilateral primary osteoarthritis, left knee; M25.562 Pain in left knee; M51.369 Other intervertebral disc degeneration, lumbar region without mention of lumbar back pain or lower extremity pain; R53.83 Other fatigue; F31.81 Bipolar II disorder; F17.290 Nicotine dependence, other tobacco product, uncomplicated; F10.90 Alcohol use, unspecified, uncomplicated; G47.9 Sleep disorder, unspecified
CPT/HCPCS: 36415; 80053; 82306; 82607; 84443; 85025; 99213

== ENCOUNTER → 2024-08-13 09:45 | Outpatient (BNVA) | payer MEDICARE, MEDICAID, SELFPAY ==
[2024-05-06 15:10] VITALS: BP 146/72; BMI 24.5
== END ==
PROVIDERS: PCP Family Medicine; Visit Provider Obstetrics & Gynecology
DX: R30.0 Dysuria (principal)
CPT/HCPCS: 81000; 87077; 87086; 87184

== ENCOUNTER → 2024-10-28 11:13 | Outpatient (BNVA) | payer MEDICARE, MEDICAID, SELFPAY ==
[2024-05-06 15:10] VITALS: BP 146/72; BMI 24.5
== END ==
PROVIDERS: PCP Family Medicine; Visit Provider Family Medicine
DX: R10.9 Unspecified abdominal pain (principal)
CPT/HCPCS: 80053; 81000; 83690; 85025; 87086

== ENCOUNTER 2024-10-29 08:46 | Outpatient (CLI) | payer MEDICARE, MEDICAID, SELFPAY ==
[2024-05-06 15:10] VITALS: BP 146/72; BMI 24.5
--- NOTE | 2024-10-29 09:00 | CT_ITS ---
WS: [id number] CT ABDOMEN PELVIS TECHNIQUE: Contrast-enhanced CT of the abdomen and pelvis with coronal and sagittal reformatted images. CLINICAL INFORMATION: progressive wt loss w nausea vomiting RU/RL quadrant pain COMPARISON: 2019 DLP: 246.[address] scans at [facility] use at least one of these dose optimization techniques: automated exposure control; mA and/or kV adjustment per patient size (includes targeted exams where dose is matched to clinical indication); or iterative reconstruction. FINDINGS: Fatty liver. Normal portal vein and splenic vein. Cholecystectomy clips. Lung bases are well aerated. Adrenal glands are normal. Normal renal parenchymal enhancement. No hydronephrosis. Normal caliber abdominal aorta. Aortic calcification. Normal pancreatic parenchymal enhancement. Normal GE junction. Normal sigmoid colon. Mild constipation in the transverse colon and RIGHT colon. Appendix is not visualized although no evidence of acute appendicitis. Prior postoperative changes lumbar spine. CT/CT abdomen pelvis w con* [id number] IMPRESSION: 1. Fatty liver. 2. Cholecystectomy. 3. Appendix not well visualized but no evidence of acute appendicitis. 4. No other acute findings.
[2024-10-29] MEDS: iohexol 350 mg/mL 500 mL Btl (per mL) IV (09:14)
== END 2024-10-29 08:47 | disposition home or self-care (01) ==
LOC: RAD 08:48
PROVIDERS: PCP Family Medicine; Visit Provider Family Medicine
DX: R10.11 Right upper quadrant pain (principal); R10.31 Right lower quadrant pain; R11.2 Nausea with vomiting, unspecified; K76.0 Fatty (change of) liver, not elsewhere classified
CPT/HCPCS: 74177

== ENCOUNTER → 2024-11-11 14:06 | Outpatient (BNVA) | payer MEDICARE, MEDICAID, SELFPAY ==
[2024-10-29 10:01] VITALS: BP 146/72; BMI 24.5
== END ==
PROVIDERS: PCP Family Medicine; Visit Provider Nurse Practitioner Family
DX: L82.1 Other seborrheic keratosis (principal); L57.8 Other skin changes due to chronic exposure to nonionizing radiation; L81.4 Other melanin hyperpigmentation; Z08 Encounter for follow-up examination after completed treatment for malignant neoplasm; Z85.828 Personal history of other malignant neoplasm of skin
CPT/HCPCS: 11102; 17000; 99213

== ENCOUNTER 2025-01-04 13:09 | Emergency (ER) | payer MEDICARE, MEDICAID, SELFPAY ==
[2024-10-29 10:01] VITALS: BP 146/72; BMI 24.5
[2025-01-04 13:14] VITALS: BP 103/57; PULSE 82; RESP 16; TEMP 36.4; O2SAT 93; BMI 20.9
[2025-01-04 13:30] VITALS: BP 117/79; PULSE 86; RESP 18; O2SAT 97
--- NOTE | 2025-01-04 13:54 | W.ED.BACK ---
HPI - Back Pain/Injury General: Chief Complaint: Back Pain/Injury Stated Complaint: low back / legs pain Time Seen by Provider: 01/04/25 13:23 Source: patient and family Mode of arrival: ambulatory Limitations: no limitations History of Present Illness: This patient made her way to the emergency department with the assistance of her daughter today because of low back pain. The patient had a lumbar fusion with fusion of her SI joints done at this facility in 2021. She states that after she recovered from her surgery she has been very functional and doing well. Apparently her spouse this past spring and she has been engaging in more yard work and other activities which she does not normally participate in. She states that she has had back pain now for several weeks that has been exacerbated by those activities but she did not have any falls or other injuries. She has been through a couple courses of medications through primary care without any relief. Patient's pain is predominantly in her lumbar region although she has had pain in her mid upper back when she uses hedge clippers and other tremors which require her to use her upper arms. She states that she has been more stiff and sore the last couple days and had some pain down the front part of her legs as well. She has not had any perineal numbness. She states when she wipes etc. she has no loss of sensation. She has not had any loss of bowel or bladder control. She states when she empties her bladder it in fact feels empty and she does not have a urgency shortly thereafter. She had an episode of hard stool because of some back pain when she is straining but she she has not had any incontinence of stool etc. She denies any fevers. She denies any other constitutional symptoms. She does not have any history of heart disease etc. MD elicited complaint: back pain Pertinent past history: prior back pain Severity: moderate Associated symptoms: Reports no associated symptoms; Deny abdominal pain, dysuria, fever(s), nausea, syncope or vomiting Related Data Home Medications ?Medication ?Instructions ?Recorded ?Confirmed atorvastatin 20 mg tablet 20 mg PO DAILY 01/04/25 01/04/25 celecoxib 100 mg capsule 100 mg PO BID PRN Inflammation 01/04/25 01/04/25 cyanocobalamin (vitamin B-12) 1,000 mcg IM Q30D 01/04/25 01/04/25 1,000 mcg/mL injection solution hydrochlorothiazide 25 mg tablet 25 mg PO .@5AM 01/04/25 01/04/25 hydrocodone 7.5 mg-acetaminophen 1 tab PO Q12H PRN Pain 01/04/25 01/04/25 325 mg tablet omeprazole 20 mg capsule,delayed 20 mg PO BID 01/04/25 01/04/25 release potassium chloride 10 mEq 10 meq PO TID 01/04/25 01/04/25 capsule,extended release sumatriptan succinate 6 mg/0.5 mL 6 mg SUBCUT DAILY PRN Migraine 01/04/25 01/04/25 subcutaneous pen injector (Imitrex Headache STATdose Pen) trazodone 100 mg tablet 200 mg PO BEDTIME PRN insomnia 01/04/25 01/04/25 Previous Rx's ?Medication ?Instructions ?Recorded ondansetron HCl 4 mg tablet 4 mg PO Q8H PRN nausea and 10/28/24 vomiting #14 tabs lamotrigine 150 mg tablet 150 mg PO .7 pm #90 tabs 10/29/24 (Lamictal) alprazolam 0.5 mg tablet 0.5 mg PO BID PRN anxiety #30 tabs 12/02/24 lidocaine 5 % topical patch 1 patch topical DAILY #15 ea 12/04/24 prednisone 10 mg tablet 10 mg PO DAILY #40 tabs 12/16/24 tramadol 50 mg tablet 50 mg PO Q8H PRN pain 15 days #45 01/01/25 tabs nitrofurantoin 100 mg PO BID 5 days #10 caps 01/04/25 monohydrate/macrocrystals 100 mg capsule (Macrobid) tizanidine 2 mg capsule 2 mg PO BID PRN muscle spasticity 01/04/25 #20 caps Allergies Allergy/AdvReac Type Severity Reaction Status Date / Time codeine Allergy Unknown Unknown Verified 01/04/25 13:17 meperidine (From Demerol) Allergy Unknown Unknown Verified 01/04/25 13:17 Penicillins Allergy Unknown Unknown Verified 01/04/25 13:17 prochlorperazine (From Allergy Unknown Unknown Verified 01/04/25 13:17 Compazine) Review of Systems Const: Denies: fever(s) ENMT: Denies: throat pain, odynophagia, nasal discharge or nasal congestion Card: Denies: palpitations, syncope or pre-syncope Resp: Denies: productive cough or non-productive cough GI: Reports: constipation; Denies: abdominal pain, nausea or vomiting : Denies: difficulty voiding, dysuria or urinary frequency Musc: Reports: back pain; Denies: extremity pain or extremity swelling Skin/Breast: Denies: rash Neuro: Denies: headache(s), numbness in extremities or weakness in extremities PFSH ED PFSH: Medical History Vaping nicotine dependence, tobacco product Primary osteoarthritis of left knee Hypercholesterolemia No pertinent past medical history neghx: dm,thyroid,dvt/pe PCP: Dr. Gallardo Hypertension Nonischemic cardiomyopathy Atherosclerosis of coronary artery Psychiatric care Solar aging of skin Trimalleolar fracture of right ankle Non morbid obesity Alcohol dependence in sustained full remission Generalized anxiety disorder Bipolar II disorder Surgical History H/O vaginal surgery (~04/04/23) single incision midurethral sling, posterior colporrhaphy, cystoscopy H/O: hysterectomy (~1986) took ovaries, she reports she had this done due to heavy cycles Hx laparoscopic cholecystectomy (~1979) History of lumbar fusion (~01/2022) Family History Daughter Breast cancer dx age 30 Denies family history of Colon cancer Ovarian cancer Diabetes Heart disease Hypercholesteremia Hypertension Uterine cancer Thyroid disease Stroke Social History Smoking and tobacco/nicotine status: current every day tobacco/nicotine user Physical Exam Narrative: EXAM NARRATIVE: She is sitting comfortably in the examination bed without any signs of discomfort. She interacts in a normal and appropriate fashion. Const: COMMON NORMALS: no acute distress, average body habitus and patient oriented x3 GENERAL APPEARANCE: cooperative HENMT: COMMON NORMALS: normocephalic, Normal nasal mucous membranes and turbinates present, moist oral mucous membranes and oropharynx normal HEAD & SCALP: normocephalic NOSE: Normal nasal mucous membranes and turbinates present Eye: COMMON NORMALS: Equal, round and reactive pupils present, EOMs intact bilaterally and conjunctivae normal CONJUNCTIVA: Yes conjunctivae normal PUPIL: Yes Equal, round and reactive pupils present Neck/C-Spine: COMMON NORMALS: full ROM and no lymphadenopathy CERVICAL SPINE: No Cervical spine tenderness Resp: COMMON NORMALS: No use of accessory muscles and clear to auscultation bilaterally EFFORT & INSPECTION: Yes able to speak in complete sentences AUSCULTATION: clear to auscultation bilaterally Cardio: COMMON NORMALS: Peripheral pulses 2+ throughout PERIPHERAL PULSES: Peripheral pulses 2+ throughout Back/Pelvis: COMMON NORMALS: thoracic and lumbar spine normal to inspection and straight leg raise negative bilaterally OTHER: Examination the axial spine reveals some intrascapular tenderness to palpation in the soft tissues but no midline tenderness or step-off. She also has tenderness at the paralumbar region particularly on the left posterior superior iliac spine region. She has negative straight leg raising bilaterally. She has no evidence of decreased muscle strength, muscle bulk of the lower extremities. Rotation of her trunk to the left and to the right reproduces symptoms particular in the left paravertebral region. Extremity: COMMON NORMALS: normal to inspection, full ROM, no joint enlargement, no calf tenderness and no pedal edema Neuro: COMMON NORMALS: patient oriented x3, moves all extremities, no focal motor deficits, no sensory deficits noted and deep tendon reflexes 2+ bilaterally Psych: COMMON NORMALS: mental status grossly normal Skin: COMMON NORMALS: no rashes or lesions noted, no wounds and turgor normal GENERAL SKIN EXAM: no rashes or lesions noted and turgor normal Course Reevaluation(s): Reevaluation #1: Shared all results with the patient and daughter. It appears she likely has a concomitant UTI that may or may not be contributing to her backache as well. We discussed plan treatment and expectations and also modalities to aid in her back pain. He also discussed return precautions. She voiced understanding of all the discussion and is stable to be discharged at this time. Time: 16:40 Vital Signs: Vital signs: Vital Signs Temperature 97.6 F 01/04/25 13:14 Pulse Rate 69 01/04/25 15:56 Respiratory Rate 18 01/04/25 13:30 Blood Pressure 111/62 01/04/25 15:56 Pulse Oximetry 100 01/04/25 15:56 Oxygen Delivery Me thod Room Air 01/04/25 15:56 MDM - Back Pain/Injury Medical Decision Making This patient presented to the emergency department as noted in the HPI. Despite treatments initiated by primary care she has not continued to improve and still has low back pain. She had no concerning symptoms such as loss of bowel or bladder control muscle weakness etc. She has been engaging a lot more physical activity since the passage of her spouse. This is primarily been involved in care and maintenance of their home including a lot of yard work weeding etc. There has been no falls or trauma and known fever. Her clinical examination revealed soft tissue tenderness with minimal if any midline tenderness. She had no muscular weakness and no sensory loss. Images were obtained due to her prior back surgery and the need to establish that prior surgical site was not disrupted over there was no new fracture etc. These findings were reassuring. A urinalysis was also obtained which did show significant findings suggestive of urinary tract infection. It is likely that she has a concomitant urinary tract infection which may be contributing to her ongoing backache. She certainly is not septic has normal vital signs and is certainly amenable to treatment of a lower urinary tract infection at this time. We have also informed her about ice or cool pack to the low back rather than using a heating pad as well as a muscle relaxant to take particularly at night rather than using an opioid analog like tramadol. All questions were answered and she voiced understanding and was appreciative of care. Medical Records I reviewed the patient's medical records. Operative note from January 2022 reviewed Labs I reviewed the patient's lab results. Radiology Impressions Lumbar Spine CT 01/04/25 14:03 IMPRESSION: Intact multilevel fusion. No acute abnormality noted. Laboratory Results Urine Color Yellow (Yellow) 01/04/25 15:50 Urine Appearance Cloudy (CLEAR) A 01/04/25 15:50 Urine pH 6.0 (5-7) 01/04/25 15:50 Ur Specific [place] 1.012 (1.005-1.030) 01/04/25 15:50 Urine Protein Trace (Negative) A 01/04/25 15:50 Urine Glucose (UA) Negative (Normal) 01/04/25 15:50 Urine Ketones Negative (Negative) 01/04/25 15:50 Urine Blood 1+ (Negative) A 01/04/25 15:50 Urine Nitrate Negative (Negative) 01/04/25 15:50 Urine Bilirubin Negative (Negative) 01/04/25 15:50 Urine Urobilinogen 1.0 mg/dL (Negative) 01/04/25 15:50 Ur Leukocyte Esterase 3+ (Negative) A 01/04/25 15:50 Urine RBC 6-10 /hpf (0-2) 01/04/25 15:50 Urine WBC >100 /hpf (0-5) H 01/04/25 15:50 Ur Squamous Epith Cells 0-5 /hpf (0-5) 01/04/25 15:50 Amorphous Sediment Not Reportable 01/04/25 15:50 Urine Bacteria 4+ /hpf (NONE) H 01/04/25 15:50 Hyaline Casts 6.61 /lpf 01/04/25 15:50 All radiology interpretation(s) finalized by discharge Discharge Plan Discharge Patient Disposition: Home Clinical Impression: Back pain, Urinary tract infection Condition: Stable Prescriptions: New nitrofurantoin monohyd/m-cryst [Macrobid] 100 mg capsule 100 mg PO BID 5 Days Qty: 10 0RF Rx Instructions: must administer with a meal/food tizanidine 2 mg capsule 2 mg PO BID PRN (Reason: muscle spasticity) Qty: 20 0RF No Action ondansetron HCl 4 mg tablet 4 mg PO Q8H PRN (Reason: nausea and vomiting) Qty: 14 0RF lamotrigine [Lamictal] 150 mg tablet 150 mg PO .7 pm Qty: 90 3RF prednisone 10 mg tablet 10 mg PO DAILY Qty: 40 0RF alprazolam 0.5 mg tablet 0.5 mg PO BID PRN (Reason: anxiety) Qty: 30 1RF lidocaine 5 % adhesive patch,medicated 1 patch topical DAILY Qty: 15 1RF Rx Instructions: leave on most painful area for up to 12 hrs tramadol 50 mg tablet 50 mg PO Q8H PRN (Reason: pain) 15 Days Qty: 45 0RF hydrocodone-acetaminophen 7.5-325 mg tablet 1 tab PO Q12H PRN (Reason: Pain) cyanocobalamin (vitamin B-12) 1,000 mcg/mL solution 1,000 mcg IM Q30D potassium chloride 10 mEq capsule, extended release 10 meq PO TID atorvastatin 20 mg tablet 20 mg PO DAILY trazodone 100 mg tablet 200 mg PO BEDTIME PRN (Reason: insomnia) omeprazole 20 mg capsule,delayed release(DR/EC) 20 mg PO BID hydrochlorothiazide 25 mg tablet 25 mg PO .@5AM celecoxib 100 mg capsule 100 mg PO BID PRN (Reason: Inflammation) sumatriptan succinate [Imitrex STATdose Pen] 6 mg/0.5 mL pen injector 6 mg SUBCUT DAILY PRN (Reason: Migraine Headache) Discharge Orders: Discharge ED (Routine); Ordered 01/04/25 Ordered By: Cirilo Coleman Referrals: Sven Gallardo MD [Primary Care Provider, [facility]] - 7-10 days Discharge Diet: Usual diet Discharge Activity: Increase activity as tolerated and Limit activity as instructed Patient Instructions: Opioid Safety, Pain Management, Patient Portal & Tania Instructions Activity Restrictions/Additional Instructions: As we discussed while you are in the emergency department your scan did not reveal that there was any disruption in your previous surgery. Pain is likely as a result of a combination of overuse and muscle strain combine with your urinary tract infection. We have provided a prescription for antibiotics to take for the next 5 days to treat your infection. We have also prescribed a muscle relaxant that you may use to help your muscle pain and spasms. We would not recommend taking this with your tramadol and you should stop taking your tramadol. You should use cool pack or ice pack to your low back for 10 to 15 minutes 3-4 times daily. If it anytime your pain worsens or you develop symptoms of weakness, inability control your bowels or bladder or any other concerns such as fever etc. return to this or the nearest emergency department for reevaluation. Print Language: Nepalese Coding Level of Care Code ED Youth Leader for Mauro Ariza
--- NOTE | 2025-01-04 14:03 | CTR_ITS ---
PROCEDURE INFORMATION: Exam: CT Lumbar Spine Without Contrast Exam date and time: 01/04/2025 2:08 PM Age: 69 years old Clinical indication: Low back pain; Prior surgery; Surgery date: 6+ months; Surgery type: Fusion; Additional info: Prior fusion-increased pain TECHNIQUE: Imaging protocol: Computed tomography of the lumbar spine without contrast. Radiation optimization: All CT scans at this facility use at least one of these dose optimization techniques: automated exposure control; mA and/or kV adjustment per patient size (includes targeted exams where dose is matched to clinical indication); or iterative reconstruction. COMPARISON: MR lumbar spine wo con* [id number] 08/16/2021 3:10 PM RADIATION DOSE METRICS: Total DLP (mGy-cm): 420.4 FINDINGS: Bones/joints: The bony structures demonstrate diffuse osteopenia. There has been surgical fusion at the L3-S1 level(s). Bony alignment is normal and the hardware is in good position. I see no evidence of hardware loosening.There is no acute fracture. Soft tissues: Unremarkable. CT/CT lumbar spine wo con* [id number] IMPRESSION: Intact multilevel fusion. No acute abnormality noted.
[2025-01-04 15:56] VITALS: BP 111/62; PULSE 69; O2SAT 100
[2025-01-04 16:11] LABS: Glucose Urine UA Negative (Normal); Nitrate Urine Negative (Negative); Specific Gravity, Urine 1.012 (1.005-1.030)
[2025-01-04 16:14] LABS: Add Urine Microscopic? YES
[2025-01-04 16:22] LABS: UA Slide Review UA Slide Review Perf
[2025-01-04] MEDS: nitrofurantoin SR (BID) 100 mg Capsule PO (16:54)
[2025-01-04 16:56] VITALS: BP 125/64; PULSE 63; O2SAT 93
== END 2025-01-04 16:58 | disposition home or self-care (01) ==
PROVIDERS: Emergency Provider Emergency Medicine; PCP Family Medicine
DX: N39.0 Urinary tract infection, site not specified (principal); M54.50 Low back pain, unspecified
CPT/HCPCS: 51798; 72131; 81001; 87077; 87086; 87186; 99284; J9999

== ENCOUNTER → 2025-01-14 09:00 | Outpatient (BNVA) | payer MEDICARE, MEDICAID, SELFPAY ==
[2024-10-29 10:01] VITALS: BP 146/72; BMI 24.5
== END ==
PROVIDERS: PCP Family Medicine; Visit Provider Family Medicine
DX: E87.6 Hypokalemia (principal)
CPT/HCPCS: 80053

== ENCOUNTER → 2025-02-04 08:07 | Outpatient (BNVA) | payer MEDICARE, SELFPAY ==
[2024-10-29 10:01] VITALS: BP 146/72; BMI 24.5
== END ==
PROVIDERS: PCP Family Medicine; Visit Provider Nurse Practitioner Family
DX: L57.8 Other skin changes due to chronic exposure to nonionizing radiation (principal); D22.5 Melanocytic nevi of trunk; L81.4 Other melanin hyperpigmentation; L82.1 Other seborrheic keratosis; Z08 Encounter for follow-up examination after completed treatment for malignant neoplasm; Z85.828 Personal history of other malignant neoplasm of skin; L82.0 Inflamed seborrheic keratosis; L29.89 Other pruritus; R20.8 Other disturbances of skin sensation; Z78.9 Other specified health status; R58 Hemorrhage, not elsewhere classified; L53.8 Other specified erythematous conditions; L57.0 Actinic keratosis; D48.5 Neoplasm of uncertain behavior of skin
CPT/HCPCS: 11102; 17000; 17110; 99213

== ENCOUNTER 2025-04-03 14:00 | Oncology outpatient (recurring) (ONCR) | payer MEDICARE, SELFPAY ==
[2024-05-06 15:10] VITALS: BP 146/72; BMI 24.5
[2024-10-29 10:01] VITALS: BP 146/72; BMI 24.5
[2025-03-19 12:30] LABS: Hematocrit 36.3 % (36-47); Hemoglobin 12.40 g/dL (11.27-16.99); Mean Corpuscular HGB Conc 34.2 g/dL (30-55); Mean Corpuscular Hemoglobin 30.0 pg (27-33); Mean Corpuscular Volume 87.7 fl (85-98); Nucleated Red Blood Cells % 0 %; Platelet Count 281 10^3/cmm (157-399); Red Blood Count 4.14 10^6/uL (3.85-5.65); White Blood Count 7.61 10^3/uL (3.29-11.43)
[2025-03-19 12:49] LABS: Alanine Aminotransferase 12 U/L (0-33); Albumin Level 4.7 g/dL (3.5-5.2); Alkaline Phosphatase 75 U/L (35-105); Anion Gap 16.0 (5-19); Aspartate Amino Transferase 15 U/L (0-32); Blood Urea Nitrogen 9 mg/dL (8-23); Calcium 9.6 mg/dL (8.5-10.5); Carbon Dioxide 28 mmol/L (22-29); Chloride 94 mmol/L (98-107); Ferritin 93 ng/mL (15-150); Globulin 2.5 g/dL (1.3-4.6); Glucose 110 mg/dL (65-115); Iron 100 ug/dL (37-145); Osmolality Calculated 277 mOsm/kg (285-295); Potassium 4.0 mmol/L (3.5-5.1); Sodium 134 mmol/L (136-145); Total Iron Binding Capacity 338 mcg/dl; Total Protein 7.2 g/dL (6.6-8.7); Unsaturated Iron Binding 238 ug/dL (112-347)
[2025-03-19 13:04] LABS: Vitamin B12 888 pg/mL (232-1245)
--- NOTE | 2025-04-03 14:00 | MM_ITS ---
WS: [id number] BILATERAL SCREENING DIGITAL TOMOSYNTHESIS MAMMOGRAM WITH CAD HISTORY: screening COMPARISON: 08/15/2023, 10/01/2008 Bilateral CC and MLO views with tomosynthesis and synthetic mammography submitted. Computer aided detection analyzed. Breast composition: There are scattered areas of fibroglandular density. No suspicious masses, microcalcifications or architectural distortion. Bilateral benign arterial line round calcifications. MM/MM scr BI tomosynthesis [id number] IMPRESSION: BI-RADS: 2 - Benign. FOLLOW UP: 1 Year Follow-up
== END 2025-04-13 23:59 | disposition home or self-care (01) ==
LOC: RAD 04-04 → ONCMED 04-04 07:47
PROVIDERS: PCP Family Medicine; Visit Provider Internal Medicine
DX: Z12.31 Encounter for screening mammogram for malignant neoplasm of breast; R92.323 Mammographic fibroglandular density, bilateral breasts; R92.1 Mammographic calcification found on diagnostic imaging of breast; Z53.9 Procedure and treatment not carried out, unspecified reason
CPT/HCPCS: 36415; 77063; 77067; 80053; 82607; 82728; 83010; 83540; 83550; 83615; 83921; 85025; 85045; 85651; 86140; 99213